=== PATIENT | female | born 2000 | race Caucasian/White ===

== ENCOUNTER 2019-07-09 16:17 | Emergency (ER) | payer OTHER, SELFPAY ==
[2019-07-09 16:27] VITALS: BP 152/79; PULSE 95; RESP 100; TEMP 36.8; O2SAT 16
--- NOTE | 2019-07-09 16:36 | ED.BACK ---
HPI - Back Pain/Injury General Chief Complaint: Back Pain/Injury Stated Complaint: Sharp middle back pain Time Seen by Provider: 07/09/19 16:36 Source: patient and RN notes reviewed History of Present Illness HPI Narrative: Patient is a 19-year-old female that presents the urgent care with complaints of mid back pain. Patient states that it radiates up to the shoulder blades occasionally. Patient states that she took 3 test on Friday and she is currently . Patient states she has a [facility] appointment on the . Patient was requesting to find out how far along she was . Patient seemed less concerned about her back pain. Patient has not used anything for her pain. Denies any urinary symptoms. No other acute complaints. No acute distress noted. Patient read the plan of care. Related Data Home Medications Medication Instructions Recorded Confirmed No Home Medications 07/09/19 07/09/19 Allergies Allergy/AdvReac Type Severity Reaction Status Date / Time No Known Allergies Allergy Unknown Verified 07/09/19 16:33 Review of Systems Review of Systems: Narrative: CONSTITUTIONAL: Denies fever, chills, or sweats. EYES: Denies visual changes, redness, or discharge. ENT: Denies rhinorrhea, congestion, sore throat, or otalgia. CARDIOVASCULAR: Denies chest pain, palpitations, or edema. RESPIRATORY: Denies cough or dyspnea. GASTROINTESTINAL: Denies abdominal pain, nausea, vomiting, or diarrhea. GENITOURINARY: Denies dysuria or hematuria. SKIN: Denies rash or itching. MUSCULOSKELETAL: Reports of mid back pain NEUROLOGIC: Denies headache, numbness, or weakness. All other systems reviewed are negative, except as documented in HPI. PMFSH Comments At the time of my signature, I reviewed and agree with the nursing past medical, surgical, social, and family history. There is no relevant family history pertinent to the patient complaint. Exam Narrative: Exam Narrative: GENERAL: This is a well-nourished, well-developed patient, in no apparent distress. HEAD: normocephalic, atraumatic. EYES: PERRL. Sclera clear/white. Vision is grossly intact. EARS: External ears normal NOSE: External nose normal with no obvious nasal discharge THROAT: Mucous membranes moist NECK: Neck supple CARDIOVASCULAR: Regular rate and rhythm without murmurs, gallops, or rubs. RESPIRATORY: Clear to auscultation. Breath sounds equal bilaterally. No wheezes, rales, or rhonchi. SKIN: warm, intact with no suspicious lesions or rash, good texture and turgor. NEURO: awake, alert, and oriented to person, place and time. There were no obvious focal neurologic abnormalities. EXTREMITIES: No clubbing, cyanosis, or edema. BACK: Mild mid thoracic tenderness without crepitus or deformity; negative bilateral CVA tenderness Course Vital Signs Vital signs: Vital Signs Temperature 98.2 F 07/09/19 16:27 Pulse Rate 95 07/09/19 16:27 Respiratory Rate 100 H 07/09/19 16:27 Blood Pressure 152/79 H 07/09/19 16:27 Pulse Oximetry 16 L 07/09/19 16:27 Temperature 98.2 F 07/09/19 16:27 Pulse Rate 95 07/09/19 16:27 Respiratory Rate 100 H 07/09/19 16:27 Blood Pressure 152/79 H 07/09/19 16:27 Pulse Oximetry 16 L 07/09/19 16:27 Reviewed?patient is informed that they may have pre-hypertension or hypertension based on a blood pressure reading in the department. I recommend the patient call the primary care provider listed on their discharge instructions or a physician of their choice this week to arrange follow-up for further evaluation of possible pre-hypertension or hypertension. MDM - Back Pain/Injury MDM Narrative Medical decision making narrative: Advised the patient to use Tylenol as needed for back pain. May use heating pad or ice intermittently as needed. Follow-up with [facility] as scheduled on July 19. Differential Diagnosis Differential diagnosis: Likely lumbar radiculopathy, sciatica, strain of lumbar region and thoracic back
== END 2019-07-09 16:50 | disposition home or self-care (01) ==
PROVIDERS: Emergency Provider Nurse Practitioner Family
DX: M54.6 Pain in thoracic spine (principal)
CPT/HCPCS: 99211; G0463

== ENCOUNTER → 2019-07-26 13:23 | Outpatient (CLI) | payer OTHER, SELFPAY ==
--- NOTE | ~2019-07-26 | US_ITS ---
EXAMINATION: US OB <= 14 weeks fetus DATE: 07/26/2019 14:16 INDICATION: Establish dating of during first trimester. TECHNIQUE: Real-time pelvic ultrasound utilizing both a transvaginal and transabdominal probe was pe rformed. The interpreting radiologist was not present for the study. COMPARISON: None. FINDINGS: The uterus measures 12.6 x 7.1 x 8.0 cm. There is an intrauterine gestational sac. A yolk sac and fe courtney pole are identified. The crown rump length measures 5.8 cm, which correlates with an estimated ge stational age of 12 weeks and 2 days. heart motion is identified measuring 162 beats per minute (bpm) by M-mode Doppler. The right ovary measures 2.9 x 1.7 x 3.5 cm. The left ovary measures 2.9 x 1.2 x 1.7 cm. There is no free fluid in the pelvis. IMPRESSION: 1. Single living fetus with heart rate of 162 bpm. 2. Gestational age by ultrasound of 12 weeks 2 day(s) +/- 1 week and 1 day with ultrasound estimated date of delivery (ARTEMIO) of 02/05/2020. Reviewed, dictated and finalized at location A. [facility] IMPRESSION: 1. Single living fetus with heart rate of 162 bpm. 2. Gestational age by ultrasound of 12 weeks 2 day(s) +/- 1 week and 1 day wit h ultrasound estimated date of delivery (ARTEMIO) of 02/05/2020.
== END ==
PROVIDERS: Visit Provider Obstetrics & Gynecology Gynecology
DX: O26.841 Uterine size-date discrepancy, first trimester (principal); Z3A.12 12 weeks gestation of pregnancy
CPT/HCPCS: 76801

== ENCOUNTER 2019-09-01 04:56 | Emergency (ER) | payer OTHER, MEDICAID, SELFPAY ==
[2019-09-01 05:00] VITALS: BP 122/99; PULSE 97; RESP 18; TEMP 36.8; O2SAT 100
--- NOTE | 2019-09-01 05:20 | ED.ABDPAIN ---
HPI - Abdominal Pain General Chief Complaint: Abdominal Pain Stated Complaint: pelvic pain Time Seen by Provider: 09/01/19 04:57 History of Present Illness HPI narrative: Patient is a 19-year-old female who is a G1, P0 and presents the ER with pelvic pain. Had some sharp pain in her left lower abdomen moving from her vagina up towards her umbilicus. No aggravating or alleviating factors. No nausea/vomiting/fever/chills/sweats. Has had intermittent diarrhea since leaving home last few weeks but has not acutely worsened tonight. Known IUP at 17 weeks 4 days. Patient also reports that she is lower extremity tingling with position change. It is transient worse with sitting. Denies any recent blood work to check for electrolyte abnormalities. No dysuria/urinary frequency/urgency. She is without vaginal bleeding or vaginal discharge. Has not yet felt her baby move. Related Data Home Medications Medication Instructions Recorded Confirmed aspirin [Aspirin Childrens] 81 mg PO DAILY 09/01/19 no.144-folic acid mcg PO 09/01/19 [] Allergies Allergy/AdvReac Type Severity Reaction Status Date / Time No Known Allergies Allergy Unknown Verified 09/01/19 05:11 Review of Systems Review of Systems: All systems reviewed & are unremarkable except as noted in HPI and below Constitutional: Constitutional: Denies chills, Denies fever(s) and Denies weakness ENT: Denies nasal congestion and Denies sore throat Respiratory: Respiratory: Denies cough and Denies dyspnea Gastrointestinal: Gastrointestinal: Reports abdominal pain, Reports diarrhea, Denies nausea and Denies vomiting Genitourinary: Genitourinary: Denies nocturia, Denies dysuria, Reports pelvic pain and Denies vaginal discharge PMFSH Past Medical History Medical History (Updated 09/01/19 @ 05:58 by Ramon Ferrer MD) No pertinent past medical history Surgical History Surgical History (Updated 09/01/19 @ 05:25 by Ramon Ferrer MD) No pertinent past surgical history Social History Social History (Updated 09/01/19 @ 05:25 by Ramon Ferrer MD) Social History: Non-smoker Exam Narrative: Exam Narrative: GENERAL: Well-appearing, well-nourished, and in no acute distress. HEAD: Normocephalic, atraumatic. ENT: Mucous membranes moist. ABDOMEN: Soft, mild discomfort in the lower abdomen on the lateral aspects of the palpable uterus. EXTREMITIES: Normal range of motion. No edema. NEURO: Alert and oriented x3. No sensory deficit with palpation of the lower extremities. PSYCH: Normal mood and affect. Course Course Emergency Course: FHT's dopplered in the 150's by nursing staff. Small amount of bacteria on UA, will give keflex and d/c. Vital Signs Vital signs: Vital Signs Temperature 98.2 F 09/01/19 05:00 Pulse Rate 97 09/01/19 05:00 Respiratory Rate 18 09/01/19 05:00 Blood Pressure 122/99 H 09/01/19 05:00 Pulse Oximetry 100 09/01/19 05:00 Temperature 98.2 F 09/01/19 05:00 Pulse Rate 97 09/01/19 05:00 Respiratory Rate 18 09/01/19 05:00 Blood Pressure 122/99 H 09/01/19 05:00 Pulse Oximetry 100 09/01/19 05:00 MDM - Abdominal Pain Lab Data Result diagrams: 09/01/19 05:29 09/01/19 05:29 Labs: Lab Results 09/01/19 09/01/19 09/01/19 Range/Units 05:29 05:29 05:29 WBC 7.1 (4.5-10.0) K/mm3 RBC 3.80 L (4.2-5.4) M/mm3 Hgb 11.4 L (12.0-15.0) g/dL Hct 33.1 L (37.0-47.0) % MCV 87.1 (80-100) fl MCH 30.0 (26-34) pg MCHC 34.4 (32-36) g/dl RDW 12.3 (11.5-14.5) % Plt Count 216 (150-375) k/mm3 MPV 9.9 (7.4-10.4) fl Immature Gran % (Auto) 0.6 H (0-0.5) % Neut % (Auto) 71.0 (45.5-73.1) % Lymph % (Auto) 22.4 (18.3-44.2) % [place] % (Auto) 5.3 (2.6-8.5) % Eos % (Auto) 0.4 (0-4.4) % Baso % (Auto) 0.3 (0.2-1.2) % Lymph # (Auto) 1.59 (0.9-3.2) K/mm3 [place] # (Auto) 0.4 (0.1-0.6) K/mm3
[2019-09-01 05:35] LABS: Basophils Percent Auto 0.3 % (0.2-1.2); Eosinophils Percent Auto 0.4 % (0-4.4); Hematocrit 33.1 % (37.0-47.0); Hemoglobin 11.4 g/dL (12.0-15.0); Immature Granulocyte Absolute 0.04 K/mm3 (0.00-0.031); Immature Granulocyte Percent A 0.6 % (0-0.5); Lymphocytes Absolute Auto 1.59 K/mm3 (0.9-3.2); Lymphocytes Percent Auto 22.4 % (18.3-44.2); Mean Corpuscular HGB Conc 34.4 g/dl (32-36); Mean Corpuscular Volume 87.1 fl (80-100); Mean Platelet Volume 9.9 fl (7.4-10.4); Monocytes Absolute Auto 0.4 K/mm3 (0.1-0.6); Monocytes Percent Auto 5.3 % (2.6-8.5); Neutrophils Absolute Auto 5.1 K/mm3 (1.3-6.7); Platelet Count Result 216 k/mm3 (150-375); Red Cell Distribution Width 12.3 % (11.5-14.5); White Blood Count 7.1 K/mm3 (4.5-10.0)
[2019-09-01] MEDS: ACETAMINOPHEN 500 MG TABLET 1000 MG PO (05:38)
[2019-09-01 05:42] LABS: Add Urine Microscopic? YES; Appearance Urine Cloudy (Clear); Bacteria Urine Trace /hpf; Bilirubin Urine Negative (Negative); Blood Urine Negative (Negative); Color Urine Yellow (Yellow); Glucose Urine UA Negative (Negative); Ketones Urine Negative (Negative); Leukocyte Esterase Ur 1+ LEU/UL (Negative); Mucus Urine Rare /lpf; Nitrate Urine Negative (Negative); Protein Urine Negative (Negative); RBC Urine 0-2 /hpf (0-2); Specific Grav Ur 1.014 (1.001-1.035); Squamous Epithelial Cell Urine Many /hpf (Few); Urobilinogen Urine Negative mg/dL (<2.0)
[2019-09-01 05:57] LABS: Blood Urea Nitrogen 4 mg/dL (7-17); Calcium 8.6 mg/dL (8.4-10.2); Carbon Dioxide 22 mmol/L (22-30); Chloride 105 mmol/L (98-107); Estimated Glomerular Filt Rate > 60; Glucose 90 mg/dL (65-105); Potassium 3.6 mmol/L (3.4-5.0); Sodium 136 mmol/L (137-145)
[2019-09-01 06:16] VITALS: BP 125/91; PULSE 91; RESP 16; O2SAT 100
== END 2019-09-01 06:18 | disposition home or self-care (01) ==
PROVIDERS: Emergency Provider Emergency Medicine
DX: O26.892 Other specified pregnancy related conditions, second trimester (principal); R10.2 Pelvic and perineal pain; O23.42 Unspecified infection of urinary tract in pregnancy, second trimester; Z3A.17 17 weeks gestation of pregnancy
CPT/HCPCS: 36415; 80048; 81001; 85025; 99283; A9270

== ENCOUNTER 2019-09-09 16:02 | Outpatient (CLI) | payer OTHER, MEDICAID, SELFPAY ==
--- NOTE | ~2019-09-09 | US_ITS ---
EXAMINATION: US OB /maternal detail DATE: 09/09/2019 17:05 INDICATION: survey and gestational dating TECHNIQUE: Multiple obstetric sonographic images performed. FINDINGS: Comparison ultrasound dated 07/26/2019 There is a single living fetus in vertex presentation. The placenta is anterior without placenta pre via. Amniotic fluid volume is normal. Cervical length 4.7 cm. cardiac activity and movement is noted with a heart rate of 145 beats per minute. The following anatomy was identified as normal: 3 vessel cord cord insertion kidneys urinary bladder stomach spine diaphragm ventricles cisterna magna cerebellum survey limited for evaluation of four-chamber heart due to lie and patient body habitus. The following biometric data were obtained: BPD: 47mm corresponds to gestational age 20 weeks 1 days. Head circumference: 162 mm corresponds to gestational age 19 weeks 0 days. Abdominal circumference: 149 mm corresponds to gestational age 20 weeks 1 days. Femur length: 28 mm corresponds to gestational age 18 weeks 4 days. Head circumference to abdominal circumference ratio: 1.09 (normal range for expected gestational age is 1.09-1.26). Estimated weight: 292 grams +/- 44 grams using Hadlock method. IMPRESSION: 1: Single living intrauterine with an estimated gestational age of 18weeks 5days by initial ultrasound measurements, with an EDC of 02/05/2020 in vertex presentation. 2. Survey limited for evaluation of four-chamber heart. The remainder of the survey is unremarkable. Recommend follow-up ultrasound as clinically warranted. Reviewed, dictated and finalized at location A. IMPRESSION: 1: Single living intrauterine with an estimated gestational age of 18 weeks 5days by initial ultrasound measurements, with an EDC of 02/05/2020 in eliana katherine presentation. 2. Survey limited for evaluation of four-chamber heart. The remainder of the s urvey is unremarkable. Recommend follow-up ultrasound as clinically warranted.
== END 2019-09-09 16:03 | disposition home or self-care (01) ==
LOC: ANHIMG 16:07
PROVIDERS: Visit Provider Obstetrics & Gynecology Gynecology
DX: Z36.9 Encounter for antenatal screening, unspecified (principal); Z3A.18 18 weeks gestation of pregnancy
CPT/HCPCS: 76805

== ENCOUNTER 2019-10-07 10:10 | Outpatient (CLI) | payer OTHER, MEDICAID, SELFPAY ==
--- NOTE | ~2019-10-07 | US_ITS ---
EXAMINATION: US OB limited DATE: 10/07/2019 11:06 INDICATION: Incomplete anatomic survey. TECHNIQUE: Real-time ultrasound of the pelvis was performed. COMPARISON: Ultrasound 09/09/2019, 07/26/2019 FINDINGS: There is a single fetus in vertex presentation. The placenta is anterior. heart rate is 133 be ats per minute (bpm). The heart views are normal. The amniotic fluid volume is subjectively nor mal. IMPRESSION: 1. Single living fetus in vertex presentation. 2. Normal heart views. Reviewed, dictated and finalized at location A.
== END 2019-10-07 10:11 | disposition home or self-care (01) ==
PROVIDERS: Visit Provider Obstetrics & Gynecology Gynecology
DX: Z36.2 Encounter for other antenatal screening follow-up (principal)
CPT/HCPCS: 76815

== ENCOUNTER 2019-10-29 17:29 | Observation (INO) | payer OTHER, MEDICAID, SELFPAY ==
[2019-10-29 17:59] VITALS: BP 138/76; PULSE 97
[2019-10-29 18:00] VITALS: BP 128/90; PULSE 99
[2019-10-29] MEDS: ACETAMINOPHEN 500 MG TABLET 1000 MG PO (18:53)
[2019-10-29 18:58] LABS: Add Urine Microscopic? YES; Appearance Urine Cloudy (Clear); Bacteria Urine Trace /hpf; Bilirubin Urine Negative (Negative); Blood Urine Negative (Negative); Color Urine Yellow (Yellow); Glucose Urine UA Negative (Negative); Ketones Urine Negative (Negative); Leukocyte Esterase Ur Negative LEU/UL (NEGATIVE); Mucus Urine Few /lpf; Nitrate Urine Negative (Negative); Protein Urine 1+ mg/dL (Negative); RBC Urine 0-2 /hpf (0-2); Specific Grav Ur 1.019 (1.001-1.035); Squamous Epithelial Cell Urine Many /hpf (Few); Urobilinogen Urine Negative mg/dL (<2.0); WBC Urine 0-3 /hpf (0-3)
[2019-10-29 19:00] VITALS: BP 131/80; PULSE 91; TEMP 36.6
[2019-10-29 19:03] VITALS: BMI 23.4
--- NOTE | 2019-10-29 19:04 | OBADM ---
This patient, Becky Tao, admitted to the OB room OB Post 116 for observation. Patient/family oriented to hospital policies and general routines including ID bracelet, bed and alarms, visiting hours, pain management, procedures, bathroom and other care routines, personal items, smoking policy, room service/diet, and visiting hours. Patient/Family are encouraged to report perceived risks to care and to ask questions if they do not understand what they are told or what they should do.
--- NOTE | 2019-11-03 11:57 | PM.OBTRLD ---
OB - Triage/Final Diagnosis Evaluation Laboratory results: Laboratory Tests 10/29/19 18:40 Urine Color Yellow Urine Appearance Cloudy H Urine pH 6.0 Ur Specific [place] 1.019 Urine Protein 1+ H Urine Glucose (UA) Negative Urine Ketones Negative Ur Blood (Man) Negative Urine Nitrate Negative Urine Bilirubin Negative Urine Urobilinogen Negative Ur Leukocyte Esterase Negative Urine RBC 0-2 Urine WBC 0-3 Ur Squamous Epith Cells Many H Urine Bacteria Trace Urine Mucus Few H Final Diagnosis (1) Round ligament pain: Code(s): N94.9 - Unspecified condition associated with female genital organs and menstrual cycle Status: Acute
== END 2019-10-29 19:30 | disposition home or self-care (01) ==
PROVIDERS: Admitting Provider Obstetrics & Gynecology; Visit Provider Obstetrics & Gynecology
DX: O26.892 Other specified pregnancy related conditions, second trimester (principal); R10.2 Pelvic and perineal pain; Z3A.25 25 weeks gestation of pregnancy
CPT/HCPCS: 81001; 87086; 87088; A9270; G0378; G0379

== ENCOUNTER 2019-11-09 07:57 | Outpatient (CLI) | payer OTHER, MEDICAID, SELFPAY ==
[2019-11-09 09:03] LABS: Glucose Fasting Gestational 92 mg/dL (>/=95)
[2019-11-09 10:46] LABS: Glucose 1 Hour Gest 166 mg/dL (>/=180)
[2019-11-09 11:33] LABS: Glucose 2 Hour Gest 115 mg/dL (>/= 155)
[2019-11-09 12:38] LABS: Glucose 3 Hour Gest 114 mg/dL (>/=140)
== END 2019-11-09 07:58 | disposition home or self-care (01) ==
LOC: ANHLAB 08:00
PROVIDERS: Visit Provider Obstetrics & Gynecology Gynecology
DX: R79.9 Abnormal finding of blood chemistry, unspecified (principal)
CPT/HCPCS: 36415; 82951; 82952

== ENCOUNTER → 2019-12-14 15:02 | Outpatient (CLI) | payer OTHER, MEDICAID, SELFPAY ==
--- NOTE | ~2019-12-14 | US_ITS ---
EXAMINATION: US OB follow up DATE: 12/14/2019 15:54 INDICATION: Size greater than dates during third trimester TECHNIQUE: Real-time ultrasound of the pelvis was performed. The interpreting radiologist was not pre sent for the study. COMPARISON: None. FINDINGS: There is a single living fetus in vertex presentation. The placenta is anterior. card iac activity and movement are noted. heart rate is 133 beats per minute (bpm). The amniot ic fluid index is 9.9 cm which is normal. The following biometric data were obtained: Biparietal diameter (BPD): 8.3 cm; head circumference (HC): 30.0 cm; abdominal circumference (AC): 27 .9 cm; femur length (FL): 6.1 cm. These measurements are concordant. Estimated weight is 1918 g +/- 287 g, which correlates with the 32nd percentile when 02/05/2020 is used as estimated date of delivery. As single measurements, these parameters are each equal to the following estimated gestational ages w ith ranges of +/- 2 standard deviations: BPD: 33 weeks 3 days ( 30 weeks 2 days - 36 weeks 3 days). HC: 33 weeks 2 days ( 30 weeks 2 days - 36 weeks 2 days). AC: 32 weeks 0 days ( 29 weeks 0 days - 35 weeks 0 days). FL: 31 weeks 6 days ( 28 weeks 6 days - 34 weeks 5 days). estimated gestational age based solely on measurements from this exam is 32 weeks 5 days +/- 2 weeks 2 days. IMPRESSION: 1. Single living fetus in vertex presentation. 2. Normal amniotic fluid index. 3. Estimated weight is 1918 g +/- 287 g, which correlates with the 32nd percentile when 02/05/20 20 is used as estimated date of delivery. Reviewed, dictated and finalized at location A. IMPRESSION: 1. Single living fetus in vertex presentation. 2. Normal amniotic fluid index. 3. Estimated weight is 1918 g +/- 287 g, which correlates with the 32nd p ercentile when 02/05/2020 is used as estimated date of delivery.
== END ==
PROVIDERS: Visit Provider Nurse Practitioner
DX: O36.63X0 Maternal care for excessive fetal growth, third trimester, not applicable or unspecified (principal); Z3A.32 32 weeks gestation of pregnancy
CPT/HCPCS: 76816

== ENCOUNTER 2020-01-06 16:04 | Outpatient (CLI) | payer OTHER, MEDICAID, SELFPAY ==
[2020-01-06] VITALS (8 sets, daily range): BP systolic 123–136; BP diastolic 73–84; PULSE 92–110; BMI 43.4
[2020-01-06 16:57] LABS: Basophils Percent Auto 0.2 % (0.2-1.2); Eosinophils Absolute Auto 0.1 K/mm3 (0-0.3); Eosinophils Percent Auto 0.6 % (0-4.4); Hematocrit 31.6 % (37.0-47.0); Hemoglobin 10.6 g/dL (12.0-15.0); Immature Granulocyte Absolute 0.05 K/mm3 (0.00-0.031); Immature Granulocyte Percent A 0.6 % (0-0.5); Lymphocytes Absolute Auto 1.27 K/mm3 (0.9-3.2); Mean Corpuscular HGB Conc 33.5 g/dl (32-36); Mean Corpuscular Hemoglobin 27.3 pg (26-34); Mean Corpuscular Volume 81.4 fl (80-100); Mean Platelet Volume 10.9 fl (7.4-10.4); Monocytes Absolute Auto 0.7 K/mm3 (0.1-0.6); Monocytes Percent Auto 7.8 % (2.6-8.5); Neutrophils Percent Auto 76.8 % (45.5-73.1); Platelet Count Result 266 k/mm3 (150-375); Red Blood Count 3.88 M/mm3 (4.2-5.4); Red Cell Distribution Width 12.9 % (11.5-14.5); White Blood Count 9.1 K/mm3 (4.5-10.0)
[2020-01-06 16:59] LABS: Add Urine Microscopic? NO; Appearance Urine Clear (Clear); Bilirubin Urine Negative (Negative); Blood Urine Negative (Negative); Color Urine Colorless (Yellow); Glucose Urine UA Negative (Negative); Ketones Urine Negative (Negative); Leukocyte Esterase Ur Negative LEU/UL (Negative); Nitrate Urine Negative (Negative); Protein Urine Negative (Negative); Urobilinogen Urine Negative mg/dL (<2.0)
[2020-01-06 17:05] LABS: Creatinine Urine 19.8 mg/dL; Total Protein Urine Random 13 mg/dL
[2020-01-06 17:10] LABS: Alanine Aminotransferase 11 U/L (4-35); Albumin Level 3.6 g/dL (3.5-5.1); Alkaline Phosphatase 138 U/L (38-126); Anion Gap 8 mmol/L (8-16); Aspartate Amino Transferase 16 U/L (14-36); Bilirubin,Total 0.2 mg/dL (0.2-1.3); Blood Urea Nitrogen 5 mg/dL (7-17); Calcium 8.8 mg/dL (8.4-10.2); Carbon Dioxide 22 mmol/L (22-30); Chloride 103 mmol/L (98-107); Estimated CRCL calculation 191 ml/min; Estimated Glomerular Filt Rate > 60; Glucose 93 mg/dL (65-105); Potassium 3.8 mmol/L (3.4-5.0); Sodium 133 mmol/L (137-145); Specific Grav Ur 1.003 (1.001-1.035)
--- NOTE | 2020-01-06 17:43 | PC.NURSE ---
Dr. Nicolas returned page and informed of BP's, lab results, and reactive NST. OK to discharge to home. Pt to complete 24 hr urine at home and return to L&D tomorrow. Pt to page Dr. Nicolas Friday to go over results.
== END 2020-01-06 18:03 | disposition home or self-care (01) ==
LOC: ANHOBOP 16:10 → ANHOBPP 16:11
PROVIDERS: Visit Provider Obstetrics & Gynecology Gynecology
DX: O13.9 Gestational [pregnancy-induced] hypertension without significant proteinuria, unspecified trimester (principal)
CPT/HCPCS: 36415; 59025; 80053; 81003; 82570; 84156; 84550; 85025; 99199

== ENCOUNTER 2020-01-07 17:38 | Outpatient (CLI) | payer OTHER, MEDICAID, SELFPAY ==
[2020-01-07 17:46] VITALS: BMI 43.4
[2020-01-07 18:17] LABS: Collection Time Urine 24 HOURS
[2020-01-07 18:18] LABS: Total Volume 24 Hour Urine 3300 ml
[2020-01-07 18:19] LABS: Specific Gravity Ur 1.007
[2020-01-07 18:23] LABS: Patient Weight 261 Lbs
[2020-01-07 18:28] LABS: Creatinine Clearance Urine 192.2 ml/min (75-125); Creatinine Urine 53.5 mg/dL
[2020-01-07 19:56] LABS: Total Protein Urine 24 Hr 274 mg/24hr (0-149); Total Protein Urine Random 8.3 mg/dL (0.0-11.9)
== END 2020-01-07 17:39 | disposition home or self-care (01) ==
LOC: ANHOBOP 17:41
PROVIDERS: Visit Provider Obstetrics & Gynecology Gynecology
DX: O13.9 Gestational [pregnancy-induced] hypertension without significant proteinuria, unspecified trimester (principal)
CPT/HCPCS: 81050; 82575; 84156

== ENCOUNTER 2020-01-11 16:24 | Outpatient (CLI) | payer OTHER, MEDICAID, SELFPAY ==
[2020-01-11 17:00] LABS: Basophils Percent Auto 0.4 % (0.2-1.2); Eosinophils Percent Auto 0.2 % (0-4.4); Hematocrit 32.9 % (37.0-47.0); Hemoglobin 10.9 g/dL (12.0-15.0); Immature Granulocyte Absolute 0.05 K/mm3 (0.00-0.031); Immature Granulocyte Percent A 0.6 % (0-0.5); Lymphocytes Absolute Auto 1.37 K/mm3 (0.9-3.2); Lymphocytes Percent Auto 16.2 % (18.3-44.2); Mean Corpuscular HGB Conc 33.1 g/dl (32-36); Mean Corpuscular Hemoglobin 26.8 pg (26-34); Mean Corpuscular Volume 80.8 fl (80-100); Monocytes Absolute Auto 0.7 K/mm3 (0.1-0.6); Monocytes Percent Auto 7.7 % (2.6-8.5); Neutrophils Absolute Auto 6.3 K/mm3 (1.3-6.7); Neutrophils Percent Auto 74.9 % (45.5-73.1); Platelet Count Result 269 k/mm3 (150-375); Red Blood Count 4.07 M/mm3 (4.2-5.4); Red Cell Distribution Width 12.7 % (11.5-14.5); White Blood Count 8.5 K/mm3 (4.5-10.0)
[2020-01-11 17:01] VITALS: BP 117/82; PULSE 93
[2020-01-11 17:07] LABS: Add Urine Microscopic? YES; Appearance Urine Clear (Clear); Bacteria Urine Trace /hpf; Bilirubin Urine Negative (Negative); Blood Urine Negative (Negative); Calcium Oxalate Crystals Urine Present /hpf; Color Urine Yellow (Yellow); Glucose Urine UA 1+ mg/dL (Negative); Ketones Urine Negative (Negative); Leukocyte Esterase Ur Negative LEU/UL (NEGATIVE); Mucus Urine Heavy /lpf; Nitrate Urine Negative (Negative); Protein Urine 1+ mg/dL (Negative); RBC Urine 0-2 /hpf (0-2); Specific Grav Ur 1.029 (1.001-1.035); Squamous Epithelial Cell Urine Many /hpf (Few); WBC Urine 0-3 /hpf (0-3)
[2020-01-11 17:17] LABS: Alanine Aminotransferase 12 U/L (4-35); Albumin Level 3.6 g/dL (3.5-5.1); Alkaline Phosphatase 140 U/L (38-126); Anion Gap 8 mmol/L (8-16); Aspartate Amino Transferase 18 U/L (14-36); Bilirubin,Total 0.1 mg/dL (0.2-1.3); Blood Urea Nitrogen 7 mg/dL (7-17); Calcium 8.8 mg/dL (8.4-10.2); Carbon Dioxide 22 mmol/L (22-30); Chloride 106 mmol/L (98-107); Estimated Glomerular Filt Rate > 60; Glucose 87 mg/dL (65-105); Potassium 3.8 mmol/L (3.4-5.0); Sodium 136 mmol/L (137-145); Uric Acid 3.1 mg/dL (2.5-7.5)
[2020-01-11 17:21] VITALS: BP 119/64; PULSE 95
[2020-01-11 17:27] LABS: Creatinine Urine 311.8 mg/dL; Total Protein Urine Random 6 mg/dL
[2020-01-11 17:47] VITALS: BP 117/82; PULSE 95
== END 2020-01-11 17:50 | disposition home or self-care (01) ==
LOC: ANHOBOP 16:30 → ANHOBPP 16:30
PROVIDERS: Visit Provider Obstetrics & Gynecology Gynecology
DX: O13.9 Gestational [pregnancy-induced] hypertension without significant proteinuria, unspecified trimester (principal); Z3A.00 Weeks of gestation of pregnancy not specified
CPT/HCPCS: 36415; 59025; 80053; 81001; 82570; 84156; 84550; 85025; 87086; 87088; 99199

== ENCOUNTER 2020-01-20 19:05 | Observation (INO) | payer OTHER, MEDICAID, SELFPAY ==
--- NOTE | 2020-01-20 19:05 | OBADM ---
This patient, Becky Tao, admitted to the OB room Labor/Delivery/Recovery 105 for observation. Patient/family oriented to hospital policies and general routines including ID bracelet, bed and alarms, visiting hours, pain management, procedures, bathroom and other care routines, personal items, smoking policy, room service/diet, and visiting hours. Patient/Family are encouraged to report perceived risks to care and to ask questions if they do not understand what they are told or what they should do.
[2020-01-20 19:21] VITALS: RESP 20; TEMP 36.6
--- NOTE | 2020-02-21 09:59 | PM.OBTRLD ---
OB - Triage/Final Diagnosis Final Diagnosis (1) False labor: Code(s): O47.9 - False labor, unspecified Status: Acute
== END 2020-01-20 22:04 | disposition home or self-care (01) ==
PROVIDERS: Admitting Provider Obstetrics & Gynecology Gynecology; Visit Provider Obstetrics & Gynecology Gynecology
DX: O47.9 False labor, unspecified (principal); Z3A.00 Weeks of gestation of pregnancy not specified
CPT/HCPCS: G0378; G0379

== ENCOUNTER 2020-01-20 23:57 | Inpatient (IN) | payer OTHER, MEDICAID, SELFPAY ==
--- NOTE | 2020-01-20 23:57 | LDADM ---
This patient, Becky Tao, was admitted to Labor/Delivery/Recovery 104 on 01/21/20 at 00:07. Plans for labor, pain management and were discussed with patient. Patient/family oriented to hospital policies and general routines including ID bracelet, bed and alarms, visiting hours, pain management, procedures, bathroom and other care routines, personal items, smoking policy, room service/diet and guest tray routines, security routines, and visiting hours. Patient/Family are encouraged to report perceived risks to care and to ask questions if they do not understand what they are told or what they should do. See OBIX for further documentation.
[2020-01-21] VITALS (115 sets, daily range): BP systolic 95–146; BP diastolic 46–114; PULSE 71–295; RESP 16–18; TEMP 36.3–37.2; O2SAT 83–100; BMI 43.6
[2020-01-21] MEDS: LACTATED RINGERS 1,000 ML 125 ML IV CONT ×2 (00:23→01:04)
[2020-01-21 00:33] LABS: Basophils Percent Auto 0.1 % (0.2-1.2); Hematocrit 36.8 % (37.0-47.0); Hemoglobin 12.1 g/dL (12.0-15.0); Immature Granulocyte Absolute 0.04 K/mm3 (0.00-0.031); Immature Granulocyte Percent A 0.4 % (0-0.5); Lymphocytes Absolute Auto 0.84 K/mm3 (0.9-3.2); Lymphocytes Percent Auto 8.5 % (18.3-44.2); Mean Corpuscular HGB Conc 32.9 g/dl (32-36); Mean Corpuscular Hemoglobin 26.3 pg (26-34); Monocytes Absolute Auto 0.2 K/mm3 (0.1-0.6); Monocytes Percent Auto 1.6 % (2.6-8.5); Neutrophils Absolute Auto 8.8 K/mm3 (1.3-6.7); Neutrophils Percent Auto 89.4 % (45.5-73.1); Platelet Count Result 259 k/mm3 (150-375); Red Cell Distribution Width 12.6 % (11.5-14.5); White Blood Count 9.8 K/mm3 (4.5-10.0)
[2020-01-21 00:39] LABS: Uric Acid 4.3 mg/dL (2.5-7.5)
[2020-01-21 00:55] LABS: Alanine Aminotransferase 19 U/L (4-35); Albumin Level 3.7 g/dL (3.5-5.1); Alkaline Phosphatase 181 U/L (38-126); Anion Gap 10 mmol/L (8-16); Aspartate Amino Transferase 30 U/L (14-36); Bilirubin,Total 0.4 mg/dL (0.2-1.3); Blood Urea Nitrogen 9 mg/dL (7-17); Calcium 8.8 mg/dL (8.4-10.2); Carbon Dioxide 19 mmol/L (22-30); Chloride 105 mmol/L (98-107); Estimated CRCL calculation 163 ml/min; Estimated Glomerular Filt Rate > 60; Glucose 102 mg/dL (65-105); Potassium 3.8 mmol/L (3.4-5.0); Sodium 134 mmol/L (137-145)
--- NOTE | 2020-01-21 01:03 | WPDANESEPPF ---
Anes - Initial Pre Proc Eval Procedure: labor epidural Date/Time: 01/21/20 01:03 Surgeon: Jolie Nicolas MD Pre Op Diagnosis: labor pain Pre Op Diagnosis: CTX, SROM Patient Data Age: 19 Gender: F Height: 1.65 m Weight: 119 kg Last Vital Signs Pulse 96 01/21/20 01:01 BP 131/84 01/21/20 01:01 Pulse Ox 99 01/21/20 01:01 Allergies Allergy/AdvReac Type Severity Reaction Status Date / Time No Known Allergies Allergy Unknown Verified 09/01/19 05:11 Home Medications Medication Instructions Recorded Confirmed Type PNV cmb#95-ferrous fumarate-FA 1 tablet PO DAILY 10/29/19 01/20/20 History [] ergocalciferol (vitamin D2) 50,000 unit PO WEEKLY 01/20/20 01/20/20 History ferrous sulfate 134 mg PO DAILY 01/20/20 01/20/20 History Laboratory Tests 01/21/20 01/21/20 01/21/20 00:21 00:21 00:21 WBC 9.8 K/mm3 K/mm3 (4.5-10.0) RBC 4.60 M/mm3 M/mm3 (4.2-5.4) Hgb 12.1 g/dL g/dL (12.0-15.0) Hct 36.8 % L % (37.0-47.0) MCV 80.0 fl fl (80-100) MCH 26.3 pg pg (26-34) MCHC 32.9 g/dl g/dl (32-36) RDW 12.6 % % (11.5-14.5) Plt Count 259 k/mm3 k/mm3 (150-375) MPV 11.0 fl H fl (7.4-10.4) Immature Gran % (Auto) 0.4 % % (0-0.5) Neut % (Auto) 89.4 % H % (45.5-73.1) Lymph % (Auto) 8.5 % L % (18.3-44.2) [place] % (Auto) 1.6 % L % (2.6-8.5) Eos % (Auto) 0.0 % % (0-4.4) Baso % (Auto) 0.1 % L % (0.2-1.2) Lymph # (Auto) 0.84 K/mm3 L K/mm3 (0.9-3.2) [place] # (Auto) 0.2 K/mm3 K/mm3 (0.1-0.6) Eos # (Auto) 0.0 K/mm3 K/mm3 (0-0.3) Baso # (Auto) 0.0 K/mm3 K/mm3 (0.0-0.1) Abs Immat Gran (auto) 0.04 K/mm3 H K/mm3 (0.00-0.031) Absolute Neuts (auto) 8.8 K/mm3 H K/mm3 (1.3-6.7) Absolute Nucleated RBC 0.0 K/mm3 K/mm3 (0.0-0.012) Nucleated RBC % 0.0 % % (0.0-0.2) Sodium Potassium Chloride Carbon Dioxide Anion Gap BUN Creatinine Estim Creat Clear Calc Estimated GFR Glucose Uric Acid 4.3 mg/dL mg/dL (2.5-7.5) Calcium Total Bilirubin AST ALT Alkaline Phosphatase Total Protein Albumin RPR Pending 01/21/20 00:21 WBC RBC Hgb Hct MCV MCH MCHC RDW Plt Count MPV Immature Gran % (Auto) Neut % (Auto) Lymph % (Auto) [place] % (Auto) Eos % (Auto) Baso % (Auto) Lymph # (Auto) [place] # (Auto) Eos # (Auto) Baso # (Auto) Abs Immat Gran (auto) Absolute Neuts (auto) Absolute Nucleated RBC Nucleated RBC % Sodium 134 mmol/L L mmol/L (137-145) Potassium 3.8 mmol/L mmol/L (3.4-5.0) Chloride 105 mmol/L mmol/L (98-107) Carbon Dioxide 19 mmol/L L mmol/L (22-30) Anion Gap 10 mmol/L mmol/L (8-16) BUN 9 mg/dL mg/dL (7-17) Creatinine 0.60 mg/dL L mg/dL (0.7-1.0) Estim Creat Clear Calc 163 ml/min ml/min Estimated GFR > 60 (59 - ) Glucose 102 mg/dL mg/dL (65-105) Uric Acid Calcium 8.8 mg/dL mg/dL (8.4-10.2) Total Bilirubin 0.4 mg/dL mg/dL (0.2-1.3) AST 30 U/L U/L (14-36) ALT 19 U/L U/L (4-35) Alkaline Phosphatase 181 U/L H U/L (38-126) Total Protein 7.0 g/dL g/dL (6.3-8.2) Albumin 3.7 g/dL g/dL (3.5-5.1) RPR Patient hx anesthesia problems: none Family hx anesthesia problems: none PMFSH Past Medical History Medical History No pertinent past medical history Round ligament pain Surgical History Surgical History (Revie
[2020-01-21] MEDS: OXYTOCIN 30 UNITS/NS 500 ML 30 UNITS/500 ML BAG 125 UNITS IV CONT (03:52)
--- NOTE | 2020-01-21 04:05 | WPDOBADMIT ---
Obstetrics - Admit Note Admission Note: record reviewed. No pertinent additions to the history and/or any subsequent changes in the physical findings that are not consistent with the expected course of the were found. Additions to the history and/or subsequent changes in the physical findings follow. None.Here in labor.
--- NOTE | 2020-01-21 04:06 | PM.OBPRVD ---
OB - Delivery Note Procedure Delivery date: 01/21/20 Procedure: Intrapartal events: None Induction method: none Delivery monitor: external FHT and external uterine Route of delivery: Laceration description: Perineal - 2nd Degree Delivery repair: vicryl (3-0) Specimen: No Estimated blood loss (mL): 100 Disposition: floor [place] Baby Date of : 01/21/20 Weeks of gestation at delivery: 37 gender: Male Weight (pounds): 6 Weight (ounces): 7 presentation: vertex Placenta delivery description: Spontaneous cord vessel description: 3 Vessels, Nuchal Cord and Tight score one minute: 9 score five minutes: 9
--- NOTE | 2020-01-21 04:08 | PM.OBDSVD ---
DS: Admitting Diagnosis Admitting Diagnosis Admitting Diagnosis: CTX, SROM DS: Discharge Diagnosis Discharge Diagnosis (1) (normal spontaneous vaginal delivery): Code(s): O80 - Encounter for full-term uncomplicated delivery Status: Acute (2) 37 weeks gestation of : Code(s): Z3A.37 - 37 weeks gestation of Status: Acute OB - DS: Summary OB Procedures : Ultrasound OB Procedures Intrapartum: Spontaneous Vag Delivery OB Procedures: : None Peripartum Data Infant Delivery Method: Natural Vaginal Laceration description: Perineal - 2nd Degree complications: none Status at Discharge Functional status at discharge: independent ambulation Overall status at discharge: patient is progressing back to baseline Time Spent with Patient Time attestation: Total time spent providing and/or coordinating discharge services: DS: Data Data Completed and Pending Labs on day of discharge: Labs from last 24 hours 01/21/20 01/21/20 01/21/20 00:21 00:21 00:21 WBC RBC Hgb Hct MCV MCH MCHC RDW Plt Count MPV Immature Gran % (Auto) Neut % (Auto) Lymph % (Auto) [place] % (Auto) Eos % (Auto) Baso % (Auto) Lymph # (Auto) [place] # (Auto) Eos # (Auto) Baso # (Auto) Abs Immat Gran (auto) Absolute Neuts (auto) Absolute Nucleated RBC Nucleated RBC % Sodium 134 L Potassium 3.8 Chloride 105 Carbon Dioxide 19 L Anion Gap 10 BUN 9 Creatinine 0.60 L Estim Creat Clear Calc 163 Estimated GFR > 60 Glucose 102 Uric Acid Calcium 8.8 Total Bilirubin 0.4 AST 30 ALT 19 Alkaline Phosphatase 181 H Total Protein 7.0 Albumin 3.7 RPR Pending Blood Type O Positive Antibody Screen Negative 01/21/20 01/21/20 00:21 00:21 WBC 9.8 RBC 4.60 Hgb 12.1 Hct 36.8 L MCV 80.0 MCH 26.3 MCHC 32.9 RDW 12.6 Plt Count 259 MPV 11.0 H Immature Gran % (Auto) 0.4 Neut % (Auto) 89.4 H Lymph % (Auto) 8.5 L [place] % (Auto) 1.6 L Eos % (Auto) 0.0 Baso % (Auto) 0.1 L Lymph # (Auto) 0.84 L [place] # (Auto) 0.2 Eos # (Auto) 0.0 Baso # (Auto) 0.0 Abs Immat Gran (auto) 0.04 H Absolute Neuts (auto) 8.8 H Absolute Nucleated RBC 0.0 Nucleated RBC % 0.0 Sodium Potassium Chloride Carbon Dioxide Anion Gap BUN Creatinine Estim Creat Clear Calc Estimated GFR Glucose Uric Acid 4.3 Calcium Total Bilirubin AST ALT Alkaline Phosphatase Total Protein Albumin RPR Blood Type Antibody Screen Discharge Plan Discharge Attending physician on discharge: Jolie Nicolas Discharging Clinician: Jolie Nicolas Anticipated Discharge Date/Time: 01/23/20 04:09 Patient Disposition: Home, Self-Care Activity: pelvic rest Diet: regular Discharge Instructions: Education: Mom and Baby Guide Given to: Patient Follow-Up: Call your delivering provider's office for an appointment to be seen in: 4-6 weeks Mom and baby should come to the [facility] for the follow-up appointment. Appointment Date/Time: Friday01/25/2020 at 11:00 am Call [phone] if you are unable to keep your appointment time. BREAST CARE: * Wear a snug supportive bra. * For engorgement discomfort: Bottle Feeding: * May apply ice packs EPISIOTOMY/PERINEAL CARE: * Until bleeding stops, use your bryan bottle after urinating * Change your pad frequently throughout the day * You may take sitz baths several times a day (fill your bathtub with warm water and soak for 20 minutes.) Do NOT bathe in the water * No tub baths until seen by your physician - You may shower ACTIVITY: * Rest as much as possible. * Do not exercise or lift anything heavier than your baby (such as laundry or other children.) * Avoid stairs or driving as muc
[2020-01-21] MEDS: BENZOCAINE 20% AER SPR (*SP) 56 GM CAN 1 SPRAY TOPICAL (05:45)
[2020-01-21] MEDS: WITCH HAZEL 40 PADS 1 PAD TOPICAL (05:45)
--- NOTE | 2020-01-21 06:23 | OBPPTRN ---
Patient transferred to post room # 282 via wheelchair. Pt's mother as her support person is present. Oriented to unit, room, information board, rooming in, admission packet and security measures. Patient verbalizes understanding.
--- NOTE | 2020-01-21 08:30 | PC.NURSE ---
Consulted with patient, Mother reports infant eagerly fed for first feeding. She was unable to latch without assist. Reviewed infant feeding cues, frequencies, duration of feedings, feeding elimination flow sheet, and signs of adequate intake. Demonstrated stimulation techniques to wake for feeding. Assisted with to breast. Reviewed positioning/alignment in cross cradle, holding breast in U hold and guided asymmetrical latch on. Discussed rational for each. Infant was able to latch correctly. nursed eagerly, with steady draws and occasional swallowing noted. Reviewed signs of a correct latch, effective nursing and suck swallow ratio. Infant was able to maintain latch without discomfort to mother. Nipple care reviewed. Advised to stimulate while feeding to keep awake and nursing effectively for increased intake and to assist with maintaining deep latch. Instructed mother to call out for RN assistance if she is unable to latch for feeding or she has discomfort with nursing. Instructed feeding should be initiated three hours from start of last feeding or if feeding cues are noted before. Mother voiced understanding of information shared.
[2020-01-21] MEDS: MULTIVIT/MIN/PREN/FOL AC/IRON TABLET 1 TAB PO (09:50)
[2020-01-21] MEDS: IBUPROFEN 600 MG TABLET PO ×2 (09:51→16:31)
[2020-01-21 10:01] LABS: Rapid Plasma Reagin Non-Reactive (NonReactive)
[2020-01-21] MEDS: ACETAMINOPHEN 325 MG TABLET 650 MG PO ×2 (12:00→19:30)
--- NOTE | 2020-01-21 13:50 | PC.NURSE ---
Mother called out for assist with waking . Demonstrated stimulation techniques to wake for feeding. Mother states she independently latched last feeding. Reviewed infant feeding cues, frequencies, duration of feedings, feeding elimination flow sheet, and signs of adequate intake. Reviewed positioning/alignment in cross cradle, holding breast in U hold and guided asymmetrical latch on. Discussed rational for each. Infant was able to latch correctly. Infant nursed eagerly, with steady draws and occasional swallowing noted. Reviewed signs of a correct latch, effective nursing and suck swallow ratio. Infant was able to maintain latch without discomfort to mother. Nipple care reviewed. Advised to stimulate while feeding to keep awake and nursing effectively for increased intake and to assist with maintaining deep latch. Instructed mother to call out for RN assistance if she is unable to latch infant for feeding or she has discomfort with nursing. Instructed feeding should be initiated three hours from start of last feeding or if feeding cues are noted before. Mother voiced understanding of information shared
[2020-01-22] MEDS: IBUPROFEN 600 MG TABLET PO (04:40)
[2020-01-22 06:01] LABS: Hematocrit 29.9 % (37.0-47.0); Hemoglobin 9.5 g/dL (12.0-15.0)
--- NOTE | 2020-01-22 07:40 | WPDANLDPN2 ---
Anes-Prog Note L&D Date/Time: 01/22/20 07:40 Comfortable throughout: labor and delivery Neuraxial method: epidural Epidural/Spinal procedure site: clean & non-tender Neuro status: Neuro function grossly intact. Cardiovascular status: normal Respiratory status: normal Airway patency: baseline Mental status: baseline Post-Op hydration status: normal Vital Signs: Last Vital Signs Temp 36.8 C 01/21/20 19:18 Pulse 71 01/21/20 19:18 Resp 16 01/21/20 19:18 BP 120/83 01/21/20 19:18 Pulse Ox 98 01/21/20 05:48 Post-procedural complaints: none Patient feedback: Patient satisfied with anesthetic care.
[2020-01-22 08:48] VITALS: BP 113/74; PULSE 77; RESP 16; TEMP 36.4; O2SAT 99
[2020-01-22] MEDS: DOCUSATE SODIUM 100 MG CAPSULE PO (08:48)
[2020-01-22] MEDS: MULTIVIT/MIN/PREN/FOL AC/IRON TABLET 1 TAB PO (08:48)
--- NOTE | 2020-01-22 11:41 | PM.OBPNVD ---
OB - PN: Subj Subjective Date/time seen: 01/22/20 11:41 S: doing well no complaints OB - PN: Obj Data Labs CBC & Chem 7: 01/22/20 04:45 01/21/20 00:21 Labs: Laboratory Results - last 24 hr 01/22/20 04:45 Hgb 9.5 L Hct 29.9 L OB - PN A/P Assessment and Plan (1) (normal spontaneous vaginal delivery): Code(s): O80 - Encounter for full-term uncomplicated delivery Status: Acute Assessment and Plan: s/p d/c home Time Spent With Patient Time: Total time spent is greater than 50% in coordination of care (as documented) at patient's floor/unit and/or counseling patient: Exam GI: Other: ff fundus at umbilicus
[2020-01-22] MEDS: ACETAMINOPHEN 325 MG TABLET 650 MG PO (12:20)
[2020-01-25 11:09] VITALS: BP 128/81; PULSE 80; RESP 16; TEMP 37.1; O2SAT 99
== END 2020-01-22 15:03 | disposition home or self-care (01) | DRG 807 ==
LOC: ANHLDR 01-21 04:10 → ANHOB2 01-22 12:56 → ANHLDR 01-25 11:05 → ANHOB2 01-25 11:05
PROVIDERS: Admitting Provider Obstetrics & Gynecology Gynecology; Visit Provider Obstetrics & Gynecology
DX: O69.81X0 Labor and delivery complicated by cord around neck, without compression, not applicable or unspecified (principal); Z37.0 Single live birth; Z3A.37 37 weeks gestation of pregnancy; O70.1 Second degree perineal laceration during delivery; O99.214 Obesity complicating childbirth; E66.9 Obesity, unspecified
CPT/HCPCS: 36415; 80053; 84550; 85014; 85018; 85025; 86592; 86850; 86900; 86901; A9270; J2590; J2795; J3010; J7120

== ENCOUNTER 2020-09-04 11:26 | Emergency (ER) | payer OTHER, SELFPAY ==
[2020-09-04] VITALS (12 sets, daily range): BP systolic 113–139; BP diastolic 66–82; PULSE 78–95; RESP 18–20; TEMP 36.3–36.7; O2SAT 99–100
--- NOTE | ~2020-09-04 | US_ITS ---
US OB <= 14 weeks fetus DATE: 09/04/2020 17:34 INDICATION: Epigastric abdominal pain TECHNIQUE: Real-time imaging and Doppler analysis COMPARISON: None FINDINGS: The uterus measures 9.6 cm height, 5.8 cm anteroposterior and 6.4 cm transverse dimension. Normally shaped gestational sac with normal surrounding hyperechogenicity consistent with decidual re action. Yolk sac and pole are identified. heart rate 160 bpm. Donalds-rump length average is 0.31 cm, consistent with estimated gestational age of 5 weeks 6 days +/- 4 days; ARTEMIO is 05/01/2021. The right ovary measures 2.0 x 2.9 x 1.9 cm. Left ovary measures 2.0 x 2.1 x 2.7 cm. 1.6 x 1.9 cm corpus luteum cyst. No free pelvic fluid collection is evident. IMPRESSION: Estimated gestational age of 5 weeks 6 days +/- 4 days; ARTEMIO 05/01/2021 Reviewed, dictated and finalized at [facility]. Reviewed, dictated and finalized at location A. IMPRESSION: Estimated gestational age of 5 weeks 6 days +/- 4 days; ARTEMIO 05/01/20 21
--- NOTE | ~2020-09-04 | XR_ITS ---
EXAMINATION: XR chest 2V DATE: 09/04/2020 16:29 INDICATION: Midsternal chest pain TECHNIQUE: PA and lateral views of the chest are obtained. COMPARISON: None available FINDINGS: The lungs are free of acute opacities. There is no pleural effusion or pneumothorax. The ca rdiomediastinal silhouette is normal. The visualized bones and soft tissues are unremarkable. IMPRESSION: 1. No acute cardiopulmonary abnormality. Reviewed, dictated and finalized at location B.
[2020-09-04 12:56] LABS: Basophils Percent Auto 0.3 % (0.2-1.2); Eosinophils Absolute Auto 0.1 K/mm3 (0-0.3); Eosinophils Percent Auto 0.8 % (0-4.4); Hemoglobin 12.3 g/dL (12.0-15.0); Immature Granulocyte Absolute 0.01 K/mm3 (0.00-0.031); Immature Granulocyte Percent A 0.2 % (0-0.5); Lymphocytes Absolute Auto 0.94 K/mm3 (0.9-3.2); Lymphocytes Percent Auto 14.9 % (18.3-44.2); Mean Corpuscular HGB Conc 33.2 g/dl (32-36); Mean Corpuscular Hemoglobin 27.9 pg (26-34); Mean Corpuscular Volume 83.9 fl (80-100); Mean Platelet Volume 9.8 fl (7.4-10.4); Monocytes Absolute Auto 0.5 K/mm3 (0.1-0.6); Monocytes Percent Auto 7.6 % (2.6-8.5); Neutrophils Absolute Auto 4.8 K/mm3 (1.3-6.7); Neutrophils Percent Auto 76.2 % (45.5-73.1); Platelet Count Result 253 k/mm3 (150-375); Red Blood Count 4.41 M/mm3 (4.2-5.4); Red Cell Distribution Width 12.6 % (11.5-14.5); White Blood Count 6.3 K/mm3 (4.5-10.0)
[2020-09-04 13:10] LABS: Add Urine Microscopic? YES; Appearance Urine Cloudy (Clear); Bilirubin Urine Negative (Negative); Blood Urine Negative (Negative); Color Urine Yellow (Yellow); Glucose Urine UA Negative (Negative); Ketones Urine Negative (Negative); Leukocyte Esterase Ur Trace LEU/UL (Negative); Nitrate Urine Negative (Negative); Protein Urine 2+ mg/dL (Negative)
[2020-09-04 13:12] LABS: Specific Grav Ur 1.031 (1.001-1.035)
[2020-09-04 13:13] LABS: Alanine Aminotransferase 28 U/L (4-35); Albumin Level 4.6 g/dL (3.5-5.1); Alkaline Phosphatase 54 U/L (38-126); Anion Gap 5 mmol/L (8-16); Aspartate Amino Transferase 21 U/L (14-36); Bilirubin,Total 0.8 mg/dL (0.2-1.3); Blood Urea Nitrogen 10 mg/dL (7-17); Calcium 8.9 mg/dL (8.4-10.2); Carbon Dioxide 27 mmol/L (22-30); Chloride 104 mmol/L (98-107); Estimated CRCL calculation 155 ml/min; Estimated Glomerular Filt Rate > 60; Glucose 97 mg/dL (65-105); Lipase 24 U/L (23-300); Sodium 136 mmol/L (137-145)
[2020-09-04 13:21] LABS: Bacteria Urine 2+ /hpf; Squamous Epithelial Cell Urine Few /hpf (Few)
--- NOTE | 2020-09-04 15:50 | ECG_ITS ---
Measurements Intervals [place] Rate: 81 P: 23 [place]: 136 QRS: 38 QRSD: 86 T: 28 QT: 370 QTc: 430 Interpretive Statements SINUS RHYTHM BASELINE ARTIFACT- I, III, AVR, AVL, AVF, V1-V2 NORMAL ECG Electronically Signed On 09-05-2020 12:02:41 CDT by Luiz Horton D.O.
[2020-09-04] MEDS: FAMOTIDINE 20 MG/2 ML VIAL IV PUSH (16:08)
[2020-09-04 16:13] LABS: Beta HCG Quantitative > 15000.00 mIU/ML
--- NOTE | 2020-09-04 16:23 | ED.ABDPAIN ---
HPI - Abdominal Pain General Chief Complaint: Abdominal Pain Stated Complaint: abd pain/early pregant Time Seen by Provider: 09/04/20 15:24 Source: patient Mode of arrival: ambulatory Limitations: no limitations History of Present Illness HPI narrative: This is a 20-year-old , currently but unsure of exact LMP, presents with upper abdominal discomfort x 4 days. Reports the pain is intermittent. No known alleviating or exacerbating factors. The pain is cramping and burning in nature. Radiates into the chest. She has not had an US yet this . Reports her OB is Dr. Nicolas. She has an US planned for next week. Denies fever, cough, shortness of breath, or vomiting. Related Data Home Medications Medication Instructions Recorded Confirmed PNV cmb#95-ferrous fumarate-FA 1 tablet PO DAILY 10/29/19 01/21/20 [] ergocalciferol (vitamin D2) 50,000 unit PO WEEKLY 01/20/20 01/21/20 ferrous sulfate 134 mg PO DAILY 01/20/20 01/21/20 Allergies Allergy/AdvReac Type Severity Reaction Status Date / Time No Known Allergies Allergy Unknown Verified 09/01/19 05:11 Review of Systems Review of Systems: Narrative: CONSTITUTIONAL: Denies fever CARDIOVASCULAR: Reports chest pain. Denies edema. RESPIRATORY: Denies cough or dyspnea. GASTROINTESTINAL: Reports abdominal pain. Denies nausea, vomiting GENITOURINARY: Denies dysuria All systems reviewed & are unremarkable except as noted in HPI and below PMFSH Past Medical History Medical History (Updated 09/04/20 @ 19:00 by Vani Brewer PA-C) No pertinent past medical history Round ligament pain Surgical History Surgical History No pertinent past surgical history Social History Social History Social History: Non-smoker Smoking status: Never smoker Substance use: never Spiritual care concerns: No Exam Narrative: Exam Narrative: GENERAL: Well-appearing, well-nourished, and in no acute distress. HEAD: Normocephalic, atraumatic. EYES: EOMI. CHEST: Clear to auscultation. No respiratory distress. No wheezes rales or rhonchi HEART: Regular rate and rhythm. No murmur heard. Normal peripheral pulses. ABDOMEN: Soft, nontender, nondistended, normal active bowel sounds. EXTREMITIES: Normal range of motion. No edema. SKIN: Warm, dry, no rash. NEURO: No focal deficits. Alert and oriented x3. PSYCH: Normal mood and affect Course Consultations Consultation #1: Spoke with Dr. Nicolas about patient and work-up who reports patient may take Pepcid as needed and is to follow-up in clinic at her scheduled appointment. Date: 09/04/20 Time: 18:58 Vital Signs Vital signs: Vital Signs Temperature 97.3 F L 09/04/20 12:41 Pulse Rate 95 09/04/20 12:41 Respiratory Rate 18 09/04/20 12:41 Blood Pressure 125/71 09/04/20 12:41 Pulse Oximetry 100 09/04/20 12:41 Temperature 98.0 F 09/04/20 15:16 Pulse Rate 89 09/04/20 15:16 Respiratory Rate 20 09/04/20 15:16 Blood Pressure 113/66 09/04/20 16:46 Pulse Oximetry 100 09/04/20 16:01 MDM - Abdominal Pain MDM Narrative Medical decision making narrative: Patient presents the emergency department for upper abdominal discomfort present over the last couple of days. She is afebrile and nontoxic-appearing. Reports relief of pain with Tylenol and Pepcid. CBC and metabolic panel without concerning findings. Lipase is normal. Chest x-ray without concerning findings. Patient is , was unsure of exact last menstrual period. Has her first OB appointment next week. Obstetrics ultrasound today shows IUP with estimated gestational age of 5 weeks and 6 days with heart rate of 160. Patient was updated on case findings. Spoke with Dr. Nicolas about patient and work-up who reports patient may take Pepcid as needed and is to follow-up in clinic at her scheduled appointment. She is stable a
[2020-09-04 18:11] LABS: INR 1.1; Prothrombin Time 14.5 Seconds (11.1-14.7)
[2020-09-04 18:12] LABS: Partial Thromboplastin Time 29.2 SECONDS (22.3-36.8)
[2020-09-04 18:22] LABS: Troponin I < 0.012 ng/mL (0.000-0.034)
== END 2020-09-04 19:13 | disposition home or self-care (01) ==
PROVIDERS: Emergency Medicine; Physician Assistant; Emergency Provider Emergency Medicine
DX: O99.611 Diseases of the digestive system complicating pregnancy, first trimester (principal); K21.9 Gastro-esophageal reflux disease without esophagitis; Z3A.01 Less than 8 weeks gestation of pregnancy
CPT/HCPCS: 36415; 71046; 76801; 80053; 81001; 83690; 84484; 84702; 85025; 85610; 85730; 87086; 93005; 96365; 96375; 99284; J0131

== ENCOUNTER 2020-11-27 14:15 | Observation (INO) | payer OTHER, SELFPAY ==
--- NOTE | 2020-11-27 14:15 | OBADM ---
This patient, Becky Tao, admitted to the OB room OB Post 117 for observation. Patient/family oriented to hospital policies and general routines including ID bracelet, bed and alarms, visiting hours, pain management, procedures, bathroom and other care routines, personal items, smoking policy, room service/diet, and visiting hours. Patient/Family are encouraged to report perceived risks to care and to ask questions if they do not understand what they are told or what they should do.
[2020-11-27 14:30] VITALS: BP 112/73; PULSE 95
[2020-11-27 14:50] VITALS: BMI 39.4
[2020-11-27 14:52] LABS: Add Urine Microscopic? YES; Appearance Urine Cloudy (Clear); Bacteria Urine Trace /hpf; Bilirubin Urine Negative (Negative); Blood Urine Negative (Negative); Color Urine Yellow (Yellow); Glucose Urine UA Negative (Negative); Ketones Urine Negative (Negative); Leukocyte Esterase Ur Negative LEU/UL (Negative); Mucus Urine Moderate /lpf; Nitrate Urine Negative (Negative); Protein Urine 1+ mg/dL (Negative); RBC Urine 0-2 /hpf (0-2); Specific Grav Ur 1.027 (1.001-1.035); Squamous Epithelial Cell Urine Moderate /hpf (Few); Urobilinogen Urine Negative mg/dL (<2.0); WBC Urine 0-3 /hpf
--- NOTE | 2020-11-27 14:59 | PC.NURSE ---
Updated Dr. Nicolas with UA results and maternal/ assessment. Discharge orders received. Patient to call office for follow-up.
--- NOTE | 2020-11-30 07:17 | P.PNOB_ITS ---
OB - Triage/Final Diagnosis Visit Information Reason for evaluation: other (swelling and dizziness) Comments/Additional reasons for admission: I have assessed the risk for this patient, Becky Tao, and determined that she would benefit from observation care. Evaluation Laboratory results: Laboratory Tests 11/27/20 14:42 Urine Color Yellow Urine Appearance Cloudy H Urine pH 6.0 Ur Specific [place] 1.027 Urine Protein 1+ H Urine Glucose (UA) Negative Urine Ketones Negative Ur Blood (Man) Negative Urine Nitrate Negative Urine Bilirubin Negative Urine Urobilinogen Negative Leukocyte Esterase Rfl Negative Urine RBC 0-2 Urine WBC 0-3 Ur Squamous Epith Cells Moderate H Urine Bacteria Trace Urine Mucus Moderate H
== END 2020-11-27 15:10 | disposition home or self-care (01) ==
PROVIDERS: Admitting Provider Obstetrics & Gynecology Gynecology; Visit Provider Obstetrics & Gynecology Gynecology
DX: O26.892 Other specified pregnancy related conditions, second trimester (principal); R42 Dizziness and giddiness; Z3A.17 17 weeks gestation of pregnancy
CPT/HCPCS: 81001; G0378; G0379

== ENCOUNTER 2020-12-06 13:39 | Outpatient (CLI) | payer OTHER, SELFPAY ==
--- NOTE | ~2020-12-06 | US_ITS ---
EXAMINATION: US OB /maternal detail EXAM DATE: 12/06/2020 14:34 INDICATION: OB anatomy. 2nd trimester. TECHNIQUE: Pelvic obstetrical transabdominal sonogram was performed by a technologist. There are mu ltiple grayscale and Doppler images available for interpretation. Comparison is made to prior examina tion from 09/04/2020. FINDINGS: There is a single fetus identified in vertex presentation with a heart rate of 149 beats pe r minute. The placenta is located in the anterior fundal position. There is no sonographic evidence of retroplacental hemorrhage identified. The amniotic fluid index is 14.8 centimeters, which is alexandra l. BIOMETRIC DATA: Biparietal diameter (BPD): 4.8 cm ----------------> 20 weeks 3 days. Head circumference (HC): 18.4 cm ----------------> 20 weeks 5 days. Abdominal circumference (AC): 15.6 cm ----------> 20 weeks 5 days. Femur length (FL): 3.2 cm --------------------------> 20 weeks 0 days. These measurements are concordant. HC/AC ratio is 1.18 (The 5th -- 95th percentile range is 1.07-1.25. Estimated weight is 356 g +/- 54 g. This is the greater than 97th percentile when the currentl y reported clinical gestation age 19 weeks 1 day, clinical estimated date of delivery (ARTEMIO-OPE) 2020 is used. estimated gestational age based on measurements from this exam is 20 weeks 3 days , with an estimated date of delivery (ARTEMIO-AUA) 04/22. ANATOMIC SURVEY: The following anatomy is identified and is sonographically normal in appearance: Cerebral ventricles Cerebellum Cisterna magna Nuchal fold CTL-spine Four-chamber heart Diaphragm Stomach Kidneys Bladder Three-vessel cord Cord insertion Extremities Nose lips IMPRESSION: 1. Single fetus in vertex presentation with heart rate 149 beats per minute. 2. Estimated weight of 356 grams, greater than 97th percentile using the currently reported cl inical gestation age of 19 weeks 1 day, ARTEMIO(OPE) 05/01/2021. 3. Normal anatomic survey. 4. Normal JAZZY 14.8 cm. Reviewed, dictated and finalized at location B. IMPRESSION: 1. Single fetus in vertex presentation with heart rate 149 beats per minute. 2. Estimated weight of 356 grams, greater than 97th percentile using the currently reported clinical gestation age of 19 weeks 1 day, ARTEMIO(OPE) 1. 3. Normal anatomic survey. 4. Normal JAZZY 14.8 cm.
== END 2020-12-06 13:40 | disposition home or self-care (01) ==
PROVIDERS: Visit Provider Obstetrics & Gynecology Gynecology
DX: Z36.9 Encounter for antenatal screening, unspecified (principal); Z3A.19 19 weeks gestation of pregnancy
CPT/HCPCS: 76805

== ENCOUNTER 2020-12-13 07:17 | Outpatient (CLI) | payer OTHER, SELFPAY ==
[2020-12-13 07:57] LABS: Glucose 2 Hour PP 92 mg/dL (>=155)
[2020-12-13 09:44] LABS: Glucose 2 Hour PP 126 mg/dL (>=155)
[2020-12-13 11:06] LABS: Glucose 2 Hour PP 111 mg/dL (>=155)
== END 2020-12-13 07:18 | disposition home or self-care (01) ==
PROVIDERS: Visit Provider Obstetrics & Gynecology Gynecology
DX: O36.62X0 Maternal care for excessive fetal growth, second trimester, not applicable or unspecified (principal); Z3A.00 Weeks of gestation of pregnancy not specified
CPT/HCPCS: 36415; 82947

== ENCOUNTER 2021-01-03 12:41 | Outpatient (CLI) | payer OTHER, SELFPAY ==
--- NOTE | ~2021-01-03 | US_ITS ---
EXAMINATION: US OB follow up DATE: 01/03/2021 13:11 INDICATION: Size greater than dates during second trimester TECHNIQUE: Real-time ultrasound of the pelvis was performed. The interpreting radiologist was not pre sent for the study. COMPARISON: None. FINDINGS: There is a single living fetus in vertex presentation. The placenta is anterior/fundal. Fet al cardiac activity and movement are noted. heart rate is 148 beats per minute (bpm). The amniotic fluid index is 23.2 cm (normal range: 9.8 cm to 21.8 cm). The following biometric data were obtained: Biparietal diameter (BPD): 6.3 cm; head circumference (HC): 23.0 cm; abdominal circumference (AC): 20 .8 cm; femur length (FL): 4.4 cm. The femoral length to biparietal diameter ratio is greater than two standard deviations below the chu n. These measurements are otherwise concordant. Estimated weight is 778 g +/- 116 g, which correlates with the >97th percentile when 05/01/2021 is used as estimated date of delivery. As single measurements, these parameters are each equal to the following estimated gestational ages w ith ranges of +/- 2 standard deviations: BPD: 25 weeks 5 days +/- 2 weeks 1 days. HC: 25 weeks 1 days +/- 2 weeks 0 days. AC: 25 weeks 3 days +/- 2 weeks 1 days. FL: 24 weeks 5 days +/- 2 weeks 1 days. estimated gestational age based solely on measurements from this exam is 25 weeks 2 days +/- 1 weeks 5 days. IMPRESSION: 1. Single living fetus in vertex presentation. 2. Polyhydramnios. 3. Estimated weight is 778 g +/- 116 g, which correlates with the >97th percentile when 05/01/20 21 is used as estimated date of delivery. 4. Femoral length to biparietal diameter ratio greater than two standard deviations below the mean. Reviewed, dictated and finalized at location B. IMPRESSION: 1. Single living fetus in vertex presentation. 2. Polyhydramnios. 3. Estimated weight is 778 g +/- 116 g, which correlates with the >97th p ercentile when 05/01/2021 is used as estimated date of delivery. 4. Femoral length to biparietal diameter ratio greater than two standard deviat ions below the mean.
== END 2021-01-03 12:42 | disposition home or self-care (01) ==
LOC: ANHIMG 12:45
PROVIDERS: Visit Provider Obstetrics & Gynecology Gynecology
DX: Z34.92 Encounter for supervision of normal pregnancy, unspecified, second trimester (principal); Z3A.25 25 weeks gestation of pregnancy
CPT/HCPCS: 76816

== ENCOUNTER 2021-02-06 08:48 | Outpatient (CLI) | payer OTHER, SELFPAY ==
[2021-02-06 09:22] LABS: Hematocrit 33.9 % (37.0-47.0); Hemoglobin 10.9 g/dL (12.0-15.0)
[2021-02-06 10:14] LABS: HIV 1/2 Ab P24 Ag Result Negative (Negative)
[2021-02-06 10:29] LABS: Vitamin D 25 Hydroxy 30.5 ng/mL
== END 2021-02-06 08:49 | disposition home or self-care (01) ==
PROVIDERS: Visit Provider Obstetrics & Gynecology Gynecology
DX: Z34.93 Encounter for supervision of normal pregnancy, unspecified, third trimester (principal); Z3A.25 25 weeks gestation of pregnancy
CPT/HCPCS: 36415; 82306; 85014; 85018; 86703; G0432

== ENCOUNTER 2021-03-11 17:35 | Observation (INO) | payer OTHER, SELFPAY ==
[2021-03-11] VITALS (9 sets, daily range): BP systolic 122–136; BP diastolic 66–83; PULSE 76–98; BMI 40.9
[2021-03-11] MEDS: NIFEdipine 10 MG CAPSULE PO ×2 (21:05→22:41)
[2021-03-11 21:08] LABS: Add Urine Microscopic? NO; Appearance Urine Clear (Clear); Bilirubin Urine Negative (Negative); Blood Urine Negative (Negative); Color Urine Straw (Yellow); Glucose Urine UA Negative (Negative); Ketones Urine Negative (Negative); Leukocyte Esterase Ur Negative LEU/UL (Negative); Nitrate Urine Negative (Negative); Protein Urine Negative (Negative); Specific Grav Ur 1.005 (1.001-1.035); Urobilinogen Urine Negative mg/dL (<2.0)
--- NOTE | 2021-03-11 21:15 | PC.NURSE ---
1927- paged Dr. Dia- 1929- Dr. Dia responded to page. informed that pt came in this evening for NST. contractions noted on monitor every 4-6 minutes- none felt by pt. FHT reviewed as decel noted on monitor. order received to continue to monitor for 30 more minutes and po hydrate. if no further contractions pt may d/c home. will continue to monitor and call with questions/concerns.
--- NOTE | 2021-03-11 21:20 | PC.NURSE ---
2016- Dr. Dia paged 2026- Dr. Dia responded to page. FHT reviewed. contractions noted every 4-6 minutes. pt not feeling any contractions just baby movement. order received for UA, pt needs to eat, and give procardia 10mg po for contractions. will continue to monitor and call with results of UA or sooner if needed.
--- NOTE | 2021-03-11 21:25 | PC.NURSE ---
pt checked blood sugar with her meter. BS at [phone]
--- NOTE | 2021-03-12 02:46 | PC.NURSE ---
2201- paged Dr. Dia 2202- Dr. Dia responded to page- tracing reviewed. pt still having contractions on the monitor but not feeling anything. no intercourse x couple months due to pain and pressure in vagina. pt has not been sick recently. order received for FFN, SVE, procardia 10mg PO, and po hydrate. if cervix closed or 1 will not send FFN, if cervix 2cm or more will send FFN. will continue to monitor and call if questions/concerns.
--- NOTE | 2021-03-12 02:51 | PC.NURSE ---
2220- SVE- closed, thick, soft cevix.
--- NOTE | 2021-03-12 02:53 | PC.NURSE ---
7621- Dr. Dia paged [phone]- Dr. Dia responded to page. reviewed cervical exam. will not send FFN due to cervix being closed. contractions spacing out on monitor. pt still not feeling contractions. order received to d/c pt home with RX for procardia 10mg q 6 hours #20. pt to call office in am to make f/u appt. instructions on when to return to L&D or call Dr. Nicolas's office. Dr. Dia informed of pt c/o increased vaginal d/c and very painful vagina. Will have pt f/u in office with Dr. Nicolas.
--- NOTE | 2021-03-14 09:56 | PM.OBTRLD ---
OB - Triage/Final Diagnosis Visit Information Comments/Additional reasons for admission: I have assessed the risk for this patient, Becky Tao, and determined that she would benefit from observation care. Evaluation Laboratory results: Laboratory Tests 03/11/21 21:00 Urine Color Straw Urine Appearance Clear Urine pH 8.0 Ur Specific [place] 1.005 Urine Protein Negative Urine Glucose (UA) Negative Urine Ketones Negative Ur Blood (Man) Negative Urine Nitrate Negative Urine Bilirubin Negative Urine Urobilinogen Negative Leukocyte Esterase Rfl Negative Final Diagnosis (1) contractions: Code(s): O47.00 - False labor before 37 completed weeks of gestation, unspecified trimester Status: Acute
== END 2021-03-11 23:18 | disposition home or self-care (01) ==
PROVIDERS: Admitting Provider Obstetrics & Gynecology; Visit Provider Obstetrics & Gynecology
DX: O47.03 False labor before 37 completed weeks of gestation, third trimester (principal); Z3A.32 32 weeks gestation of pregnancy
CPT/HCPCS: 81003; A9270; G0378; G0379

== ENCOUNTER 2021-03-16 17:42 | Observation (INO) | payer OTHER, SELFPAY ==
[2021-03-16 17:57] VITALS: BP 125/69; PULSE 108
[2021-03-16 18:01] VITALS: BP 122/67; PULSE 99; RESP 20; TEMP 36.9
[2021-03-16 18:10] VITALS: BMI 41.1
--- NOTE | 2021-03-16 18:27 | PC.NURSE ---
pt turned to left side for heart tones.
[2021-03-16 18:30] VITALS: TEMP 36.9
[2021-03-16] MEDS: LACTATED RINGERS 1,000 ML 999 ML IV CONT (18:47)
[2021-03-16] MEDS: ONDANSETRON INJ 4 MG/2 ML VIAL IV PUSH (18:47)
[2021-03-16] MEDS: NIFEdipine 10 MG CAPSULE PO (18:47)
[2021-03-16 19:18] LABS: Add Urine Microscopic? YES; Appearance Urine Cloudy (Clear); Bacteria Urine Trace /hpf; Bilirubin Urine Negative (Negative); Blood Urine Negative (Negative); Color Urine Amber (Yellow); Glucose Urine UA Negative (Negative); Ketones Urine 2+ mg/dL (Negative); Leukocyte Esterase Ur Negative LEU/UL (Negative); Mucus Urine Heavy /lpf; Nitrate Urine Negative (Negative); Protein Urine 1+ mg/dL (Negative); Specific Grav Ur 1.028 (1.001-1.035); Squamous Epithelial Cell Urine Moderate /hpf (Few)
[2021-03-16] MEDS: LACTATED RINGERS 1,000 ML 250 ML IV CONT (20:31)
[2021-03-16 22:29] LABS: Glucose Point of Care 111 mg/dl (65-105)
--- NOTE | 2021-03-26 09:28 | P.PNOB_ITS ---
OB - Triage/Final Diagnosis Visit Information Reason for evaluation: threatened labor Comments/Additional reasons for admission: I have assessed the risk for this patient, Becky Tao, and determined that she would benefit from observation care. Evaluation Laboratory results: Laboratory Tests 03/16/21 03/16/21 18:47 22:24 POC Capillary Glucose 111 H Urine Color [place] Urine Appearance Cloudy H Urine pH 5.0 Ur Specific [place] 1.028 Urine Protein 1+ H Urine Glucose (UA) Negative Urine Ketones 2+ H Ur Blood (Man) Negative Urine Nitrate Negative Urine Bilirubin Negative Urine Urobilinogen 2.0 H Leukocyte Esterase Rfl Negative Urine RBC 6-10 H Urine WBC 7-9 H Ur Squamous Epith Cells Moderate H Urine Bacteria Trace Urine Mucus Heavy H
== END 2021-03-16 22:53 | disposition home or self-care (01) ==
PROVIDERS: Admitting Provider Obstetrics & Gynecology Gynecology; Visit Provider Obstetrics & Gynecology Gynecology
DX: O47.03 False labor before 37 completed weeks of gestation, third trimester (principal); Z3A.33 33 weeks gestation of pregnancy
CPT/HCPCS: 81001; 82948; 87086; 96361; 96374; A9270; G0378; G0379; J2405; J7120

== ENCOUNTER 2021-04-06 14:08 | Observation (INO) | payer OTHER, SELFPAY ==
--- NOTE | 2021-04-06 15:00 | OBADM ---
This patient, Becky Tao, admitted to the OB room OB Post 116 for observation. Patient oriented to hospital policies and general routines including ID bracelet, bed and alarms, visiting hours, pain management, procedures, bathroom and other care routine, call light and visiting hours. Patient is encouraged to report perceived risks to care and to ask questions if she does not understand what she is told or what she should do.
--- NOTE | 2021-04-06 15:15 | PC.NURSE ---
1431 - SVE 2/ 50%/floating unchanged from SVE in office yesterday. Explained unchanged SVE to pt. Pt states she is measuring 40 weeks. Discussed polyhydramnios note on her record. Pt became upset and stated her fluid levels are normal if I would call the Dr she would tell me. took monitors off of her belly, BP cuff off her arm, and asked RN to leave the room. 1440 - RN called Dr. Nicolas and discussed pt admission for contractions, unchanged SVE, the discussion regarding fluid levels. Dr. Nicolas confirms that fluid levels were normal 04/05/2021. Informed the Dr. that the patient was upset. 1447 - RN went to knock on the patient door to ask permission to come into the room to discuss POC to go home and reasons to return to the hospital or call the Dr and found the room empty. Dr. Nicolas notified that patient left the hospital without discharge instructions.
--- NOTE | 2021-04-13 14:50 | PM.OBTRLD ---
OB - Triage/Final Diagnosis Visit Information Reason for evaluation: threatened labor Comments/Additional reasons for admission: I have assessed the risk for this patient, Becky Tao, and determined that she would benefit from observation care.
== END 2021-04-06 14:45 | disposition left against medical advice (07) ==
LOC: ANHOBPP 14:47
PROVIDERS: Admitting Provider Obstetrics & Gynecology Gynecology; Visit Provider Obstetrics & Gynecology Gynecology
DX: O47.03 False labor before 37 completed weeks of gestation, third trimester (principal); Z3A.36 36 weeks gestation of pregnancy
CPT/HCPCS: 59025; G0378; G0379

== ENCOUNTER 2021-04-08 08:30 | Outpatient (RCR) | payer OTHER, SELFPAY ==
[2021-03-18 13:01] VITALS: BP 119/67; PULSE 96
[2021-03-25 12:37] VITALS: BP 123/72; PULSE 86
[2021-04-01 13:27] VITALS: BP 135/86; PULSE 85
--- NOTE | ~2021-04-08 | US_ITS ---
EXAMINATION: US OB limited w BPP EXAM DATE: 03/25/2021 12:11 INDICATION: JAZZY; Gestational Diabetes . 3rd trimester. TECHNIQUE: Pelvic obstetrical transabdominal sonogram was performed by a technologist. There are mu ltiple grayscale and Doppler images available for interpretation. Comparison is made to prior examina tion from 01/03/2021. FINDINGS: There is a single fetus identified in vertex presentation with a heart rate of 147 beats pe r minute. The placenta is located in the anterior position. There is no sonographic evidence of retr oplacental hemorrhage identified. The amniotic fluid index is 9.9 centimeters, which is normal. The 5 th -- 95th percentile range for 34 weeks gestation age is 8.1-24.8 cm, and 35 weeks gestational age i s 7.9-24.9 cm. BIOPHYSICAL PROFILE (performed by the technologist) breathing (30 sec sustained breathing in 30 minutes): 2 out of 2 movement (3 gross body movements in 30 minutes): 2 out of 2 tone (one episode of wjlthcp-[id number]-otnrynw limb movement): 2 out of 2 Amniotic fluid pocket (2 cm): 2 out of 2 Total score: 8 out of 8 IMPRESSION: 1. Single fetus with heart rate of 147 bpm. 2. Normal biophysical profile score of 8 out of 8. 3. Normal JAZZY 9.9 cm. Reviewed, dictated and finalized at location A.
[2021-04-08 09:05] VITALS: BP 119/78; PULSE 84
== END 2021-06-07 09:28 | disposition home or self-care (01) ==
LOC: ANHOBOP 08:30
PROVIDERS: Visit Provider Obstetrics & Gynecology Gynecology
DX: O24.419 Gestational diabetes mellitus in pregnancy, unspecified control (principal); Z3A.33 33 weeks gestation of pregnancy; Z3A.34 34 weeks gestation of pregnancy; Z3A.35 35 weeks gestation of pregnancy; Z3A.36 36 weeks gestation of pregnancy
CPT/HCPCS: 59025; 76815; 76819

== ENCOUNTER 2021-04-13 17:44 | Outpatient (CLI) | payer OTHER, SELFPAY ==
[2021-04-13 18:00] VITALS: BP 131/76; PULSE 87
[2021-04-13 18:20] VITALS: BP 120/65; PULSE 96
[2021-04-13 18:23] VITALS: BP 120/65; PULSE 86
[2021-04-13 18:34] LABS: Basophils Percent Auto 0.2 % (0.2-1.2); Eosinophils Percent Auto 0.2 % (0-4.4); Hematocrit 31.5 % (37.0-47.0); Hemoglobin 10.2 g/dL (12.0-15.0); Immature Granulocyte Absolute 0.04 K/mm3 (0.00-0.031); Immature Granulocyte Percent A 0.5 % (0-0.5); Lymphocytes Absolute Auto 1.57 K/mm3 (0.9-3.2); Lymphocytes Percent Auto 18.3 % (18.3-44.2); Mean Corpuscular HGB Conc 32.4 g/dl (32-36); Mean Corpuscular Hemoglobin 26.6 pg (26-34); Mean Platelet Volume 10.8 fl (7.4-10.4); Monocytes Absolute Auto 0.4 K/mm3 (0.1-0.6); Monocytes Percent Auto 4.7 % (2.6-8.5); Neutrophils Absolute Auto 6.5 K/mm3 (1.3-6.7); Neutrophils Percent Auto 76.1 % (45.5-73.1); Platelet Count Result 242 k/mm3 (150-375); Red Blood Count 3.84 M/mm3 (4.2-5.4); Red Cell Distribution Width 14.5 % (11.5-14.5); White Blood Count 8.6 K/mm3 (4.5-10.0)
[2021-04-13 18:43] LABS: Add Urine Microscopic? YES; Amorphous Sediment Urine Few; Appearance Urine Cloudy (Clear); Bacteria Urine Trace /hpf; Bilirubin Urine Negative (Negative); Blood Urine Negative (Negative); Color Urine Yellow (Yellow); Glucose Urine UA Negative (Negative); Ketones Urine Negative (Negative); Leukocyte Esterase Ur Negative LEU/UL (NEGATIVE); Mucus Urine Moderate /lpf; Nitrate Urine Negative (Negative); Protein Urine Negative (Negative); RBC Urine 0-2 /hpf (0-2); Specific Grav Ur 1.023 (1.001-1.035); Squamous Epithelial Cell Urine Occasional /hpf (Few); Urobilinogen Urine Negative mg/dL (<2.0); WBC Urine 0-3 /hpf (0-3)
[2021-04-13 18:45] LABS: Alanine Aminotransferase 16 U/L (4-35); Albumin Level 3.5 g/dL (3.5-5.1); Alkaline Phosphatase 180 U/L (38-126); Anion Gap 6 mmol/L (8-16); Aspartate Amino Transferase 23 U/L (14-36); Bilirubin,Total 0.3 mg/dL (0.2-1.3); Blood Urea Nitrogen 11 mg/dL (7-17); Calcium 9.1 mg/dL (8.4-10.2); Carbon Dioxide 23 mmol/L (22-30); Chloride 104 mmol/L (98-107); Estimated Glomerular Filt Rate > 60; Glucose 129 mg/dL (65-110); Potassium 3.6 mmol/L (3.4-5.0); Sodium 133 mmol/L (137-145); Uric Acid 3.3 mg/dL (2.5-7.5)
[2021-04-13 18:46] LABS: Creatinine Urine 187.2 mg/dL; Total Protein Urine Random 7 mg/dL; Ur Ttl Prot Creatinine Ratio 0.04 mg/mg (0-0.20)
[2021-04-13 19:20] VITALS: BP 120/65; PULSE 96
== END 2021-04-13 19:25 | disposition home or self-care (01) ==
LOC: ANHOBOP 17:47 → ANHOBPP 17:49
PROVIDERS: Obstetrics & Gynecology; Visit Provider Obstetrics & Gynecology Gynecology
DX: O13.9 Gestational [pregnancy-induced] hypertension without significant proteinuria, unspecified trimester (principal); Z3A.00 Weeks of gestation of pregnancy not specified
CPT/HCPCS: 36415; 59025; 80053; 81001; 82570; 84156; 84550; 85025; 87086; 99199

== ENCOUNTER 2021-04-14 11:39 | Inpatient (IN) | payer OTHER, SELFPAY ==
[2021-04-14] VITALS (15 sets, daily range): BP systolic 117–144; BP diastolic 59–99; PULSE 78–100; RESP 18–20; TEMP 36.4–36.8; O2SAT 100; BMI 42.0
[2021-04-14 12:26] LABS: Basophils Percent Auto 0.3 % (0.2-1.2); Eosinophils Percent Auto 0.2 % (0-4.4); Hematocrit 35.3 % (37.0-47.0); Hemoglobin 11.2 g/dL (12.0-15.0); Immature Granulocyte Absolute 0.05 K/mm3 (0.00-0.031); Immature Granulocyte Percent A 0.5 % (0-0.5); Lymphocytes Absolute Auto 1.58 K/mm3 (0.9-3.2); Lymphocytes Percent Auto 14.3 % (18.3-44.2); Mean Corpuscular HGB Conc 31.7 g/dl (32-36); Mean Corpuscular Hemoglobin 25.5 pg (26-34); Mean Corpuscular Volume 80.2 fl (80-100); Mean Platelet Volume 11.1 fl (7.4-10.4); Monocytes Absolute Auto 0.6 K/mm3 (0.1-0.6); Monocytes Percent Auto 5.6 % (2.6-8.5); Neutrophils Absolute Auto 8.8 K/mm3 (1.3-6.7); Neutrophils Percent Auto 79.1 % (45.5-73.1); Platelet Count Result 286 k/mm3 (150-375); Red Cell Distribution Width 14.2 % (11.5-14.5); White Blood Count 11.1 K/mm3 (4.5-10.0)
[2021-04-14] MEDS: IBUPROFEN 600 MG TABLET PO ×2 (13:00→19:02)
--- NOTE | 2021-04-14 13:19 | WPDOBADMIT ---
Obstetrics - Admit Note Admission Note: record reviewed. No pertinent additions to the history and/or any subsequent changes in the physical findings that are not consistent with the expected course of the were found. Patient presented in active Labor cervix complete with bulging bag of membranes. AROM clear fluid. Additions to the history and/or subsequent changes in the physical findings follow. None.
--- NOTE | 2021-04-14 13:19 | PM.OBPRVD ---
OB - Delivery Note Procedure Delivery date: 04/14/21 Procedure: Intrapartal events: None Induction method: none Delivery monitor: external FHT and external uterine Route of delivery: Laceration Description: None Specimen: Yes Quantitative Blood Loss (ml): 50 Anesthesia type: None Disposition: observation [place] Baby Date of : 04/14/21 Time of : 12:20 Weeks of gestation at delivery: 37 gender: Male Weight (pounds): 8 Weight (ounces): 4 presentation: vertex position: Left Occiput Anterior cord vessel description: 3 Vessels, Nuchal Cord, Loose and Around Body x1 score one minute: 9 score five minutes: 9
[2021-04-14] MEDS: LACTATED RINGERS 1,000 ML 125 ML IV CONT (14:10)
[2021-04-14] MEDS: OXYTOCIN 10 UNITS/ML VIAL 30 UNITS IM (14:23)
[2021-04-14] MEDS: OXYTOCIN 10 UNITS/ML VIAL (14:24)
[2021-04-14] MEDS: ACETAMINOPHEN 325 MG TABLET 650 MG PO ×2 (15:18→23:30)
[2021-04-14] MEDS: WITCH HAZEL 40 PADS 1 PAD TOPICAL (15:19)
[2021-04-14] MEDS: BENZOCAINE 20% AER SPR (*SP) 56 GM CAN 1 SPRAY TOPICAL (15:19)
--- NOTE | 2021-04-14 15:24 | PC.NURSE ---
RX note : Oxytocin 125mls/hr infused after RN replaced IV at 1410
--- NOTE | 2021-04-14 15:50 | PC.NURSE ---
Patient transferred to post room #282 via wheelchair. Support person present. Oriented to unit, room, information board, rooming in, admission packet and security measures. Patient verbalizes understanding.
--- NOTE | 2021-04-14 16:21 | LDADM ---
This patient, Becky Tao, was admitted to OB 2nd Floor Room 282 on 04/14/21 at 11:39. Plans for labor, pain management and were discussed with patient. Patient/family oriented to hospital policies and general routines including ID bracelet, bed and alarms, pain management, procedures, bathroom and other care routines, personal items, smoking policy, room service/diet and guest tray routines, security routines, call light and visiting hours. Patient/Family are encouraged to report perceived risks to care and to ask questions if they do not understand what they are told or what they should do. See OBIX for further documentation.
[2021-04-15] MEDS: IBUPROFEN 600 MG TABLET PO ×2 (03:36→13:34)
[2021-04-15 04:34] LABS: Hematocrit 28.4 % (37.0-47.0); Hemoglobin 9.2 g/dL (12.0-15.0)
[2021-04-15] MEDS: POLYSACCHARIDE IRON COMPLEX 150 MG CAPSULE PO ×2 (08:08→16:25)
[2021-04-15] MEDS: ACETAMINOPHEN 325 MG TABLET 650 MG PO ×2 (08:09→16:25)
[2021-04-15] MEDS: DOCUSATE SODIUM 100 MG CAPSULE PO ×2 (08:09→16:25)
[2021-04-15 08:15] VITALS: BP 128/82; PULSE 82; RESP 18; TEMP 36.3; O2SAT 100
--- NOTE | 2021-04-15 11:26 | PM.OBPNVD ---
OB - PN: Subj Subjective Date/time seen: 04/15/21 11:26 doing well no complaints desires home. OB - PN: Obj Data Labs CBC & Chem 7: 04/15/21 03:37 Labs: Laboratory Results - last 24 hr 04/14/21 04/14/21 04/15/21 12:01 12:01 03:37 WBC 11.1 H RBC 4.40 Hgb 11.2 L 9.2 L Hct 35.3 L 28.4 L MCV 80.2 MCH 25.5 L MCHC 31.7 L RDW 14.2 Plt Count 286 MPV 11.1 H Immature Gran % (Auto) 0.5 Neut % (Auto) 79.1 H Lymph % (Auto) 14.3 L [place] % (Auto) 5.6 Eos % (Auto) 0.2 Baso % (Auto) 0.3 Lymph # (Auto) 1.58 [place] # (Auto) 0.6 Eos # (Auto) 0.0 Baso # (Auto) 0.0 Abs Immat Gran (auto) 0.05 H Absolute Neuts (auto) 8.8 H Absolute Nucleated RBC 0.0 Nucleated RBC % 0.0 Blood Type O Positive Antibody Screen Negative OB - PN A/P Assessment and Plan (1) 37 weeks gestation of : Code(s): Z3A.37 - 37 weeks gestation of Status: Acute (2) (normal spontaneous vaginal delivery): Code(s): O80 - Encounter for full-term uncomplicated delivery Status: Acute Assessment and Plan: d/c home Time Spent With Patient Time: Total time spent is greater than 50% in coordination of care (as documented) at patient's floor/unit and/or counseling patient: Exam GI: Other: ff below umbilicus
--- NOTE | 2021-04-15 11:29 | P.DS_ITS ---
DS: Admitting Diagnosis Discharge Date 04/15/21 Admitting Diagnosis labor OB - DS: Summary OB Procedures : None, NST and Ultrasound OB Procedures Intrapartum: Spontaneous Vag Delivery OB Procedures: : None and Other Time Spent with Patient Time attestation: Total time spent providing and/or coordinating discharge services: DS: Data Data Completed and Pending Pending studies at discharge: Pending at discharge 04/14/21 12:23 Surgical [PTH] Routine Labs on day of discharge: Labs from last 24 hours 04/15/21 04/14/21 04/14/21 03:37 12:01 12:01 WBC RBC Hgb 9.2 L Hct 28.4 L MCV MCH MCHC RDW Plt Count MPV Immature Gran % (Auto) Neut % (Auto) Lymph % (Auto) [place] % (Auto) Eos % (Auto) Baso % (Auto) Lymph # (Auto) [place] # (Auto) Eos # (Auto) Baso # (Auto) Abs Immat Gran (auto) Absolute Neuts (auto) Absolute Nucleated RBC Nucleated RBC % RPR Pending Blood Type O Positive Antibody Screen Negative 04/14/21 12:01 WBC 11.1 H RBC 4.40 Hgb 11.2 L Hct 35.3 L MCV 80.2 MCH 25.5 L MCHC 31.7 L RDW 14.2 Plt Count 286 MPV 11.1 H Immature Gran % (Auto) 0.5 Neut % (Auto) 79.1 H Lymph % (Auto) 14.3 L [place] % (Auto) 5.6 Eos % (Auto) 0.2 Baso % (Auto) 0.3 Lymph # (Auto) 1.58 [place] # (Auto) 0.6 Eos # (Auto) 0.0 Baso # (Auto) 0.0 Abs Immat Gran (auto) 0.05 H Absolute Neuts (auto) 8.8 H Absolute Nucleated RBC 0.0 Nucleated RBC % 0.0 RPR Blood Type Antibody Screen Discharge Plan Discharge Attending physician on discharge: Bean Dia Discharging Clinician: Bean Dia Patient Disposition: Home, Self-Care Activity: may shower and pelvic rest Diet: regular Patient Instructions: Antibiotic Form Stand Alone Forms: General Discharge Information Follow-up/Referrals: Jolie Nicolas MD [Physician] - Discharge Medications: Continued PNV [id number] [] 28 mg iron- 800 mcg Tablet 1 tablet PO DAILY RF: 0 Discontinued Humulin N NPH U-100 Insulin 100 unit/mL suspension 24 unit SUBCUT HS RF: 0 Date of admission: 04/14/21 11:39 Primary Care Provider: PHYSICIAN,DIGITAL MEDIA BUYER Admitting Provider: Bean Dia Attending physician on admission: Bean Dia Condition: Stable
[2021-04-15 12:15] VITALS: BP 120/78; PULSE 92; RESP 16; TEMP 36.8; O2SAT 99
--- NOTE | 2021-04-15 17:14 | PC.NURSE ---
Patient instructed on viewing the discharge video Mother & Baby Care, The First Two Weeks . Patient was given the opportunity and encouraged to ask questions. Patient verbalized understanding of information shared and has been given the mother/baby guide for home reference.
[2021-04-16 06:11] LABS: Rapid Plasma Reagin Non-Reactive (NonReactive)
[2021-04-16 09:05] VITALS: BP 128/78; PULSE 80; RESP 20; TEMP 37; O2SAT 98
== END 2021-04-15 18:12 | disposition home or self-care (01) | DRG 560 ==
LOC: ANHLDR 12:54 → ANHOB2 15:55
PROVIDERS: Admitting Provider Obstetrics & Gynecology; Visit Provider Obstetrics & Gynecology
DX: O69.81X0 Labor and delivery complicated by cord around neck, without compression, not applicable or unspecified (principal); O24.424 Gestational diabetes mellitus in childbirth, insulin controlled; O40.3XX0 Polyhydramnios, third trimester, not applicable or unspecified; Z3A.37 37 weeks gestation of pregnancy; Z37.0 Single live birth
CPT/HCPCS: 36415; 85014; 85018; 85025; 86592; 86850; 86900; 86901; 88307; A9270; J2590; J7120

== ENCOUNTER 2021-06-21 08:03 | Outpatient (CLI) | payer OTHER, SELFPAY ==
[2021-06-21 08:54] LABS: Glucose Fasting 95 mg/dL
[2021-06-21 10:37] LABS: Glucose 1 Hour 113 mg/dL
[2021-06-21 11:36] LABS: Glucose 2 Hour 104 mg/dL
[2021-06-21 12:28] LABS: Vitamin D 25 Hydroxy 30.3 ng/mL
== END 2021-06-21 08:04 | disposition home or self-care (01) ==
PROVIDERS: Visit Provider Obstetrics & Gynecology Gynecology
DX: O24.439 Gestational diabetes mellitus in the puerperium, unspecified control (principal); E55.9 Vitamin D deficiency, unspecified
CPT/HCPCS: 36415; 82306; 82951

== ENCOUNTER 2022-06-29 18:12 | Emergency (ER) | payer OTHER, SELFPAY ==
[2022-06-29 18:18] VITALS: BP 135/70; PULSE 95; RESP 16; TEMP 36.9; O2SAT 99
--- NOTE | 2022-06-29 18:57 | ED.GENADULT ---
HPI - General Adult General Chief complaint: Upper Respiratory Infection Stated complaint: Sore Throat Source: patient Mode of arrival: ambulatory Limitations: no limitations History of Present Illness HPI narrative: Patient presents for evaluation of sore throat for the last week. No fever, chills, nausea, vomiting, cough, shortness of breath, otalgia. No recent sick contacts to her knowledge. She does not smoke. No underlying medical problems. She is taking Tylenol and ijdq-fim-nmlirpk agents for symptom management. Medications have not particularly helped. Related Data Allergies Allergy/AdvReac Type Severity Reaction Status Date / Time No Known Allergies Allergy Unknown Verified 06/29/22 18:31 Review of Systems Review of Systems: CONSTITUTIONAL: Denies fever, chills, or sweats. EYES: Denies visual changes, redness, or discharge. ENT: Reports sore throat. Denies rhinorrhea, congestion, or otalgia. CARDIOVASCULAR: Denies chest pain, palpitations, or edema. RESPIRATORY: Denies cough or dyspnea. GASTROINTESTINAL: Denies abdominal pain, nausea, vomiting, or diarrhea. GENITOURINARY: Denies dysuria or hematuria. SKIN: Denies rash or itching. MUSCULOSKELETAL: Denies back pain, joint pain, or myalgia. NEUROLOGIC: Denies headache, numbness, dizziness, or weakness. PSYCHIATRIC: Denies anxiety or depression. PMFSH Past Medical History Medical History No pertinent past medical history contractions Round ligament pain Surgical History Surgical History No pertinent past surgical history Family History Family History Other No pertinent family history Social History Social History (Updated 06/29/22 @ 18:59 by Ovidio Rehman [facility], ) Social History: Non-smoker Smoking status: Never smoker Substance use: never Living arrangements: with family Gender identity (if verbalized by the patient): Female Spiritual care concerns: No Exam Narrative: GENERAL: Well-appearing, well-nourished, and in no acute distress. HEAD: Normocephalic, atraumatic. EYES: PERRLA and EOMI. ENT: Nares clear, no rhinorrhea or epistaxis. Mucous membranes moist. Bilateral tonsillar swelling with erythema and white exudate. Uvula is midline. Bilateral TMs pearly flores nonbulging NECK: Supple. No adenopathy or masses. No carotid bruits or JVD CHEST: Clear to auscultation. No respiratory distress. No wheezes rales or rhonchi HEART: Regular rate and rhythm. No murmur heard. Normal peripheral pulses. ABDOMEN: Soft, nontender, nondistended, normal active bowel sounds. EXTREMITIES: Normal range of motion. No edema. SKIN: Warm, dry, no rash. NEURO: No focal deficits. Alert and oriented x3. PSYCH: Normal mood and affect. Course Course Emergency Course: This is a 22-year-old female who presented for evaluation of sore throat. Rapid strep positive. Will treat with amoxicillin. Increase hydration. Kwmr-qhv-ytbamwr agents for symptom management. Follow up with primary provider. Go to the ER if the bleeding or swelling. Patient in agreement plan of care. Level of Care: Express Care Visit Vital Signs Vital signs: Vital Signs Temperature 36.9 C 06/29/22 18:18 Pulse Rate 95 06/29/22 18:18 Respiratory Rate 16 06/29/22 18:18 Blood Pressure 135/70 06/29/22 18:18 Pulse Oximetry 99 06/29/22 18:18 Oxygen Delivery Room Air 06/29/22 18:18 Temperature 36.9 C 06/29/22 18:18 Pulse Rate 95 06/29/22 18:18 Respiratory Rate 16 06/29/22 18:18 Blood Pressure 135/70 06/29/22 18:18 Pulse Oximetry 99 06/29/22 18:18 Oxygen Delivery Room Air 06/29/22 18:18 Medical Decision Making Vital Signs Vital Signs: Vital Signs Temperature 36.9 C 06/29/22 18:18 Pulse Rate 95 06/29/22 18:18 Respiratory Rate 16 0
== END 2022-06-29 18:59 | disposition home or self-care (01) ==
PROVIDERS: Emergency Provider Nurse Practitioner; PCP Emergency Medicine
DX: J02.0 Streptococcal pharyngitis (principal)
CPT/HCPCS: 87880; 99213; G0463

== ENCOUNTER 2024-08-02 17:11 | Emergency (ER) | payer BC, SELFPAY ==
--- NOTE | ~2024-08-02 | US_ITS ---
EXAMINATION: US OB <=14 wk fetus w TV INDICATION: THREATENED MISCARRIAGE TECHNIQUE: Sonography of the pelvis was performed by transabdominal and transvaginal techniques. COMPARISON: None. RESULT: Uterus: 12.6 x 6.7 x 6.3 cm. Anteverted. Homogenous myometrium. Intrauterine gestational sac: Single present. Mean Sac Diameter: 3.18 cm, corresponding gestational age 8 week 3 days. Yolk sac: 0.6 cm . Embryo: Single present. [place] rump length: 0.75 cm, corresponding gestational age 6 weeks, 5 days. Gestational heart rate: present 136 bpm. Subgestational hematoma: Absent . Right ovary: Not visualized. Left ovary: Not visualized. Pelvis free fluid: None. IMPRESSION: Single, live intrauterine gestation. Estimated Gestational Age: 6 weeks, 5 days by crown rump length. ARTEMIO by ultrasound 03/17/2025. Reviewed, dictated and finalized at location K. IMPRESSION: Single, live intrauterine gestation. Estimated Gestational Age: 6 weeks, 5 days by crown rump length. ARTEMIO by karen ound 03/17/2025.
[2024-08-02 17:13] VITALS: BP 133/102; PULSE 100; RESP 18; TEMP 36.9; O2SAT 100
--- OUTSIDE RECORDS SUMMARY | 2024-08-02 19:07 | XMS_ITS | Clinical Summary ---
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 Name Role Phone Unavailable Primary Care Provider Unavailabl e Social History Tobacco Use Types Packs/Day Years Used Date Smoking Tobacco: Never Assessed Comments Unknown Sex and Gender Information Value Date Recorded Sex Assigned at Not on file Legal Sex Female 2:17 PM CDT Gender Identity Not on file Sexual Orientation Not on file Plan of Treatment Health Maintenance Due Date Last Done Comments HPV VACCINES (1 - 3-dose series) 2013 DTAP/TDAP/TD VACCINES (1 - Tdap) 2017 HEPATITIS B VACCINES (1 of 3 - 19+ 3-dose series) 2017 CERVICAL CANCER SCREENING 2019 INFLUENZA VACCINE (#1) 2023 PNEUMOCOCCAL VACCINE 0-49 YEARS Aged Out No longer eligible based on patient's age to complete this topic Insurance [id number] [place]IL[place] [id number] [place] [id number]
--- OUTSIDE RECORDS SUMMARY | 2024-08-02 19:07 | XMS_ITS | Data Portability ---
Author Organization [facility] Address [address] [place] [address] Assessment Encounter Date Assessment Date Assessment LastModified by Organization Details LastModified Time 07/28/2024 07/28/2024 Patient is ___weeks . Discussed plan. [email or web address] Not available 07/28/2024 16:54:55 Plan of Treatment Reminders Order Date Submit Date Provider Last Modified By Organization Details Last Modified Time Details Appointments U/S OB SNEAK PEAK 2024 01:30P M ULTRASOUND Not available Not available Not available OB SCREEN 2024 02:15P Edel TALBOT MD Not available Not available Not available U/S OB FIRST LOOK 2024 08:30A M ULTRASOUND Not available Not available Not available OB NEW 2024 09:00A Edel TALBOT MD Not available Not available Not available Lab pap, IG + reflex HPV if ASC-U - if positiv e HPV run subtypi ng 16,18/[address]/gc/t rich 2024 025 [facility] (Lab), [address], [place], [address], 07/28/2024 17:32:27 Referral None recorde d. Procedures None recorde d. Surgeries None recorde d. Imaging US, obstetr ic, transva ginal 2024 025 [email or web address], [address], [address], [place], [address], 07/28/2024 18:49:44 Medication Orders None recorde d. Patient TargetsNo targets recorded. Patient InstructionsNo instructions recorded. Reason for Referral None Reported. Results Created Date Observation Date Name Description Value Unit Range Abnormal Flag Note LastModifiedBy Organization Detail LastModifiedTime 07/29/1907/28/2024 CULTU RE: URINE result report SEE RESULT S BELOW Test: Cultu re: Urine Speci men Sourc e: Urine - Clean Catch Speci men Type: Urine Speci men Date: 1739 Resul t Date: 604 Resul t Statu s: Final resul t Abnor mal: No Resul ting Lab: [facility] [address] [facility] [address] Tel: CULTU RE ----- ----- ----- --- No growt h in 1 day (dete ction level of 10,00 0 colon ies / ml.) Not Available [facility] (Lab) [address], [place], [address], 07/30/2024 07:11:16 07/29/19 25 07/28/2024 US, obste tric, trans vagin al No observ ation record ed. [email or web address] [address], [place], [address], 07/28/2024 18:46:59 07/29/19 25 07/28/2024 US, obste tric, follo w-up No observ ation record ed. [email or web address] [facility] [address], [place], [address], 08/02/2024 18:25:51 Result Notes None recorded. Problems Name Problem SNOMED Code Status Onset Date Resolution Date Notes Provider Name and Address Organization Details Recorded Time Pelvic and perineal pain 300134448 Active 2016 Pelvic and perineal pain;Recor ded Elsewhere: No Locatio n: [facility] rce: EHR Chroni c: N Practice ID: 0001 Billa ble Time: 11:00:00 AM Not Available [facility] 12/20/202 0 21:35:17 Infection screening Active 2015 Encounter for screening for oth infec/para stc diseases;R ecorded Elsewhere: No Locatio n: [facility] rce: EHR Chroni c: N Practice ID: 0001 Billa ble Time: 03:15:00 PM Not Available [facility] 0 21:35:17 Chlamydia l infection 407756464 Active 2018 Chlamydial infection, unspecifie d;Recorded Elsewhere: No Locatio n: [facility] rce: EHR Chroni c: N Practice ID: 0001 Billa ble Time: 01:45:00 PM Not Available [facility] 0 21:35:[address] Concept Active 2015 Encntr for routine child health exam w/o abnormal findings;R ecorded Elsewhere: No Locatio n: [facility] rce: EHR Chroni c: N Practice ID: 0001 Billa ble Time: 03:15:00 PM Not Available [facility] 0 21:35:17 Insertion of intrauter ine contracep tive device Active 2015 Encounter for insertion of intrauteri ne contracept sindy device;Rec orded Elsewhere: No Locatio n: [facility] rce: EHR Chroni c: N Practice ID: 0001 Billa ble Time: 09:45:00 AM Not Available [facility] 0 21:35:17 Contracep tive sheath status 445996949 Active 2015 Encounter for routine checking of IUD;Record ed Elsewhere: No Locatio n: [facility] rce: EHR Chroni c: N Practice ID: 0001 Billa ble Time: 10:00:00 AM Not Available [facility] 0 21:35:17 Vaginolab ial hernia Active 2015 Other specified noninflamm atory disorders of vagina;Rec orded Elsewhere: No Locatio n: [facility] rce: EHR Chroni c: N Practice ID: 0001 Billa ble Time: 03:15:00 PM Not Available [facility] 0 21:35:17 test negative 720613584 Active 2015 Encounter for test, result negative;R ecorded Elsewhere: No Locatio n: [facility] rce: EHR Chroni c: N Practice ID: 0001 Billa ble Time: 03:15:00 PM Not Available [facility] 0 21:35:17 Removal of intrauter ine device Active 2018 Encounter for removal of intrauteri ne contracept sindy device;Rec orded Elsewhere: No Locatio n: [facility] rce: EHR Chroni c: N Practice ID: 0001 Billa ble Time: 09:09:00 AM Not Available [facility] 0 21:35:[address] Concept Active 2015 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 for 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 exam (general) (routine) w/o abn findings;R ecorded Elsewhere: No Locatio n: [facility] rce: EHR Chroni c: N Practice ID: 0001 Billa ble Time: 03:15:00 PM Not Available [facility] 0 21:35:[address] Concept Active 2018 Encntr for general adult medical exam w/o abnormal findings;R ecorded Elsewhere: No Locatio n: [facility] rce: EHR Chroni c: N Practice ID: 0001 Billa ble Time: 08:30:00 AM Not Available [facility] 0 21:35:18 Evaluatio n finding Active 2017 Hematuria, unspecifie d;Recorded Elsewhere: No Locatio n: [facility] rce: EHR Chroni c: N Practice ID: 0001 Billa ble Time: 08:15:00 AM Not Available [facility] 0 21:35:18 Syphilis test finding 546960833 Active 2015 Encntr screen for infections w sexl mode of transmiss; Recorded Elsewhere: No Locatio n: [facility] rce: EHR Chroni c: N Practice ID: 0001 Billa ble Time: 03:15:00 PM Not Available [facility] 0 21:35:18 Problem Notes None recorded. Procedures Surgical History None recorded. Imaging Results Imaging Date Name Status LastModified by Organization Details LastModified Time 07/28/2024 US, obstetric, transvaginal completed [email or web address] [facility] [address], [place], [address], 07/28/2024 18:46:59 07/28/2024 US, obstetric, follow-up completed [email or web address] [facility] [address], [place], [address], 08/02/2024 18:25:51 Procedure Notes None recorded. Medical Equipment None Reported. Allergies No known drug allergies Medications Name Sig Start Date Stop Date Status Note LastModified by Organization Details LastModified Time Metrogel Vaginal 0.75 % (37.5 mg/5 gram) insert 1 applicat orful by vaginal route every day at bedtime 08/07 completed Prescrib ed Elsewher e: No Locat ion: [facility] odify By: ashly Silva ntkassy DateTime : 08/07/19 08:30:00 AM Not Available Not Available Not Available Flagyl 500 mg tablet take 1 tablet by oral route every 12 hours 09/16 completed Prescrib ed Elsewher e: No Locat ion: [facility] odify By: eliot mercado DateTime : 08/11/19 11:10:58 AM Not Available Not Available Not Available cephalexi n 500 mg capsule TAKE 1 CAPSULE BY MOUTH TWICE A DAY FOR 10 DAYS 07/28 completed Not Available Not Available Not Available ibuprofen 200 mg tablet take 1 tablet by oral route every 6 hours as needed with food 07/28 completed Prescrib ed Elsewher e: Yes Loca tion: [facility] odify By: eliot mercado DateTime : 04/11/20 11:00:00 AM Not Available Not Available Not Available mupirocin 2 % topical ointment APPLICAT ION SITE: APPLY TO AFFECTED AREA TWICE DAILY FOR 7 DAYS 07/28 completed Not Available Not Available Not Available Bactrim DS 800 mg-160 mg tablet take 1 tablet by oral route every 12 hours 08/06 completed Prescrib ed Elsewher e: No Locat ion: [facility] odify By: alexia Das ncounter DateTime : 04/11/20 17 11:00:00 AM Not Available Not Available Not Available Zithromax 500 mg tablet take 2 tablet by oral route once 09/16 completed Prescrib ed Elsewher e: No Locat ion: [facility] thiago [facility] odify By: eliot Das ncounter DateTime : 08/07/19 19 09:09:52 AM Not Available Not Available Not Available Ortho-Cyc arlene (28) 0.25 mg-35 mcg tablet take 1 tablet by oral route every day 09/09 completed Prescrib ed Elsewher e: No Locat ion: [facility] odify By: ashly Silva nter DateTime : 08/07/19 19 08:30:00 AM Not Available Not Available Not Available active Not Available Not Avai lable Not Available Tawanna 14 mcg/24 hr (up to 3 years) 13.5 mg intrauter ine device 08/06 completed Prescrib ed Elsewher e: Yes [facility] By: ashly Silva nter DateTime : 11/09/19 16 09:45:00 AM Not Available Not Available Not Available Vitals Date Recorded Body weight Systolic blood pressure Diastolic blood pressure Provider Name and Address Organization Details Last Updated DateTime 07/28/2024 496614.56 g 139 mm[Hg] 84 mm[Hg] [facility] 07/28/2024 16:57:36 Social History None recorded. Functional Status None recorded. Mental Status None recorded. Family History Nothing Reported Notes:Maternal aunt: Cancer, ovarian Maternal grandfather: Heart disease, Tuberculosis Maternal grandmother: Hyperlipidemia Mother: Hypertension Medical History Condition Response Allergies (Food, seasonal, environmental ) N Other N Breast Cancer N Drug/Latex Allergies/Reactions N Blood Transfusion N Dermatologic Disorders N Lung Disease N Defects or Inherited Disease N Breast Problem N Gestational Diabetes Y Hematologic disorders N Anesthesia Complications N History of STI N Deep Vein Thrombosis N Polycystic ovary syndrome N Anxiety Disorder N Autoimmune disease N Arthritis N Infertility N Polyps N Acid Reflux (GERD) N History of abnormal pap N Cancer N Stroke N Varicosities N Neurologic/Epilepsy N Endometriosis N High Cholesterol N Headaches N Fibromyalgia N Kidney Disease N Heart Problems N Kidney or Bladder Problems N Thyroid Problems N GI Problems N Eating Disorder N Anemia N Art (IVF or FET) N Psychiatric Illness N Ovarian Cancer N Diabetes N Pulmonary (TB, Asthma) N Hepatitis/Liver Disease N No Past Medical History N Eczema N Urinary Tract Infection N Abuse/Domestic Violence N Asthma N Trauma/Violence N Depression/ depression N Heart Disease N Pre-Eclampsia N Hypertension Y Osteoporosis N Thrombophilias N Gynecological History Statement/Question Response Abnormal Pap N Date of Last Pap Smear Current Control Method Date of LMP 06/09/2024 Sexually Active? Y Obstetrics History GPAL:G 4 P 2 0 1 2 Type Value Full Term 2 Induced 1 Living 2 Total 4 Past Encounters Encounter ID Performer Location Encounter Start Date Encounter Closed Date Diagnosis/Indication Diagnosis SNOMED-CT Code Diagnosis ICD10 Code Diagnosis [facility] [id number] [facility] [address] [address] 07/28/2024 14:57:10 07/28/2024 15:58:50 screening [id number] Z36.87 Z3A.01 [id number] Nedra Calvert [facility] [address] [address] 07/28/2024 15:02:32 07/28/2024 17:37:13 Amenorrhea [id number] N91.2 this patient is a 24-year-ol d female who presents for amenorrhea . She is a positive test. Ultrasound revealed a 1st trimester gestation. Patient has no complaints . We talked about early care. Talked about genetic screening. We talked about her ultrasound results. We talked about the 12 week ultrasound that has genetic screening components . She was given recommenda tions on exercise, diet, over-the-c ounter medication s. We reviewed her obstetric history. We reviewed her medical history. We reviewed her social history. She will begin routine care at her next visit. Gynecologi c examination [id number] Z01.419 Health Concerns Section Related Observation LastModified by Organization Detai ls LastModified Time None Recorded Concern Status LastModified by Organization Details LastModified Time None Recorded Advance Directives Directive None Recorded Payers Encounter Date Sequence Insurance Name Policy Number Policy Cano Covered Member ID Cano Member ID Guarantor Name 07/28/2024 1 [place] [id number] Becky Tao [id number] Becky Tao 07/28/2024 1 [place] [id number] Becky Tao [id number] Becky Tao Notes Date Note Type Note Provider Name and Address Organization Details Recorded Time 07/28/2024 text/html this patient is a 24-year-old female who presents for amenorrhea. She is a positive test. Ultrasound revealed a 1st trimester gestation. Patient has no complaints. We talked about early care. Talked about genetic screening. We talked about her ultrasound results. We talked about the 12 week ultrasound that has genetic screening components. She was given recommendations on exercise, diet, [id number] medications. We reviewed her obstetric history. We reviewed her medical history. We reviewed her social history. She will begin routine care at her next visit. Nedra resenidz, [facility] 07/28/2024 17:55:45 OBGyn Episode Ob Episode Information Episode Created Date Number of Fetuses Patient Bloodtype Patient rh Status Prepregnancy Weight lbs Domestic Partner Domestic Partner Phone Father Name Iron Cutter Status 07/29/19 25 1 CLOSED Fetus Data First Name Last Name Admitted to NICU Weight (g) Sex Living Outcome Pediatric Complications Fetus ID Race Codes Race Delivery Type M Full Term [id number] Vaginal Delivery Matt Calculation Initial Matt Date Initial Exam Date Initial Exam Provider Initial Ultrasound Date Last Menstrual Period Date Ultra Sound Weeks Gestation 0 Eighteen To Twenty Week Matt Update Ultra Sound Date Fundal Height At Umbil Quickening Date Ultra Sound Latest Weeks Gestation Final Matt Confirmed By Final Matt Confirmed Date Final Matt Date Ultra Sound Latest Days Gestation 0 0 Menstrual History Last Menstrual Date Menses Monthly On Bcp Conception Prior Menses Frequency Hcg Plus Date Menarche Onset Age Delivery Information Delivery Date Delivery Type Labor Anesthesia Weeks Gestation Incision Type Labor Labor Length Hrs Delivered By Post Complications Tubal Sterilization Discharge Date Comments 1 Discharge Information Feeding Method Contraceptive Method Maternal HG B and HCT Levels Ob Episode Information Episode Created Date Number of Fetuses Patient Bloodtype Patient rh Status Prepregnancy Weight lbs Domestic Partner Domestic Partner Phone Father Name Iron Cutter Status 07/29/19 25 1 CLOSED Fetus Data First Name Last Name Admitted to NICU Weight (g) Sex Living Outcome Pediatric Complications Fetus ID Race Codes Race Delivery Type M Full Term [id number] Vaginal Delivery Matt Calculation Initial Matt Date Initial Exam Date Initial Exam Provider Initial Ultrasound Date Last Menstrual Period Date Ultra Sound Weeks Gestation 0 Eighteen To Twenty Week Matt Update Ultra Sound Date Fundal Height At Umbil Quickening Date Ultra Sound Latest Weeks Gestation Final Matt Confirmed By Final Matt Confirmed Date Final Matt Date Ultra Sound Latest Days Gestation 0 0 Menstrual History Last Menstrual Date Menses Monthly On Bcp Conception Prior Menses Frequency Hcg Plus Date Menarche Onset Age Delivery Information Delivery Date Delivery Type Labor Anesthesia Weeks Gestation Incision Type Labor Labor Length Hrs Delivered By Post Complications Tubal Sterilization Discharge Date Comments 0 Discharge Information Feeding Method Contraceptive Method Maternal HG B and HCT Levels
--- OUTSIDE RECORDS SUMMARY | 2024-08-02 19:08 | XMS_ITS | Continuity of Care Document ---
Author Organization [facility] Address [address] [place] [address] Dr [address] [place] [phone] Phone Care Team Providers Care Diamond Grinder Name Role Phone Gabino FERNANDEZ, Bradley Unavailable [...] on Encounter Office/outpa tient Visit, [facility], [address] [place] [address] [address], [place], [place], [address], [place] tel:[phone] SEC [place] AMADO Professional 1 week follow up (chief complaint) Recurrent iritis of left eye Oct-0 7- 6 Gabino Huerta. [address], [place], [address], [place]. tel:[phone] Referring Provider: Kartik Maki MD P, [address] [facility], [place], [address]. tel:[phone] Office/outpa tient Visit, [facility], [address] [place] [address] [address], [place], [place], [address], [place] tel:[phone] SEC Boubacar AMADO Professional 3 day follow up for acute iridocyclitis (chief complaint) Acute iritis, left eye Sep-2 6 Gabino Huerta. [address] [place], [address], [place]. tel:[phone] Referring Provider: Kartik Maki MD P, [address] [facility], [place], [address]. tel:[phone] Office/outpa tient Visit, [facility], [address] [place] [address] [address], [place], [place], [address], [place] tel:[phone] SEC Boubacar AMADO Professional Pain and redness (chief complaint) No Information Sep-2 6 Gabino Huerta. [address], [address], [place], [place], [address], [place]. tel:[phone] Referring Provider: Kartik Maki MD P, [address] [facility], [place], [address]. tel:[phone] Office/outpa tient Visit, [facility], [address] [place] [address] [address], [place], [place], [address], [place] tel:[phone] SEC [place] Professional Redness and itching (chief complaint) No Information 5 Wankum Bradley. [address], [place], [place], [address], [place]. tel:[phone] Referring Provider: Kartik Maki MD P, [address], [place], [place], [facility]. tel:[phone] Office/outpa tient Visit, [facility], [address] [place] [address] [address], [place], [place], [address], [place] tel:[phone] SEC [place] Professional Visual Disturbance OU (chief complaint) No Information 5 Glynn Verdugo. [address], [place], [facility], [place]. tel:[phone] Referring Provider: Kartik Maki MD P, [address], [place], [facility]. tel:[phone] Office/outpa tient Visit, [facility], [address] [place] [address] [address], [place], [place], [address], [place] [phone] SEC [place] Professional redness (chief complaint) No Information 4 Wankum Bradley. [address], [place], [place], [address], [place]. tel:[phone] Referring Provider: Kartik Maki MD P, [address], [place], [facility]. tel:[phone] Office/outpa tient Visit, [facility], [address] [place] [address] [address], [place], [place], [address], [place] tel:[phone] SEC [place] Professional WIE (chief complaint) No Information 4 Wankum Bradley. [address], [place], [place], [address], [place]. tel:[phone] Referring Provider: Kartik Maki MD P, [address], [place], [address]. tel:[phone] Office/outpa tient Visit, [facility], [address] [place], [place], [place], [address], [place] tel:[phone] SEC [place] [address] pain and redness (chief complaint) No Information 3 Samantha Lechuga. [address] [facility], [address], [place], [place], [address], . tel:[phone] Referring Provider: Kartik Maki MD P, [address] [facility] [address], [place], [address]. tel:[phone] Office/outpa tient Visit, [facility], [address] [place] [address] [address], [place], [place], [address], tel:[phone] SEC [place] [address] blurry vision (chief complaint) No Information 3 Samantha Lechuga. [address] [facility], [address], [place], [place], [address], . tel:[phone] Referring Provider: Kartik Maki MD P, [address] [facility] [address], [place], [facility]. tel:[phone] Office/outpa tient Visit, [facility], [address] [place] [address] [address], [place], [place], [address], [place] tel:[phone] SEC Boubacar AMADO Professional a comprehensive exam (chief complaint) No Information 3 Gabino Huerta. [address], [place], [place], [address], . tel:[phone] Referring Provider: Kartik Maki MD P, [address] [facility] [address], [place], [address]. tel:[phone] Office/outpa tient Visit, [facility], [address] [place] [address] [address], [place], [place], [address], [place] tel:[phone] SEC [place] Professional blurry vision (chief complaint) No Information 3 Gabino Huerta. [address] [facility] [place], [address], . tel:[phone] Referring Provider: Kartik Maki MD P, [address], [place], [facility]. tel:[phone] Office/outpa tient Visit, [facility], [address] [place] [address] [address], [place], [place], [address], tel:[phone] SEC [place] Professional 4 day f/u (chief complaint) No Information 3 Gabino Huerta. [address] [facility], [address] [place], [address], . tel:[phone] Referring Provider: Kartik Maki MD P, [address], [place], [facility]. tel:[phone] Office/outpa tient Visit, [facility], [address] [place], [place] [address], [place], [place], [address], tel:[phone] SEC [place] Professional glare (chief complaint) No Information 3 Glynn Verdugo. [address], [address], [place], [address], [place]. tel:[phone] Referring Provider: Jose Ahn MD, [address] [facility] [address], [place], [address]. tel:[phone] Family History Family Member Type Diagnosis Age At Onset Problem (finding) Mother Problem (finding) hypertension Payers Payer name Insurance type Covered democrat ID Moni adams(s) [facility] CI [id number] Social History Type Description Quantity Date Captured [...] Patient states that OS is roseanna feeling better . Patient denies flashes and floaters OU. Pain [...] going to see a RA specialist at [facility] on January 12. Patient forgot glasses. WIE [...] Related to Recurrent iritis of left eye Acute iritis, left e ye - Educational material given Related to Acute iritis, left eye Impression/Plan - Re solving Iritis OS. Every 2 hours for 2 days and QID until next appt. Return to clinic in 1 week for follow up or sooner with any problems. Return to school form completed excusing patient from outdoor activities due to photophobic. Follow up - Return i n 1 week with Bradley Lloyd M.D. for follow up exam. Keratic precipitates of left eye - Educational material provided Related to Keratic precipitates of left eye Impression/Plan - Di scussed diagnosis in detail with patient. Start Pred 1gtt OS every 2 waking hours. Erx to [email or web address]. Return to clinic for follow up or sooner with any problems. Follow up - Return t o clinic for follow up - Discussed diagnosi s with patient start Pred Mild 1gtt ou QID x5 days BID x2-3 days then stop. Return as needed. erx pred mild to [email or web address]. Related to REDNESS/DISCHARGE OF EYE - as needed Related to REDNE SS/DISCHARGE OF EYE - Reviewed symptoms in detail with patient. No cause for vision loss noted during the exam. Refer patient to ferry pilot Dr Linda Ahn for evaluation and possible referral to neurology. Return to clinic as needed. Letter dictated to Dr Ahn. Related to Sudden loss of vision - as needed Related to Adriel n loss of vision - pred qid [...] 1% 6-8 times per day-she'll see her ferry pilot and get checked for autoimmune dx Related [...] Date assessment Recurrent iritis of left eye Oct -07-2016 Patient Care Teams Name Effective Dates (start - stop) Status Members No Information
--- OUTSIDE RECORDS SUMMARY | 2024-08-02 19:08 | XMS_ITS | Clinical Summary ---
Author Organization [facility] Address [address] [place] [address] Phone Care Team Providers Care Bundler Name Role Phone Provider, None Primary Care Provider Unavailabl e Allergies No known active allergies Medications No known medications Immunizations Immunization Administration Dates Next Due DTAP VACCINE 10/20/2003, 0,1998,09/04,1998 Hepatitis A, Pediatric, Unsp ecified Formulation 11/08/2008 Hepatitis B Vaccine, Pediatric/adolescent 02/23/1999,1998,1998 Hib Vaccine,unspecified Formulation 05/27,1998,1998,07/07 Human Papillomavirus Vaccine (HPV), quadrivalent 01/17/2014,03/04/2013,03/01/2013,01/15 Inactivated Polio Vaccine 10/20/2003,1998, 1998 MMR Vaccine 10/20/2003,06/15/1999 Meningococcal MCV4O 12/26/2015 Meningococcal Vaccine, Unspe cified Formulation 11/07/2009 OPV 02/23/1999 TDAP Vaccine 11/08/2008 Varicella Vaccine Live 11/08/2008,06/15/1999 Social History Tobacco Use Types Packs/Day Years Used Date Smoking Tobacco: Never Smokeless Tobacco: Never Tobacco Cessation:Counseling Given: Not Answered Alcohol Use Standard Drinks/Week Comments No 0 (1 standard drink = 0.6 oz pur e alcohol) Comments No Sex and Gender Information Value Date Recorded Sex Assigned at Not on file Legal Sex Female 10:09 PM CDT Gender Identity Not on file Sexual Orientation Not on file Last Filed Vital Signs Vital Sign Reading Time Taken Comments Blood Pressure 122/80 09/10/2023 5:46 PM CDT Pulse 82 09/10/2023 5:46 PM CDT Temperature 36.6 C (97.9 F) 09/10/2023 5:46 PM CDT Respiratory Rate 20 09/10/2023 5:46 PM CDT Oxygen Saturation 98% 09/10/2023 5:46 PM CDT Inhaled Oxygen Concentration - - Weight 104.3 kg (230 lb) 11/20/2021 9:09 AM CDT Height 167.6 cm (5' 6 ) 11/20/2021 9:09 AM CDT Body Mass Index 37.12 11/20/2021 9:09 AM CDT Plan of Treatment Health Maintenance Due Date Last Done Comments Hepatitis C Virus (HCV) Screening 1998 DTaP/Tdap/Td Immunization (7 - Td or Tdap) 11/08/2018 11/08/2008, 10/20/2003, 06/15/1999, Additional history exists Pap Smear 2019 Influenza Immunization (#1) 2024 SARS-COV-2 Immunization ( season) 2024 Respiratory Syncytial Virus (RSV) Immunization (Adult) (1 - 1-dose 75+ series) 2073 Hepatitis B Immunization Completed 999, 1998, 1998 TdaP Immunization Discontinued 11/08/2008 Human Papillomavirus (HPV) Immunization Completed 01/17/2014, 03/04/2013, 03/01/2013, Additional history exists Meningococcal Immunization (ACWY) Completed 12/26/2015, 11/07/2009 Pneumococcal Immunization Combined Aged Out No longer eligible based on patient's age to complete this topic Rotavirus Immunization Aged Out No lo nger eligible based on patient's age to complete this topic Insurance MEDICAID [place] Care Teams Bundler Relationship Specialty Start Date End Date Provider, None [place] PCP - General 11/20/21
--- NOTE | 2024-08-02 19:25 | PC.NURSE ---
Took over for pt at 1915. Pt being wheeled to [place].
[2024-08-02 19:45] VITALS: BP 133/74; PULSE 82; RESP 17; O2SAT 99
--- OUTSIDE RECORDS SUMMARY | 2024-08-02 19:48 | XMS_ITS | Clinical Summary ---
Author Organization [facility] Address [address] [place] [address] Phone Care Team Providers Care Cray Fishing Hand Name Role Phone Unavailable Primary Care Provider [...] patient's age to complete this topic Insurance [id number] SILVERIO [id number] [place]ID [place]
--- OUTSIDE RECORDS SUMMARY | 2024-08-02 19:48 | XMS_ITS | Continuity of Care Document ---
Author Organization [facility] Address [address] [place] [address] Dr Perdue [address] [place] [phone] Phone Care Team Providers Care Mineral Technologist Name Role Phone Gabino FERNANDEZ, Bradley Unavailable [...] on Encounter Office/outpa tient Visit, [facility], [address] [place] [address] [address], [place], [place], [address], [place] tel:[phone] SEC Boubacar AMADO Professional 1 week follow up (chief complaint) Recurrent iritis of left eye Oct-0 7- 6 Gabino Huerta. [address], [address] [place], [address], [place]. tel:[phone] Referring Provider: Kartik Maki MD P, [address] [facility], [place], [address]. tel:[phone] Office/outpa tient Visit, [facility], [address] [place] [address] [address], [place], [place], [address], [place] tel:[phone] SEC Boubacar AMADO Professional 3 day follow up for acute iridocyclitis (chief complaint) Acute iritis, left eye Sep-2 6 Gabino Huerta. [address], [address] [place], [address], [place]. tel:[phone] Referring Provider: Kartik Maki MD P, [address] [facility], [place], [address]. tel:[phone] Office/outpa tient Visit, [facility], [address] [place] [address] [address], [place], [place], [address], [place] tel:[phone] SEC Boubacar AMADO Professional Pain and redness (chief complaint) No Information Sep-2 6 Gabino Huerta. [address], [place], [place], [address], [place]. tel:[phone] Referring Provider: Kartik Maki MD P, [address] [facility], [place], [address]. tel:[phone] Office/outpa tient Visit, [facility], [address] [place] [address] [address], [place], [place], [address], [place] tel:[phone] SEC [place] Professional Redness and itching (chief complaint) No Information 5 Wankum Bradley. [address], [place], [place], [address], [place]. tel:[phone] Referring Provider: Kartik Maki MD P, [address], [place], [facility]. tel:[phone] Office/outpa tient Visit, [facility], [address] [place] [address] [address], [place], [place], [address], [place] tel:[phone] SEC [place] Professional Visual Disturbance OU (chief complaint) No Information 5 Glynn Verdugo. [address], [place], [facility], [place]. tel:[phone] Referring Provider: Kartik Maki MD P, [address], [place], [facility]. tel:[phone] Office/outpa tient Visit, [facility], [address] [place] [address] [address], [place], [place], [address], [place] [phone] SEC [place] Professional redness (chief complaint) No Information 4 Wankum Bradley. [address], [place], [place], [address], [place]. tel:[phone] Referring Provider: Kartik Maki MD P, [address], [place], [facility]. tel:[phone] Office/outpa tient Visit, [facility], [address] [place] [address] [address], [place], [place], [address], [place] tel:[phone] SEC [place] Professional WIE (chief complaint) No Information 4 Wankum Bradley. [address], [place], [place], [address], [place]. tel:[phone] Referring Provider: Kartik Maki MD P, [address], [place], [address]. tel:[phone] Office/outpa tient Visit, [facility], [address], [place], [place], [address], [place] tel:[phone] SEC Loc [address] pain and redness (chief complaint) No Information 3 [address]. [address] [facility], [address], [place], [place], [address], . tel:[phone] Referring Provider: Kartik Maki MD P, [address] [facility] [address], [place], [address]. tel:[phone] Office/outpa tient Visit, [facility], [address] [place] [address] [address], [place], [place], [address], tel:[phone] SEC [place] [address] blurry vision (chief complaint) No Information [address] [facility], [address], [place], [place], [address], . tel:[phone] Referring Provider: Kartik Maki MD P, [address] [facility] [address], [place], [facility]. tel:[phone] Office/outpa tient Visit, [facility], [address] [place] [address] [address], [place], [place], [address], [place] tel:[phone] SEC Boubacar AMADO Professional a comprehensive exam (chief complaint) No Information 3 Gabino Huerta. [address], [place], [place], [address], . tel:[phone] Referring Provider: Kartik Maki MD P, [address] [facility] [address], [place], [address]. tel:[phone] Office/outpa tient Visit, [facility], [address] [place] [address] [address], [place], [place], [address], [place] tel:[phone] SEC [place] Professional blurry vision (chief complaint) No Information 3 Gabino Huerta. [address] [facility], [facility] [place], [address], . tel:[phone] Referring Provider: Kartik Maki MD P, [address], [place], [facility]. tel:[phone] Office/outpa tient Visit, [facility], [address] [place] [address] [address], [place], [place], [address], tel:[phone] SEC [place] Professional 4 day f/u (chief complaint) No Information 3 Gaibno Huerta. [address] [facility], [address] [place], [address], . tel:[phone] Referring Provider: Kartik Maki MD P, [address], [place], [facility]. tel:[phone] Office/outpa tient Visit, [facility], [address] [place], [place] [address] [address], [place], [place], [address], tel:[phone] SEC [place] Professional glare (chief complaint) No Information 3 Glynn Verdugo. [address], [place], [address], [place]. tel:[phone] Referring Provider: Jose Ahn MD, [address] [facility] [address], [place], [address]. tel:[phone] Family History Family Member Type Diagnosis Age At Onset Problem (finding) Mother Problem (finding) hypertension Payers Payer name Insurance type Covered constitution party ID Moni adams(s) [facility] CI [id number] Social History Type Description Quantity Date Captured [...] Information Instructions Date Instruction Additional Infor radha Recurrent iritis of left eye - Educational material given Related to Recurrent iritis of left eye Follow up - PRN Impression/Plan - Ir itis resolving OS. Continue Pred BID x 1 week then stop. Instructed patient to return to clinic with any problems or if symptoms persist. Acute iritis, left e ye - Educational material given Related to Acute iritis, left eye Follow up - Return i n 1 week with Bradley Lloyd M.D. for follow up exam. Impression/Plan - Re solving Iritis OS. Every 2 hours for 2 days and QID until next appt. Return to clinic in 1 week for follow up or sooner with any problems. Return to school form completed excusing patient from outdoor activities due to photophobic. Impression/Plan - Di scussed diagnosis in detail with patient. Start Pred 1gtt OS every 2 waking hours. Erx to [facility]. Return to clinic for follow up or sooner with any problems. Keratic precipitates of left eye - Educational material provided Related to Keratic precipitates of left eye Follow up - Return t o clinic for follow up - as needed Related to REDNE SS/DISCHARGE OF EYE - Discussed diagnosi s with patient start Pred Mild 1gtt ou QID x5 days BID x2-3 days then stop. Return as needed. erx pred mild to [facility]. Related to REDNESS/DISCHARGE OF EYE - as needed Related to Sudde n loss of vision - Reviewed symptoms in detail with patient. No cause for vision loss noted during the exam. Refer patient to music teacher Dr Linda Ahn for evaluation and possible referral to neurology. Return to clinic as needed. Letter dictated to Dr Ahn. Related to Sudden loss of vision - prn if eye bothers at all Rela mansoor to RECURRENT IRIDOCYCLITIS - pred qid for 5 day s then bid for 5 days Related to RECURRENT IRIDOCYCLITIS - early next week Related to REC URRENT IRIDOCYCLITIS - dilated with isopt hyoscinepred 1 % q2h while awake Related to RECURRENT IRIDOCYCLITIS RECURRENT IRIDOCYCLI TIS OS Resolving - [...] materials provided:Medication Instruction. Related to RECURRENT IRIDOCYCLITIS - prn Related to Iriti s, unspecified iritis os-quiet now- had blood work at drs office-no cause found - pf tid for 5 days then bid for 5 days then d/c Related to Iritis, unspecified - 2weeks Related to Iriti s, unspecified iritis os-slowly imp roving-getting blood work today - pf q3h Related to Iritis, unspecified - 1week Related to Iriti s, unspecified iritis os - dilated with isoptohyoscinecont pred 1% 6-8 times per day-she'll see her music teacher and get checked for autoimmune dx Related to Iritis, unspecified ACUTE IRIDOCYCLITIS NOS OS - DIFFICULT [...]
--- OUTSIDE RECORDS SUMMARY | 2024-08-02 19:48 | XMS_ITS | Clinical Summary ---
Author Organization [facility] Address [address] [place] [address] Phone Care Team Providers Care Aerial Photographer Name Role Phone Provider, None Primary Care [...] this topic Insurance MEDICAID [place] Care Teams Aerial Photographer Relationship Specialty Start Date End Date Provider, None [place] PCP - General 11/20/21
[2024-08-02 19:59] LABS: Basophils Percent Auto 0.5 % (0.2-1.2); Eosinophils Absolute Auto 0.2 K/mm3 (0-0.3); Eosinophils Percent Auto 2.6 % (0-4.4); Hematocrit 34.5 % (37.0-47.0); Hemoglobin 11.5 g/dL (12.0-15.0); Immature Granulocyte Absolute 0.02 K/mm3 (0.00-0.031); Immature Granulocyte Percent A 0.2 % (0-0.5); Lymphocytes Absolute Auto 1.94 K/mm3 (0.9-3.2); Lymphocytes Percent Auto 21.9 % (18.3-44.2); Mean Corpuscular HGB Conc 33.3 g/dl (32-36); Mean Corpuscular Hemoglobin 28.5 pg (26-34); Mean Corpuscular Volume 85.4 fl (80-100); Mean Platelet Volume 9.9 fl (7.4-10.4); Monocytes Absolute Auto 0.5 K/mm3 (0.1-0.6); Monocytes Percent Auto 5.4 % (2.6-8.5); Neutrophils Absolute Auto 6.1 K/mm3 (1.3-6.7); Neutrophils Percent Auto 69.4 % (45.5-73.1); Platelet Count Result 242 k/mm3 (150-375); Red Blood Count 4.04 M/mm3 (4.2-5.4); Red Cell Distribution Width 13.2 % (11.5-14.5); White Blood Count 8.9 K/mm3 (4.5-10.0)
[2024-08-02 20:06] LABS: Add Urine Microscopic? YES; Appearance Urine Clear (Clear); Bacteria Urine None Seen /hpf; Bilirubin Urine Negative (Negative); Blood Urine 2+ (Negative); Color Urine Yellow (Yellow); Glucose Urine UA Negative (Negative); Ketones Urine Negative (Negative); Leukocyte Esterase Ur Trace LEU/UL (Negative); Nitrate Urine Negative (Negative); Non Pathogenic Casts 0-2; Protein Urine Negative (Negative); RBC Urine 0-2 /hpf (0-2); Specific Grav Ur 1.007 (1.001-1.035); Squamous Epithelial Cell Urine Occasional /hpf (Few); Urobilinogen Urine 0.2 mg/dL (<2.0); WBC Urine 0-5 /hpf (0-3); pH Urine 5.5 (5.0-9.0)
[2024-08-02 20:08] LABS: Alanine Aminotransferase 23 U/L (6-35); Albumin Level 4.3 g/dL (3.5-5.1); Alkaline Phosphatase 58 U/L (38-126); Anion Gap 9 mmol/L (4-12); Aspartate Amino Transferase 22 U/L (14-36); Bilirubin,Total 0.4 mg/dL (0.2-1.3); Blood Urea Nitrogen 10 mg/dL (7-17); Calcium 9.2 mg/dL (8.4-10.2); Carbon Dioxide 25 mmol/L (22-30); Chloride 102 mmol/L (98-107); Estimated CRCL calculation 148 ml/min; Estimated Glomerular Filt Rate > 60; Glucose 91 mg/dL (65-110); Magnesium 1.8 mg/dL (1.6-2.3); Potassium 3.9 mmol/L (3.4-5.0); Sodium 136 mmol/L (137-145)
--- NOTE | 2024-08-02 20:31 | ED.FEMALEGU ---
HPI - Female Genitourinary General Chief complaint: [employer] Stated complaint: 6 weeks preg/bleeding, sent by PMD for US Time Seen by Provider: 08/02/24 19:07 History of Present Illness HPI Narrative: Patient is a 24-year-old female who presents emergency department this evening complaining of a vaginal bleeding spotting. Patient states that the bleeding is very minimal and she noticed that this afternoon around 4:00 p.m. The patient states that she is approximately 6 weeks and 4 days . This is her 4th , . She sees Dr. Jensen as her Ob and called her today and was prompted to come to the emergency department for an ultrasound. Patient is that she has not had ultrasound for this yet. Denies any abdominal cramping, denies any additional symptoms or concerns at this time. Related Data Allergies Allergy/AdvReac Type Severity Reaction Status Date / Time No Known Allergies Allergy Unknown Verified 08/02/24 17:12 Review of Systems Review of Systems: All systems are reviewed and are negative unless stated otherwise in the HPI. PMFSH Past Medical History Medical History contractions Round ligament pain No pertinent past medical history Surgical History Surgical History No pertinent past surgical history Family History Family History Other No pertinent family history Social History Social History Social History: Non-smoker Smoking status: Never smoker Substance use: never Living arrangements: with family Gender identity (if verbalized by the patient): Female Spiritual care concerns: No Exam Narrative: General: Alert, awake, afebrile, in no acute distress. HEENT: PERRL, no rhinorrhea, no post nasal drip, oropharynx clear. Neck: Trachea midline, no JVD, no lymphadenopathy. Cardiovascular: Regular rate and rhythm, no murmurs, rubs or gallops, no peripheral edema. Respiratory: Clear to auscultation bilaterally, no tachypnea, no wheezing, no rhonchi, no rubs, no respiratory distress. Abdomen: Soft, nontender, nondistended, no rebound, no guarding, no peritoneal signs. Musculoskeletal: No joint swelling or deformity, normal muscle tone. Skin: No rashes or petechia, no signs of infection. Psychiatric: Alert and oriented, normal behavior and judgment for situation. Neurological: Alert and oriented to person, place, and time. Follows all commands. No focal deficits, speech is clear and fluent. Course Vital Signs Vital signs: Vital Signs Temperature 98.5 F 08/02/24 17:13 Pulse Rate 100 08/02/24 17:13 Respiratory Rate 18 08/02/24 17:13 Blood Pressure 133/102 H 08/02/24 17:13 Pulse Oximetry 100 08/02/24 17:13 Oxygen Delivery Room Air 08/02/24 17:13 Temperature 98.5 F 08/02/24 17:13 Pulse Rate 82 08/02/24 19:45 Respiratory Rate 17 08/02/24 19:45 Blood Pressure 133/74 08/02/24 19:45 Pulse Oximetry 99 08/02/24 19:45 Oxygen Delivery Room Air 08/02/24 17:13 MDM - Female Genitourinary MDM Narrative Medical decision making narrative: The patient was evaluated by myself in the emergency department. History is obtained from patient who is an independent historian and physical exam was performed. External medical records were reviewed at this time. IV was established and pertinent tests were ordered. Laboratory results obtained revealing no acute process. Beta-hCG [id number]. Imaging studies obtained included ultrasound OB less than 14 weeks with transvaginal which was independently interpreted by me revealing a single live intrauterine gestation estimated at 6 weeks and 5 days. Patient was informed of these findings at bedside and provided with a printout of her ultrasound report Differential diagnosis considerations include threatened miscarriage, normal first-trimester bleeding. Comorbidities impacting this visit include none. I have evaluated and discussed social determinants of health with the patient that could potentially impact subsequent diagnosis and treatment plans. On repeat assessment of the patient, reevaluation revealed that the patient is doing well and is in no acute distress. Patient symptoms have remained stable since she arrived to our emergency department. Repeat vital signs were all reviewed and noted to be stable. Differential diagnosis and treatment plan were discussed with the patient at bedside. Patient agrees with discussion and after shared medical decision making agrees with discharge. All questions were answered to the patient's satisfaction. Patient will follow up with her OB in 2 days for repeat beta-hCG. Patient was provided with strict return precautions and instructed to return to the emergency department if any new or worsening symptoms develop. The patient was discharged in stable condition. Lab Data 08/02/24 19:51 08/02/24 19:51 Labs: Lab Results 08/02/24 08/02/24 Range/Units 19:51 19:52 WBC 8.9 (4.5-10.0) K/mm3 RBC 4.04 L (4.2-5.4) M/mm3 Hgb 11.5 L (12.0-15.0) g/dL Hct 34.5 L (37.0-47.0) % MCV 85.4 (80-100) fl MCH 28.5 (26-34) pg MCHC 33.3 (32-36) g/dl RDW 13.2 (11.5-14.5) % Plt Count 242 (150-375) k/mm3 MPV 9.9 (7.4-10.4) fl Immature Gran % (Auto) 0.2 (0-0.5) % Neut % (Auto) 69.4 (45.5-73.1) % Lymph % (Auto) 21.9 (18.3-44.2) % [place] % (Auto) 5.4 (2.6-8.5) % Eos % (Auto) 2.6 (0-4.4) % Baso % (Auto) 0.5 (0.2-1.2) % Lymph # (Auto) 1.94 (0.9-3.2) K/mm3 [place] # (Auto) 0.5 (0.1-0.6) K/mm3 Eos # (Auto) 0.2 (0-0.3) K/mm3 Baso # (Auto) 0.0 (0.0-0.1) K/mm3 Abs Immat Gran (auto) 0.02 (0.00-0.031) K/mm3 Absolute Neuts (auto) 6.1 (1.3-6.7) K/mm3 Absolute Nucleated RBC 0.000 (0.0-0.012) K/mm3 Nucleated RBC % 0.0 (0.0-0.2) % Sodium 136 L (137-145) mmol/L Potassium 3.9 (3.4-5.0) mmol/L Chloride 102 (98-107) mmol/L Carbon Dioxide 25 (22-30) mmol/L Anion Gap 9 (4-12) mmol/L BUN 10 (7-17) mg/dL Creatinine 0.60 L (0.7-1.0) mg/dL Estim Creat Clear Calc 148 ml/min Estimated GFR > 60 (59 - ) Glucose 91 (65-110) mg/dL Calcium 9.2 (8.4-10.2) mg/dL Magnesium 1.8 (1.6-2.3) mg/dL Total Bilirubin 0.4 (0.2-1.3) mg/dL AST 22 (14-36) U/L ALT 23 (6-35) U/L Alkaline Phosphatase 58 (38-126) U/L Total Protein 7.0 (6.3-8.2) g/dL Albumin 4.3 (3.5-5.1) g/dL Beta HCG, Quant 627042.00 mIU/ML Urine Color Yellow (Yellow) Urine Appearance Clear (Clear) Urine pH 5.5 (5.0-9.0) Ur Specific [place] 1.007 (1.001-1.035) Urine Protein Negative (Negative) mg/dL Urine Glucose (UA) Negative (Negative) mg/dL Urine Ketones Negative (Negative) mg/dL Ur Blood (Man) 2+ H (Negative) Urine Nitrate Negative (Negative) Urine Bilirubin Negative (Negative) Urine Urobilinogen 0.2 (<2.0) mg/dL Leukocyte Esterase Rfl Trace H (Negative) QING/UL Urine RBC 0-2 (0-2) /hpf Urine WBC 0-5 (0-3) /hpf Ur Squamous Epith Cells Occasional (Few) /hpf Urine Bacteria None seen /hpf Urine Casts 0-2 Discharge Plan Discharge Clinical Impression: Threatened miscarriage Patient Disposition: Home, Self-Care Condition: Improved Instructions: Antibiotic Form, Threatened Miscarriage (ED) Additional Instructions: Please follow-up with your OB within the next 2 days or return to the emergency department for repeat beta-hCG. Return to the ED if any new or worsening symptoms develop. Patient Language: Malay Prescriptions: No Action amoxicillin 500 mg capsule 500 mg PO TID Qty: 30 0RF Follow-up/Referrals: Beer,Stanley Raoul, MD [Physician] - 2 Days UNKNOWN,DOCTOR [Primary Care Provider] - Time of Disposition: 20:41
[2024-08-02 20:45] VITALS: BP 129/73; PULSE 93; RESP 17; O2SAT 100
== END 2024-08-02 21:20 | disposition home or self-care (01) ==
PROVIDERS: Emergency Provider Emergency Medicine
DX: O20.0 Threatened abortion (principal); Z3A.01 Less than 8 weeks gestation of pregnancy
CPT/HCPCS: 36415; 76801; 76817; 80053; 81001; 83735; 84702; 85025; 99284

== ENCOUNTER 2024-08-04 07:57 | Outpatient (RCR) | payer BC, MEDICAID, SELFPAY | END 2024-11-02 23:59 | disposition home or self-care (01) | LOC: ANHLAB 07:57 | PROVIDERS: Visit Provider Obstetrics & Gynecology | DX: O20.0 Threatened abortion (principal) | CPT/HCPCS: 36415; 76801; 76817; 85461; 86850; 86900; 86901 ==

== ENCOUNTER 2024-08-04 15:51 | Outpatient (CLI) | payer BC, SELFPAY ==
--- NOTE | ~2024-08-04 | US_ITS ---
FIRST TRIMESTER ULTRASOUND 08/04/2024 16:00 CDT Ordering provider: Stanley Jensen MD History: . threatened miscarriage . Comparison: None. FINDINGS: INTRAUTERINE GESTATIONAL SAC: Present. YOLK SAC: Present. Measures 5 mm. POLE: Present. Measures 1.2 cm equivalent to 7 weeks and 1 days. Heart rate is 136 bpm Uterus: Measures 11.8 x 6.5 x 6.5 cm. FREE FLUID: None. OVARIES: Not seen. ADNEXAL MASSES: None. IMPRESSION: Intrauterine of 7 weeks and 1 day. ARTEMIO is March 22, 2025. heart rate is 136 bpm. Reviewed, dictated and finalized at location A. IMPRESSION: Intrauterine of 7 weeks and 1 day. ARTEMIO is March 22, 2025. hea rt rate is 136 bpm.
--- OUTSIDE RECORDS SUMMARY | 2024-08-04 17:41 | XMS_ITS | Continuity of Care Document ---
Author Organization [facility] Address [address] [place] [address] Dr Perdue [address] [place] [phone] Phone Care Team Providers Care Admin Asst Name Role Phone Gabino FERNANDEZ, Bradley Unavailable [...] on Encounter Office/outpa tient Visit, [facility], [address] [place] [address] [address], [place], [place], [address], [place] tel:[phone] SEC [place] AMADO Professional 1 week follow up (chief complaint) Recurrent iritis of left eye Oct-0 7- 6 Gabino Huerta. [address], [address], [address], [place]. tel:[phone] Referring Provider: Kartik Maki MD P, [address] [facility], [place], [address]. tel:[phone] Office/outpa tient Visit, [facility], [address] [place] [address] [address], [place], [place], [address], [place] tel:[phone] SEC Boubacar AMADO Professional 3 day follow up for acute iridocyclitis (chief complaint) Acute iritis, left eye Sep-2 6 Gabino Huerta. [address], [address] [place], [address], [place]. tel:[phone] Referring Provider: Kartik Maki MD P, [address] [facility], [place], [address]. tel:[phone] Office/outpa tient Visit, [facility], [address] [place] [address] [address], [place], [place], [address], [place] tel:[phone] SEC Boubacar AMADO Professional Pain and redness (chief complaint) No Information Sep-2 6 Gabino Huerta. [address], [place], [place], [address], [place]. tel:[phone] Referring Provider: Kartik Maki MD P, [address] [facility], [place], [address]. tel:[phone] Office/outpa tient Visit, [facility], [address] [place] [address] [address], [place], [place], [address], [place] tel:[phone] SEC [place] Professional Redness and itching (chief complaint) No Information 5 Wankum Bradley. [address], [place], [place], [address], [place]. tel:[phone] Referring Provider: Kartik Maki MD P, [address], [place], [place], [facility] [place]. tel:[phone] Office/outpa tient Visit, [facility], [address] [place] [address] [address], [place], [place], [address], [place] tel:[phone] SEC [place] Professional Visual Disturbance OU (chief complaint) No Information 5 Glynn Verdugo. [address], [place], [place], [facility] [place], [place]. tel:[phone] Referring Provider: Kartik Maki MD P, [address], [place], [facility]. tel:[phone] Office/outpa tient Visit, [facility], [address] [place] [address] [address], [place], [place], [address], [place] [phone] SEC [place] Professional redness (chief complaint) No Information 4 Wankum Bradley. [address], [place], [place], [address], [place]. tel:[phone] Referring Provider: Kartik Maki MD P, [address], [place], [place], [facility]. tel:[phone] Office/outpa tient Visit, [facility], [address] [place] [address] [address], [place], [place], [address], [place] tel:[phone] SEC [place] Professional WIE (chief complaint) No Information 4 Wankum Bradley. [address], [place], [place], [address], [place]. tel:[phone] Referring Provider: Kartik Maki MD P, [address], [place], [address]. tel:[phone] Office/outpa tient Visit, [facility], [address], [place], [place], [address], [place] tel:[phone] SEC [place] pain and redness (chief complaint) No Information 3 Samantha Lechuga. [address] [facility], [address], [place], [place], [address], . tel:[phone] Referring Provider: Kartik Maki MD P, [address] [facility] [address], [place], [address]. tel:[phone] Office/outpa tient Visit, [facility], [address] [place] [address] [address], [place], [place], [address], tel:[phone] SEC [place] [address] blurry vision (chief complaint) No Information 3 Samantha Lechuga. [address] [facility], [address], [place], [place], [address], . tel:[phone] Referring Provider: Kartik Maki MD P, [address] [facility] [address], [place], [place], [facility]. tel:[phone] Office/outpa tient Visit, [facility], [address] [place] [address] [address], [place], [place], [address], [place] tel:[phone] SEC Boubacar AMADO Professional a comprehensive exam (chief complaint) No Information 3 Gabino Huerta. [address], [place], [place], [address], . tel:[phone] Referring Provider: Kartik Maki MD P, [address] [facility] [address], [place], [address]. tel:[phone] Office/outpa tient Visit, [facility], [address] [place] [address] [address], [place], [place], [address], [place] tel:[phone] SEC [place] Professional blurry vision (chief complaint) No Information 3 Gabino Huerta. [address] [facility] [place], [address], . tel:[phone] Referring Provider: Kartik Maki MD P, [address], [place], [place], [facility] [place]. tel:[phone] Office/outpa tient Visit, [facility], [address] [place] [address] [address], [place], [place], [address], tel:[phone] SEC [place] Professional 4 day f/u (chief complaint) No Information 3 Gabino Huerta. [address] [facility], [address] [place], [address], . tel:[phone] Referring Provider: Kartik Maki MD P, [address], [place], [place], [facility] [place]. tel:[phone] Office/outpa tient Visit, [facility], [address] [place], [place] [address], [place], [place], [address], tel:[phone] SEC [place] Professional glare (chief complaint) No Information 3 Glynn Verdugo. [address], [place], [address], [place]. tel:[phone] Referring Provider: Jose Ahn MD, [address] [facility] [address], [place], [address]. tel:[phone] Family History Family Member Type Diagnosis Age At Onset Problem (finding) Mother Problem (finding) hypertension Payers Payer name Insurance type Covered constitution party ID Moni adams(s) [facility] CI [id number] Social History Type Description Quantity Date Captured [...] going to see a RA specialist at [facility] on January 12. Patient forgot glasses. [...] OS every 2 waking hours. Erx to [facility]. Return to clinic for follow up or sooner with any problems. Follow up - Return t o clinic for follow up - Discussed diagnosi s with patient start Pred Mild 1gtt ou QID x5 days BID x2-3 days then stop. Return as needed. erx pred mild to [facility]. Related to REDNESS/DISCHARGE OF EYE - as needed Related to REDNE SS/DISCHARGE OF EYE - Reviewed symptoms in detail with patient. No cause for vision loss noted during the exam. Refer patient to port drier Dr Linda Ahn for evaluation and possible [...] 1% 6-8 times per day-she'll see her port drier and get checked for autoimmune dx Related [...]
--- OUTSIDE RECORDS SUMMARY | 2024-08-04 17:41 | XMS_ITS | Data Portability ---
Author Organization [facility] Address [address] [place] [address] [place] [address] Assessment Encounter Date Assessment Date Assessment LastModified by Organization Details LastModified Time 07/28/2024 07/28/2024 Patient is ___weeks . Discussed plan. [email or web address] Not available 07/28/2024 16:54:55 Plan of Treatment [...] ng 16,18/[address]/gc/t rich 2024 025 [facility] (Lab), [address], [place], [address], 08/03/2024 09:45:41 Referral None recorde d. Procedures None recorde d. Surgeries None recorde d. Imaging US, obstetr ic, transva ginal 2024 025 [email or web address] [place], [address], [place], [address], 07/28/2024 18:49:44 Medication Orders None recorde d. [...] t Abnor mal: No Resul ting Lab: [facility] [address] [facility] [address] Tel: CULTU RE ----- ----- ----- --- No growt h in 1 day (dete ction level of 10,00 0 colon ies / ml.) Not Available [facility] (Lab) [address], [place], [address], 07/30/2024 07:11:16 07/29/19 25 07/28/2024 IMAGE GUIDE D PAP, REFLE X HPV IF ASCUS ONLY image guided Pap, reflex HPV ASCUS only SEE RESULT S BELOW CASE REPOR T: Cytol ogy Gynec ologi pravin Repor t Case: [id number] Autho joey curtis Provi teodora: Luc Talbot MD Colle cted: 07/28 1638 Order ing Locat ion: [place] Patho log[facility] Recei julianna: 07/29 0947 First Scree n: Aditi Marquez ay, CT Rescr een: Abiel r, Alicia , CT Speci men: Scree manish Pap - Image d, Cervi x STATE MENT OF ADEQU ACY: Satis facto ry for evalu ation Trans forma tion zone compo nent absen t The absen ce of an endoc ervic al compo nent was confi rmed by an addit ional scree ner. ----- ----- ----- ----- ----- ----- ----- ----- ----- ----- ----- ----- ----- ----- ----- ----- ----- ---- FINAL DIAGN OSIS: Negat sindy for Intra epith elial Lesio n or Nessa hatfield (NIL) . Shift in hunter sugge stive of bacte rial vagin osis. Elect arabella arroyo by Alicia collado, CT on 2024 at 0841 CDT ----- ----- ----- ----- ----- ----- ----- ----- ----- ----- ----- ----- ----- ----- ----- ----- ----- ---- COMME NT: This speci men was revie wed by a Cytot echno logis t and/o r Patho logis t (as indic ated in this repor t) after evalu ation using the Thinp rep Imagi ng Syste m. CLINI PRAVIN INFOR MATIO N: Menst rual Statu s: LMP (if appli cable ): Clini pravin Histo ry/Pr eviou s Pap: Type of Neopl savana (if appli cable ): Signi fican t Clini pravin Findi ngs: Other Histo ry: Hormo maria de jesus (if appli cable ): PAP EDUCA RAMONA L NOTE: The Pap Test is a scree manish test with an inher ent false negat sindy rate. Liqui d-bas ed sampl ing may decre ase, but will not elimi mann, false negat sindy resul ts. A negat sindy resul t does not precl ude the prese nce and/o r devel opmen t of disea se, since the prese nce of abnor mal cells in the sampl e depen ds on the locat ion of the lesio n and sampl ing techn ique. Neisha nued regul ar scree manish is the best metho d of cance r preve ntion . If repor mansoor cytol ogic findi ng do not corre late with physi pravin and/o r histo rical findi ngs, furth er inves tigat ion is recom graciela d, as clini emile philippe nted. Not Available [facility] (Lab) [address], [place], [address], 08/03/2024 09:45:41 07/29/19 25 07/28/2024 TRICH OMONA S VAGIN LEONARDO (RRNA ) trichomonas vaginalis ribosomal RNA (rrna) Negati ve negati ve Not Available [facility] (Lab) [address], [place], [address], 08/03/2024 09:45:42 07/29/19 25 07/28/2024 CT/GC (SIGIFREDO) , THINP REP VIAL chlamydia trachomatis, PCR Negati ve negati ve Not Available [facility] (Lab) [address], [place], [address], 08/03/2024 09:45:42 07/29/19 25 07/28/2024 CT/GC (SIGIFREDO) , THINP REP VIAL neisseria gonorrhoeae, PCR Negati ve negati ve Not Available [facility] (Lab) [address], [place], [address], 08/03/2024 09:45:42 07/29/19 25 07/28/2024 US, obste tric, trans vagin al No observ ation record ed. [email or web address] [place] [address], [place], [address], 07/28/2024 18:46:59 07/29/19 25 07/28/2024 US, obste tric, follo w-up No observ ation record ed. [facility] [address], [place], [address], 08/02/2024 18:25:51 08/05/19 25 08/04/2024 US, obste tric, trans abdom inal + trans vagin al No observ ation record ed. [address] [facility] [address], [place], [address], 08/04/2024 18:35:51 08/05/19 25 08/04/2024 US, obste tric, trans abdom inal + trans vagin al No observ ation record ed. [address] [facility] [address], [place], [address], 08/04/2024 18:35:51 Result Notes None recorded. Problems Name Problem SNOMED Code Status Onset Date Resolution Date Notes Provider Name and Address Organization Details Recorded Time Pelvic and perineal pain 159817639 Active 2016 Pelvic and perineal pain;Recor ded Elsewhere: No Locatio n: [facility] rce: EHR Chroni c: N Practice ID: 0001 Billa ble Time: 11:00:00 AM Not Available [facility] 0 21:35:17 Infection screening Active 2015 Encounter for screening for oth infec/para stc diseases;R ecorded Elsewhere: No Locatio n: [facility] rce: EHR Chroni c: N Practice ID: 0001 Billa ble Time: 03:15:00 PM Not Available [facility] 0 21:35:17 Chlamydia l infection 638249791 Active 2018 Chlamydial infection, unspecifie d;Recorded Elsewhere: No Locatio n: [facility] rce: EHR Chroni c: N Practice ID: 0001 Billa ble Time: 01:45:00 PM Not Available [facility] 0 [facility] Concept Active 2015 Encntr for routine child health exam w/o abnormal findings;R ecorded Elsewhere: No Locatio n: [facility] rce: EHR Chroni c: N Practice ID: 0001 Billa ble Time: 03:15:00 PM Not Available [facility] 0 21:35:17 Insertion of intrauter ine contracep tive device Active 2015 Encounter for insertion of intrauteri ne contracept sindy device;Rec orded Elsewhere: No Locatio n: [facility] rce: EHR Chroni c: N Practice ID: 0001 Billa ble Time: 09:45:00 AM Not Available [facility] 0 21:35:17 Contracep tive sheath status 962146736 Active 2015 Encounter for routine checking of IUD;Record ed Elsewhere: No Locatio n: [facility] rce: EHR Chroni c: N Practice ID: 0001 Billa ble Time: 10:00:00 AM Not Available [facility] 0 21:35:17 Vaginolab ial hernia Active 2015 Other specified noninflamm atory disorders of vagina;Rec orded Elsewhere: No Locatio n: [facility] rce: EHR Chroni c: N Practice ID: 0001 Billa ble Time: 03:15:00 PM Not Available [facility] 0 21:35:17 test negative 295429047 Active 2015 Encounter for test, result negative;R ecorded Elsewhere: No Locatio n: [facility] rce: EHR Chroni c: N Practice ID: 0001 Billa ble Time: 03:15:00 PM Not Available [facility] 0 21:35:17 Removal of intrauter ine device Active 2018 Encounter for removal of intrauteri ne contracept sindy device;Rec orded Elsewhere: No Locatio n: [facility] rce: EHR Chroni c: N Practice ID: 0001 Billa ble Time: 09:09:00 AM Not Available [facility] 0 21:35:[address] Concept Active 2015 Encntr for wire twister exam (general) (routine) w/o abn findings;R ecorded Elsewhere: No Locatio n: [facility] rce: EHR Chroni c: N Practice ID: 0001 Billa ble Time: 03:15:00 PM Not Available [facility] 0 21:35:[address] Concept Active 2018 Encntr for general adult medical exam w/o abnormal findings;R ecorded Elsewhere: No Locatio n: [facility] rce: EHR Chroni c: N Practice ID: 0001 Billa ble Time: 08:30:00 AM Not Available [facility] 0 21:35:18 Evaluatio n finding Active 2017 Hematuria, unspecifie d;Recorded Elsewhere: No Locatio n: [facility] rce: EHR Chroni c: N Practice ID: 0001 Billa ble Time: 08:15:00 AM Not Available [facility] 0 21:35:18 Syphilis test finding 648367333 Active 2015 Encntr screen for infections w sexl mode of transmiss; Recorded Elsewhere: No Locatio n: [facility] rce: EHR Chroni c: N Practice ID: 0001 Billa ble Time: 03:15:00 PM Not Available [facility] 0 21:35:18 Problem Notes None recorded. Procedures Surgical History None recorded. Imaging Results Imaging Date Name Status LastModified by Organization Details LastModified Time 07/28/2024 US, obstetric, transvaginal completed [email or web address] [place] [address], [place], [address], 07/28/2024 18:46:59 07/28/2024 US, obstetric, follow-up completed [email or web address] [address], [place], [address], 08/02/2024 18:25:51 08/04/2024 US, obstetric, transabdominal + transvaginal completed [email or web address], [address], 08/04/2024 18:35:51 08/04/2024 US, obstetric, transabdominal + [facility] [address], [address], 08/04/2024 18:35:51 Procedure Notes None recorded. Medical Equipment None Reported. Allergies No known drug allergies Medications Name Sig Start Date Stop Date Status Note LastModified by Organization Details LastModified Time Metrogel Vaginal 0.75 % (37.5 mg/5 gram) insert 1 applicat orful by vaginal route every day at bedtime 08/07 completed Prescrib ed Elsewher e: No Locat ion: [facility] odify By: ashly Silva nter DateTime : 08/07/19 19 08:30:00 AM Not Available Not Available Not Available Flagyl 500 mg tablet take 1 tablet by oral route every 12 hours 09/16 completed Prescrib ed Elsewher e: No Locat ion: [facility] odify By: amkdionne Das ncounter DateTime : 08/11/19 19 11:10:58 AM Not Available Not Available Not Available cephalexi n 500 mg capsule TAKE 1 CAPSULE BY MOUTH TWICE A DAY FOR 10 DAYS 07/28 completed Not Available Not Available Not Available ibuprofen 200 mg tablet take 1 tablet by oral route every 6 hours as needed with food 07/28 completed Prescrib ed Elsewher e: Yes Loca tion: [facility] odify By: amheena Das ncounter DateTime : 04/11/20 17 11:00:00 [...] Elsewher e: No Locat ion: [facility] odify By: alexia Das ncounter DateTime : 04/11/20 17 11:00:00 AM Not Available Not Available Not Available Zithromax 500 mg tablet take 2 tablet by oral route once 09/16 completed Prescrib ed Elsewher e: No Locat ion: [facility] odify By: amkdionne Das ncounter DateTime : 08/07/19 19 09:09:52 AM Not Available Not Available Not Available Ortho-Cyc arlene (28) 0.25 mg-35 mcg tablet take 1 tablet by oral route every day 09/09 completed Prescrib ed Elsewher e: No [facility] By: [email or web address] tz Encou nter DateTime : 08/07/19 19 08:30:00 AM Not Available Not Available Not Available active Not Available Not Avai lable Not Available Tawanna 14 mcg/24 hr (up to 3 years) 13.5 mg intrauter ine device 08/06 completed Prescrib ed Elsewher e: Yes Loca tion: [facility] das [facility] M odify By: ashly tz Encou nter DateTime : 11/09/19 16 09:45:00 AM Not Available Not Available Not Available Vitals Date Recorded Body weight Systolic blood pressure Diastolic blood pressure Provider Name and Address Organization Details Last Updated DateTime 07/28/2024 162777.56 g 139 mm[Hg] 84 mm[Hg] Katt Perez [facility] 07/28/2024 16:57:36 Social History None recorded. [...] SNOMED-CT Code Diagnosis ICD10 Code Diagnosis Note [id number] Alexus Perkins [place] [address] [address] 07/28/2024 14:57:10 07/28/2024 15:58:50 screening 753487489 Z36.87 Z3A.01 [id number] Nedra Calvert [place] [address] [address] 07/28/2024 15:02:32 07/28/2024 17:37:13 Amenorrhea 39959495 N91.2 this patient is a 24-year-ol d [...] at her next visit. Gynecologi c examination 61938710 Z01.419 Health Concerns Section Related Observation LastModified by Organization Detai ls LastModified Time None Recorded Concern Status LastModified by Organization Details LastModified Time None Recorded Advance Directives Directive None Recorded Payers Encounter Date Sequence Insurance Name Policy Number Policy Cano Covered Member ID Cano Member ID Guarantor Name 07/28/2024 1 [place] [id number] Becky Dinh [id number] Becky Tao 07/28/2024 1 [place] [id number] Becky Dinh [id number] Bekcy Dinh Notes Date Note Type Note Provider Name [...] She was given recommendations on exercise, diet, rkvj-tbd-asaause medications. We reviewed her obstetric history. We reviewed her medical history. We reviewed her social history. She will begin routine care at her next visit. Nedra resendiz, [facility] 07/28/2024 17:55:45 OBGyn Episode Ob Episode Information Episode Created Date Number of Fetuses Patient Bloodtype Patient rh Status Prepregnancy Weight lbs Domestic Partner Domestic Partner Phone Father Name Typewriter Repairer Status 07/29/19 1 CLOSED Fetus Data First Name Last Name Admitted to NICU Weight (g) Sex Living Outcome Pediatric Complications Fetus ID Race Codes Race Delivery Type M Full Term [id number] Vaginal Delivery Matt Calculation Initial Matt Date [...] Post Complications Tubal Sterilization Discharge Date Comments Discharge Information Feeding Method Contraceptive Method Maternal HG B and HCT Levels Ob Episode Information Episode Created Date Number of Fetuses Patient Bloodtype Patient rh Status Prepregnancy Weight lbs Domestic Partner Domestic Partner Phone Father Name Typewriter Repairer Status 07/29/19 1 CLOSED Fetus Data First Name Last Name Admitted to NICU Weight (g) Sex Living Outcome Pediatric Complications Fetus ID Race Codes Race Delivery Type M Full Term [id number] Vaginal Delivery Matt Calculation Initial Matt Date [...]
--- OUTSIDE RECORDS SUMMARY | 2024-08-04 17:41 | XMS_ITS | Clinical Summary ---
Author Organization [facility] Address [address] [place] [address] Phone Care Team Providers Care Scientist/Engineer Name Role Phone Provider, None Primary Care [...] this topic Insurance MEDICAID [place] Care Teams Scientist/Engineer Relationship Specialty Start Date End Date Provider, None [place] PCP - General 11/20/21
--- OUTSIDE RECORDS SUMMARY | 2024-08-04 17:41 | XMS_ITS | Clinical Summary ---
Author Organization [facility] Address [address] [place] [address] Phone Care Team Providers Care Cutter Grinder Name Role Phone Unavailable Primary Care Provider [...] patient's age to complete this topic Insurance [id number] SILVERIO [id number] [place]
== END 2024-08-04 15:52 | disposition home or self-care (01) ==
LOC: ANHIMG 15:53
PROVIDERS: Visit Provider Obstetrics & Gynecology
DX: O20.0 Threatened abortion (principal); Z3A.00 Weeks of gestation of pregnancy not specified
CPT/HCPCS: 76801; 76817

== ENCOUNTER 2025-01-14 18:06 | Outpatient (RCR) | payer BC, OTHER, SELFPAY ==
[2025-01-14 18:54] VITALS: BP 126/76; PULSE 82
== END 2025-04-14 23:59 | disposition home or self-care (01) ==
LOC: ANHOBOP 18:06
PROVIDERS: Visit Provider Obstetrics & Gynecology
DX: O36.8130 Decreased fetal movements, third trimester, not applicable or unspecified (principal); Z3A.30 30 weeks gestation of pregnancy
CPT/HCPCS: 59025

== ENCOUNTER 2025-02-16 08:39 | Outpatient (CLI) | payer OTHER, SELFPAY ==
--- OUTSIDE RECORDS SUMMARY | 2016-03-01 04:45 | XMS_ITS | Continuity of Care Document ---
Author Organization [facility] Address [address] [place] [address] Dr Perdue [address] [place] [phone] Phone Care Team Providers Care Nurse Practitioner Hospitalist Name Role Phone Gabino FERNANDEZ, Bradley Unavailable [...] on Encounter Office/outpa tient Visit, Est [facility], [address] [place] [address] [address], [place], [place], [address], [place] tel:[phone] SEC Boubacar AMADO Professional 1 week follow up (chief complaint) Recurrent iritis of left eye Oct-0 7- 6 Gabino Huerta. [address], [address] [place], [address], [place]. tel:[phone] Referring Provider: Kartik Maki MD P, [address] [facility], [place], [address]. tel:[phone] Office/outpa tient Visit, [facility], [address] [place] [address] [address], [place], [place], [address], [place] tel:[phone] SEC Boubacar AMADO Professional 3 day follow up for acute iridocyclitis (chief complaint) Acute iritis, left eye Sep-2 6 Gabino Huerta. [address], [address] [place], [address], [place]. tel:[phone] Referring Provider: Kartik Maki MD P, [address] [facility], [place], [address]. tel:[phone] Office/outpa tient Visit, [facility], [address] [place] [address] [address], [place], [place], [address], [place] tel:[phone] SEC Boubacar AMADO Professional Pain and redness (chief complaint) No Information Sep-2 6 Gabino Huerta. [address], [place], [place], [address], [place]. tel:[phone] Referring Provider: Kartik Maki MD P, [address] [facility], [place], [address]. tel:[phone] Office/outpa tient Visit, [facility], [address] [place] [address] [address], [place], [place], [address], [place] tel:[phone] SEC [place] Professional Redness and itching (chief complaint) No Information 5 Wankum Bradley. [address], [place], [place], [address], [place]. tel:[phone] Referring Provider: Kartik Maki MD P, [address], [place], [place], [facility]. tel:[phone] Office/outpa tient Visit, [facility], [address] [place] [address] [address], [place], [place], [address], [place] tel:[phone] SEC [place] Professional Visual Disturbance OU (chief complaint) No Information 5 Glynn Verdugo. [address], [place], [place], [facility], [place]. tel:[phone] Referring Provider: Kartik Maki MD P, [address], [place], [place], [facility]. tel:[phone] Office/outpa tient Visit, [facility], [address] [place] [address] [address], [place], [place], [address], [place] [phone] SEC [place] Professional redness (chief complaint) No Information 4 Wankum Bardley. [address], [place], [place], [address], [place]. tel:[phone] Referring Provider: Kartik Maki MD P, [address], [place], [place], [facility]. tel:[phone] Office/outpa tient Visit, [facility], [address] [place] [address] [address], [place], [place], [address], [place] tel:[phone] SEC [place] Professional WIE (chief complaint) No Information 4 Wankum Bradley. [address], [place], [place], [address], [place]. tel:[phone] Referring Provider: Kartik Maki MD P, [address], [place], [address]. tel:[phone] Office/outpa tient Visit, [facility], [address], [place], [place], [address], [place] tel:[phone] SEC [place] No Information 3 Samantha Lechuga. [address] [facility], [address], [place], [address], . tel:[phone] Referring Provider: Kartik Maki MD P, [address] [facility] [address], [place], [address]. tel:[phone] Office/outpa tient Visit, [facility], [address] [place] [address] [address], [place], [place], [address], tel:[phone] SEC Loc [place] No Information 3 Samantha Lechuga. [address] [facility], [address], [place], [place], [address], . tel:[phone] Referring Provider: Kartik Maki MD P, [address] [facility] [address], [place], [address]. tel:[phone] Office/outpa tient Visit, [facility], [address], [place], [place], [address], [place] tel:[phone] SEC [place] Professional No Information 3 Gabino Huerta. [address] [facility], [address], [place], [place], [address], [place]. tel:[phone] Referring Provider: Kartik Maki MD P, [address] [facility] [address], [place], [address]. tel:[phone] Office/outpa tient Visit, [facility], [address], [place], [place], [address], [place] tel:[phone] SEC [place] Professional No Information 3 Gabino Huerta. [address] [facility], [address] [place], [address], . tel:[phone] Referring Provider: Kartik Maki MD P, [address], [place], [place], [facility]. tel:[phone] Office/outpa tient Visit, [facility], [address] [place] [address] [address], [place], [place], [address], tel:[phone] SEC [place] Professional No Information 3 Gabino Huerta. [address] [facility], [address] [place], [place], [address], . tel:[phone] Referring Provider: Kartik Maki MD P, [address], [place], [facility]. tel:[phone] Office/outpa tient Visit, [facility], [address], [place], [place], [address], tel:[phone] SEC [place] Professional No Information 3 Glynn Verdugo. [address] [facility], [address], [place], [facility], . tel:[phone] Referring Provider: Jose Ahn MD, [address] [facility] [address], [place], [address]. tel:[phone] Family History Family Member Type Diagnosis Age At Onset Problem (finding) Mother Problem (finding) hypertension Payers Payer name Insurance type Covered green party ID Moni adams(s) [facility] CI [id number] Social History Type Description Quantity Date Captured [...] going to see a RA specialist at [facility] on January 12. Patient forgot glasses. WIE [...] given Related to Acute iritis, left eye Keratic precipitates of left eye - Educational material provided Related to Keratic precipitates of left eye Impression/Plan - Di scussed diagnosis in detail with patient. Start Pred 1gtt OS every 2 waking hours. Erx to [facility]. Return to clinic for follow up or sooner with any problems. Follow up - Return t o clinic for follow up - Discussed diagnosi s with patient start Pred Mild 1gtt ou QID x5 days BID x2-3 days then stop. Return as needed. erx pred mild to [facility]. Related to REDNESS/DISCHARGE OF EYE - as needed Related to REDNE SS/DISCHARGE OF EYE - Reviewed symptoms in detail with patient. No cause for vision loss noted during the exam. Refer patient to treer Dr Linda Ahn for evaluation and possible [...] 1% 6-8 times per day-she'll see her treer and get checked for autoimmune dx Related [...]
[2025-02-16 09:05] VITALS: BP 127/84; PULSE 82
--- OUTSIDE RECORDS SUMMARY | 2025-02-16 09:06 | XMS_ITS | Clinical Summary ---
Author Organization [facility] Address [address] [place] [address] Phone Care Team Providers Care Snowboarder Name Role Phone Unavailable Primary Care Provider [...] (1 of 3 - 19+ 3-dose series) 12/2016 CERVICAL CANCER SCREENING 2019 HPV/Cotest (21-29) 2019 PAP SMEAR 2019 INFLUENZA VACCINE (#1) 2024 Insurance [id number] SILVERIO [id number] [place]
--- OUTSIDE RECORDS SUMMARY | 2025-02-16 09:06 | XMS_ITS | Data Portability ---
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 Full Term [id number] Vaginal Delivery Matt Calculation Initial Matt Date [...]
--- OUTSIDE RECORDS SUMMARY | 2025-02-16 09:06 | XMS_ITS | Clinical Summary ---
Author Organization [facility] Address [address] [place] [address] Phone Care Team Providers Care Health And Human Performance Professor Name Role Phone Provider, None Primary Care [...] 9:09 AM CDT Height 167.6 cm (5' 6) 11/20/2021 9:09 AM CDT Body Mass Index 37.12 11/20/2021 9:09 AM CDT Plan of Treatment Health Maintenance Due Date Last Done Comments Hepatitis C Virus (HCV) Screening 1998 DTaP/Tdap/Td Immunization (7 - Td or Tdap) 11/08/2018 11/08/2008, 10/20/2003, 06/15/1999, Additional history exists Pap Smear 2019 Influenza Immunization (#1) 2025 SARS-COV-2 Immunization ( season) 2025 Respiratory Syncytial Virus (RSV) Immunization (Adult) (1 [...] this topic Insurance MEDICAID [place] Care Teams Health And Human Performance Professor Relationship Specialty Start Date End Date Provider, None [place] PCP - General 11/20/21
[2025-02-16 09:12] LABS: Hematocrit 31.5 % (37.0-47.0); Hemoglobin 10.0 g/dL (12.0-15.0); Immature Granulocyte Percent A 0.3 % (0-0.5); Lymphocytes Absolute Auto 1.44 K/mm3 (0.9-3.2); Mean Corpuscular HGB Conc 31.7 g/dl (32-36); Mean Corpuscular Hemoglobin 24.6 pg (26-34); Mean Corpuscular Volume 77.4 fl (80-100); Nucleated Red Blood Cells Absolute Auto 0.000 K/mm3 (0.0-0.012); Nucleated Red Blood Cells Perc 0.0 % (0.0-0.2); Platelet Count Result 305 k/mm3 (150-375); Red Blood Count 4.07 M/mm3 (4.2-5.4); White Blood Count 9.7 K/mm3 (4.5-10.0)
[2025-02-16 09:16] VITALS: BP 122/85; PULSE 93
[2025-02-16 09:25] LABS: Total Protein Urine Random 7 mg/dL; Ur Ttl Prot Creatinine Ratio 0.03 mg/mg (0-0.20)
[2025-02-16 09:31] VITALS: BP 118/81; PULSE 90
[2025-02-16 09:33] LABS: Add Urine Microscopic? YES; Appearance Urine Cloudy (Clear); Glucose Urine UA Negative (Negative); Leukocyte Esterase Ur 2+ LEU/UL (Negative); Need Manual Microscopic Reviewed; Nitrate Urine Negative (Negative); Non Pathogenic Casts 0-2; Specific Grav Ur 1.020 (1.001-1.035)
[2025-02-16 09:38] LABS: Alanine Aminotransferase 15 U/L (6-35); Albumin Level 3.5 g/dL (3.5-5.1); Alkaline Phosphatase 157 U/L (38-126); Anion Gap 7 mmol/L (4-12); Aspartate Amino Transferase 22 U/L (14-36); Bilirubin,Total 0.4 mg/dL (0.2-1.3); Blood Urea Nitrogen 7 mg/dL (7-17); Calcium 8.6 mg/dL (8.4-10.2); Carbon Dioxide 21 mmol/L (22-30); Chloride 105 mmol/L (98-107); Estimated Glomerular Filt Rate > 60; Glucose 94 mg/dL (65-110); Potassium 3.9 mmol/L (3.4-5.0); Sodium 133 mmol/L (137-145); Total Protein 6.9 g/dL (6.3-8.2); Uric Acid 3.5 mg/dL (2.5-7.5)
[2025-02-16 09:46] VITALS: BP 118/80; PULSE 90
[2025-02-16] MEDS: ACETAMINOPHEN 500 MG TABLET 1000 MG PO (10:21)
== END 2025-02-16 10:50 | disposition home or self-care (01) ==
LOC: ANHOBOP 08:44 → ANHLDR 08:46
PROVIDERS: Visit Provider Obstetrics & Gynecology
DX: O13.9 Gestational [pregnancy-induced] hypertension without significant proteinuria, unspecified trimester (principal); Z3A.00 Weeks of gestation of pregnancy not specified
CPT/HCPCS: 36415; 59025; 80053; 81001; 82570; 84156; 84550; 85025; 87086; 99199; A9270

== ENCOUNTER 2025-02-24 09:43 | Inpatient (IN) | payer OTHER, SELFPAY ==
--- OUTSIDE RECORDS SUMMARY | 2016-03-01 04:45 | XMS_ITS | Continuity of Care Document ---
Author Organization [facility] Address [address] [place] [address] Dr Perdue [address] [place] [phone] Phone Care Team Providers Care Grommet Machine Operator Name Role Phone Gabino FERNANDEZ, Bradley Unavailable Unavailable Allergies, Adverse Reactions, Alerts Substance Reaction Status Criticality No Known Allergies Active No Inform ation Medications Medication Instructions Dosage Effective Dates (start - stop) Status Comments prednisolone acetate 1 % eye drops,suspension instill 1 drop by ophthalmic route every 2 waking hours into left eye for 5 days - Active Procedures Procedure Date Office/outpatient Visit, Est Office/outpatient Visit, Est Office/outpatient Visit, Est Office/outpatient Visit, Est Office/outpatient Visit, Est No Charge Refraction Visual Field Examination(s) Office/outpatient Visit, Est Office/outpatient Visit, Est Office/outpatient Visit, Est Office/outpatient Visit, Est Office/outpatient Visit, Est Office/outpatient Visit, Est Office/outpatient Visit, Est Office/outpatient Visit, New Advance Directives Directive Yes / No Effective Date File Name No Information Encounters Encounter Description Practice Location Reason(s) For Visit Diagnoses Date Provider Providers Copied on Encounter Office/outpa tient Visit, [facility], [address] [place] [address] [address], [place], [place], [address], [place] tel:[phone] SEC Boubacar AMADO Professional 1 week follow up (chief complaint) Recurrent iritis of left eye Oct-0 7- 6 Gabino Huerta. [address], [address] [place], [address], [place]. tel:[phone] Referring Provider: Kartik Maki MD P, [address] [facility], [place], [address]. tel:[phone] Office/outpa tient Visit, [facility], [address] [place] [address] [address], [place], [place], [address], [place] tel:[phone] SEC Boubacar AMADO Professional 3 day follow up for acute iridocyclitis (chief complaint) Acute iritis, left eye Sep-2 6 Gabino Huerta. [address], [address] [place], [address], [place]. tel:[phone] Referring Provider: Kartik Maki MD P, [address] [employer] [address] [facility], [place], [address]. tel:[phone] Office/outpa tient Visit, [facility], [address] [place] [address] [address], [place], [place], [address], [place] tel:[phone] SEC Boubacar AMADO Professional Pain and redness (chief complaint) No Information Sep-2 6 Gabino Huerta. [address], [place], [place], [address], [place]. tel:[phone] Referring Provider: Kartik Maki MD P, [address] [facility], [place], [address]. tel:[phone] Office/outpa tient Visit, [facility], [address] [place] [address] [address], [place], [place], [address], [place] tel:[phone] SEC [place] Professional Redness and itching (chief complaint) No Information 5 Wankum Bradley. [address], [place], [place], [address], [place]. tel:[phone] Referring Provider: Kartik Maki MD P, [address], [place], [place], [facility]. tel:[phone] Office/outpa tient Visit, [facility], [address] [place] [address] [address], [place], [place], [address], [place] tel:[phone] SEC [place] Professional Visual Disturbance OU (chief complaint) No Information 5 Glynn Verdugo. [address], [place], [place], [facility], [place]. tel:[phone] Referring Provider: Kartik Maki MD P, [address], [place], [place], [facility]. tel:[phone] Office/outpa tient Visit, [facility], [address] [place] [address] [address], [place], [place], [address], [place] [phone] [place] Professional redness (chief complaint) No Information 4 Wankum Bradley. [address], [place], [place], [address], [place]. tel:[phone] Referring Provider: Kartik Maki MD P, [address], [place], [place], [facility]. tel:[phone] Office/outpa tient Visit, [facility], [address] [place] [address] [address], [place], [place], [address], [place] tel:[phone] SEC [place] Professional WIE (chief complaint) No Information 4 Wankum Bradley. [address], [place], [place], [address], [place]. tel:[phone] Referring Provider: Kartik Maki MD P, [address], [place], [address]. tel:[phone] Office/outpa tient Visit, [facility], [address], [place], [place], [address], [place] tel:[phone] SEC [place] No Information 3 Samantha Lechuga. [address] [facility], [address], [place], [address], . tel:[phone] Referring Provider: Kartik Maki MD P, [address] [facility] [address], [place], [address]. tel:[phone] Office/outpa tient Visit, [facility], [address] [place] [address] [address], [place], [place], [address], tel:[phone] SEC Loc [place] No Information 3 Samantha Lechuga. [address] [facility], [address], [place], [place], [address], . tel:[phone] Referring Provider: Kartik Maki MD P, [address] [facility] [address], [place], [address]. tel:[phone] Office/outpa tient Visit, [facility], [address], [place], [place], [address], [place] tel:[phone] SEC [place] Professional No Information 3 Gabino Huerta. [address], [place], [place], [address], [place]. tel:[phone] Referring Provider: Kartik Maki MD P, [address] [facility] [address], [place], [address]. tel:[phone] Office/outpa tient Visit, [facility], [address], [place], [place], [address], [place] tel:[phone] SEC [place] Professional No Information 3 Gabino Huerta. [address] [facility], [address] [place], [address], . tel:[phone] Referring Provider: Kartik Maki MD P, [address], [place], [place], [facility]. tel:[phone] Office/outpa tient Visit, [facility], [address] [place] [address] [address], [place], [place], [address], tel:[phone] SEC [place] Professional No Information 3 Gabino Huerta. [address] [facility], [address] [place], [address], . tel:[phone] Referring Provider: Kartik Maki MD P, [address], [place], [facility]. tel:[phone] Office/outpa tient Visit, [facility], [address], [place], [place], [address], tel:[phone] SEC [place] Professional No Information 3 Glynn Verdugo. [address] [facility], [address], [place], [facility], . tel:[phone] Referring Provider: Jose Ahn MD, [address] [facility] [address], [place], [address]. tel:[phone] Family History Family Member Type Diagnosis Age At Onset Problem (finding) Mother Problem (finding) hypertension Payers Payer name Insurance type Covered democrat ID Moni adams(s) [facility] CI [id number] Social History Type Description Quantity Date Captured Comments Alcohol Use Details No Caffeine Use Details Unknown Tobacco Use Status No Information Smoking Status Never smoker Non-Smoking Tobacco Use Details : No Details Available : No Details Available Sex Female Chief Complaint And Reason For Visit From encounter dated '03/01/2016 09:45'. 1 week follow up (chief complaint). Description: The 15 year 9 month old female presents for 1 weekfollow of Iritis OS. Patient reports OS feels better. Using Pred 1-2 times per day OS. Reason For Referral Reason For Referral No Information History Of Present Illness Encounter Date Complaint History Of Prese nt Illness 1 week follow up The 15 year 9 m onth old female presents for 1 week follow of Iritis OS. Patient reports OS feels better. Using Pred 1-2 times per day OS. 3 day follow up for acute iridocyclitis The 15 year 9 month old female presents for 3 day follow up for acute iridocyclitis OS. Patient is using Pred Q2H OS. Patient states that OS is roseanna feeling better. Patient denies flashes and floaters OU. Pain and redness The 15 year 9 m onth old female presents for Pain and redness OS. Patient states that the pain, redness and photophobia started Friday while at school. She states that she had drops left over from last incident and she used them Q6H, but they did not help (last used yesterday). Redness and itching The 14 year 5 month old female presents for WIE for redness, itching, and pain OS. HX Recurrent Iritis OS and sudden loss of vision OU. Pt states yesterday OS was red nasally and in a few hours all of OS was red. Pt states it is itchy and painful. No gtt. Visual Disturbance OU The 14 yea r 3 month old female presents for evaluation of Visual Disturbance OU. Patient has a HX of Recurrent Iridocyclitis OS. Patient reports that within the last week she has had two episodes where OU vision went completely dark / no vision OU for less than 5 minutes, returning vision was foggy for a short time, and then returned to normal. Patient reports when the episodes happened she was sitting doing homework. Patient has never had episodes like this before. Patient states she gets headaches at times - never migraines- and did not have a headache before, during or after the episodes. redness Patient presents for a 5 day follow up for Iritis OS. Patient is using Pred 1% 1 gtt q2hr while awake. Patient is going to see a RA specialist at [facility] on January 12. Patient forgot glasses. WIE The 13 year 7 mo nth old female presents for a WIE in the left eye. Patient states OS started becoming sensative Friday night. The OS is now red, hurts, and sensative to light. Functional Status Date Functional Assessmen t No Information Instructions Date Instruction Additional Infor radha Impression/Plan - Ir itis resolving OS. Continue Pred BID x 1 week then stop. Instructed patient to return to clinic with any problems or if symptoms persist. Follow up - PRN Recurrent iritis of left eye - Educational material given Related to Recurrent iritis of left eye Follow up - Return i n 1 week with Bradley Lloyd M.D. for follow up exam. Impression/Plan - Re solving Iritis OS. Every 2 hours for 2 days and QID until next appt. Return to clinic in 1 week for follow up or sooner with any problems. Return to school form completed excusing patient from outdoor activities due to photophobic. Acute iritis, left e ye - Educational material given Related to Acute iritis, left eye Follow up - Return t o clinic for follow up Keratic precipitates of left eye - Educational material provided Related to Keratic precipitates of left eye Impression/Plan - Di scussed diagnosis in detail with patient. Start Pred 1gtt OS every 2 waking hours. Erx to [facility]. Return to clinic for follow up or sooner with any problems. - Discussed diagnosi s with patient start Pred Mild 1gtt ou QID x5 days BID x2-3 days then stop. Return as needed. erx pred mild to [facility]. Related to REDNESS/DISCHARGE OF EYE - as needed Related to REDNE SS/DISCHARGE OF EYE - Reviewed symptoms in detail with patient. No cause for vision loss noted during the exam. Refer patient to carpet journeyman Dr Linda Ahn for evaluation and possible referral to neurology. Return to clinic as needed. Letter dictated to Dr Ahn. Related to Sudden loss of vision - as needed Related to Sudde n loss of vision - pred qid for 5 day s then bid for 5 days Related to RECURRENT IRIDOCYCLITIS - prn if eye bothers at all Rela mansoor to RECURRENT IRIDOCYCLITIS - dilated with isopt hyoscinepred 1 % q2h while awake Related to RECURRENT IRIDOCYCLITIS - early next week Related to REC URRENT IRIDOCYCLITIS RECURRENT IRIDOCYCLI TIS OS Resolving - Taper Prednisolone to bid x 4 days the qd x 4 daysReturn i f inflammation returns Return for complete exam Educational materials provided:about today's exam. Related to RECURRENT IRIDOCYCLITIS RECURRENT IRIDOCYCLI TIS OS - Prednisolone 1% 2 drops a minute apart every 2 hours OS today, the qid OS beginning tomorrow.Return to DR Lloyd in 1 week. Educational materials provided:Medication Instruction. Related to RECURRENT IRIDOCYCLITIS iritis os-quiet now- had blood work at drs office-no cause found - pf tid for 5 days then bid for 5 days then d/c Related to Iritis, unspecified - prn Related to Iriti s, unspecified iritis os-slowly imp roving-getting blood work today - pf q3h Related to Iritis, unspecified - 2weeks Related to Iriti s, unspecified iritis os - dilated with isoptohyoscinecont pred 1% 6-8 times per day-she'll see her carpet journeyman and get checked for autoimmune dx Related to Iritis, unspecified - 1week Related to Iriti s, unspecified ACUTE IRIDOCYCLITIS NOS OS - DIFFICULT EXAM DUE TO PHOTOPHOBIA, START PREDNISONE, REPEAT DFE ON FRIDAY. ROS FOR RHEUM AND INFECTIOUS NEGATIVE, LETTER TO [facility], DISCUSSED DX AND TX WITH PATIENT AND MOTHER. Related to ACUTE IRIDOCYCLITIS NOS Assessments Type Assessment Date assessment Recurrent iritis of left eye Feb Patient Care Teams Name Effective Dates (start - stop) Status Members No Information
[2025-02-24] VITALS (63 sets, daily range): BP systolic 101–153; BP diastolic 54–130; PULSE 55–162; RESP 15–16; TEMP 36.3–37.3; O2SAT 84–100; BMI 40.9
[2025-02-24] MEDS: LACTATED RINGERS 1,000 ML 999 ML IV CONT (11:38)
--- OUTSIDE RECORDS SUMMARY | 2025-02-24 11:52 | XMS_ITS | Clinical Summary ---
Author Organization [facility] Address [address] [place] [address] Phone Care Team Providers Care Chemical Processing Laborer Name Role Phone Provider, None Primary Care [...] this topic Insurance MEDICAID [place] Care Teams Chemical Processing Laborer Relationship Specialty Start Date End Date Provider, None [place] PCP - General 11/20/21
--- OUTSIDE RECORDS SUMMARY | 2025-02-24 11:52 | XMS_ITS | Clinical Summary ---
Author Organization [facility] Address [address] [place] [address] Phone Care Team Providers Care Production Control Coordinating Clerk Name Role Phone Unavailable Primary Care Provider [...] SMEAR 2019 INFLUENZA VACCINE (#1) 2024 Insurance [id number] [place] [id number] [place]
[2025-02-24 12:01] LABS: Add Urine Microscopic? YES; Appearance Urine Cloudy (Clear); Glucose Urine UA Negative (Negative); Leukocyte Esterase Ur 2+ LEU/UL (Negative); Need Manual Microscopic Reviewed; Nitrate Urine Negative (Negative); Non Pathogenic Casts 0-2; Specific Grav Ur 1.025 (1.001-1.035)
[2025-02-24 12:39] LABS: Hematocrit 32.8 % (37.0-47.0); Hemoglobin 10.2 g/dL (12.0-15.0); Immature Granulocyte Percent A 0.4 % (0-0.5); Lymphocytes Absolute Auto 1.20 K/mm3 (0.9-3.2); Mean Corpuscular HGB Conc 31.1 g/dl (32-36); Mean Corpuscular Hemoglobin 24.2 pg (26-34); Mean Corpuscular Volume 77.7 fl (80-100); Nucleated Red Blood Cells Absolute Auto 0.000 K/mm3 (0.0-0.012); Nucleated Red Blood Cells Perc 0.0 % (0.0-0.2); Platelet Count Result 289 k/mm3 (150-375); Red Blood Count 4.22 M/mm3 (4.2-5.4); White Blood Count 8.6 K/mm3 (4.5-10.0)
[2025-02-24] MEDS: AMPICILLIN SODIUM 2 GM in SODIUM CHLORIDE 0.9% IV 100 ML 200 ML IVPB (12:41)
[2025-02-24] MEDS: LACTATED RINGERS 1,000 ML 125 ML IV CONT (12:46)
--- NOTE | 2025-02-24 13:04 | PC.NURSE ---
Pre-admission information originally done by Daniele Kauffman RN on 02/23/25 at 1221 was recopied to this chart.
--- NOTE | 2025-02-24 13:18 | WPDHPUPDATE1 ---
History and Physical Update Update Date/Time: 02/24/25 13:18 24-year-old female multi parous female at term in labor. Epidural was placed. Vertex position. Reassuring status. To augment labor with rupture membranes and possibly Pitocin. History and Physical has been reviewed, including an updated exam of the patient. There are NO changes in the patient's condition. Risks, benefits, and alternatives have been discussed and questions answered. Patient agrees to proceed with procedure.
[2025-02-24 13:33] LABS: Syphilis IgG/IgM Antibody Non-Reactive (Nonreactive)
--- NOTE | 2025-02-24 13:44 | P.PNOB_ITS ---
ADMINISTRATIVE SERVICES COORDINATOR - A/P Time Spent With Patient Time: Total time spent is greater than 50% in coordination of care (as documented) at patient's floor/unit and/or counseling patient: Time with patient: less than 15 minutes ADMINISTRATIVE SERVICES COORDINATOR- PN:Subj Post-Op Subjective Date/time seen: 02/24/25 13:44 AROM, clear fluid, 6 cm/90%/minus 3, reassuring status ADMINISTRATIVE SERVICES COORDINATOR - PN: Obj Data Vital Signs Vital Signs: Vital Signs - 24 hr 02/24/25 11:31 02/24/25 11:32 02/24/25 11:37 Pulse Rate 106 H Blood Pressure 129/94 H Pulse Oximetry 98 100 02/24/25 11:42 02/24/25 11:47 02/24/25 11:52 Pulse Rate Blood Pressure Pulse Oximetry 100 97 100 02/24/25 11:57 02/24/25 12:01 02/24/25 12:02 Pulse Rate 86 Blood Pressure 131/87 Pulse Oximetry 99 99 02/24/25 12:07 02/24/25 12:12 02/24/25 12:45 Pulse Rate Blood Pressure Pulse Oximetry 100 100 84 L 02/24/25 12:45 02/24/25 12:47 02/24/25 12:50 Pulse Rate 114 H Blood Pressure 149/86 H Pulse Oximetry 87 L 97 02/24/25 12:51 02/24/25 12:53 02/24/25 12:54 Pulse Rate 90 93 Blood Pressure 146/87 H 144/83 H Pulse Oximetry 100 02/24/25 12:55 02/24/25 12:56 02/24/25 12:58 Pulse Rate 103 H 98 81 Blood Pressure 119/84 101/75 146/89 H Pulse Oximetry 02/24/25 12:59 02/24/25 13:00 02/24/25 13:04 Pulse Rate 92 Blood Pressure 153/97 H Pulse Oximetry 100 100 02/24/25 13:05 02/24/25 13:09 02/24/25 13:10 Pulse Rate 99 100 162 H Blood Pressure 132/94 H 138/100 H 146/98 H Pulse Oximetry 99 02/24/25 13:14 02/24/25 13:19 02/24/25 13:24 Pulse Rate Blood Pressure 153/130 H Pulse Oximetry 100 100 100 02/24/25 13:26 02/24/25 13:27 02/24/25 13:28 Pulse Rate 84 88 Blood Pressure 125/83 140/62 Pulse Oximetry 98 02/24/25 13:32 02/24/25 13:35 02/24/25 13:36 Pulse Rate 99 94 Blood Pressure 140/80 137/110 H Pulse Oximetry 99 02/24/25 13:37 02/24/25 13:42 Pulse Rate Blood Pressure Pulse Oximetry 100 100 Meds/Results Medications: Active Medications Generic Name Dose Route Start Last Admin Trade Name Freq PRN Reason Stop Dose Admin Fentanyl Citrate 50 mcg 02/24/25 12:26 Fentanyl Citrate Inj (*Crx) 100 Mcg/2 Ml Vial IV PUSH Q1H PRN Pain Rated 5 or Less Fentanyl Citrate 100 mcg 02/24/25 12:26 Fentanyl Citrate Inj (*Crx) 100 Mcg/2 Ml Vial IV PUSH Q1H PRN Pain Rated 6 or Greater Lactated Ringer's 1,000 mls @ 125 mls/hr 02/24/25 12:30 Lr - Lactated Ringers Iv IV CONT .Q8H [facility] Oxytocin/Sodium Chloride 30 units in 500 mls @ 999 mls/hr 02/24/25 12:26 Oxytocin 30 Units/Ns 500 Ml IV CONT .Q31M PRN if not received in labor Oxytocin/Sodium Chloride 30 units in 500 mls @ 125 mls/hr 02/24/25 12:26 Oxytocin 30 Units/Ns 500 Ml IV CONT .Q4H PRN if not received in labor Lactated Ringer's 500 mls @ 999 mls/hr 02/24/25 12:26 Lr - Lactated Ringers Iv IV CONT .Q31M PRN see Label Comments Ampicillin Sodium 1 gm/ Sodium 50 mls @ 100 mls/hr 02/24/25 16:30 Chloride IVPB Q4H [facility] Naloxone HCl 0.1 mg 02/24/25 12:26 Naloxone Hcl 0.4 Mg/Ml Vial IV PUSH Q2M PRN Respiratory rate less than 10 Ondansetron HCl 4 mg 02/24/25 12:26 Ondansetron Inj 4 Mg/2 Ml Vial IV PUSH Q6H PRN Nausea And Vomiting Terbutaline Sulfate 0.25 mg 02/24/25 12:26 Terbutaline Sulfate 1 Mg/Ml Vial SUB-Q PRN PRN Tachystole Labs 02/24/25 12:31 Labs: Laboratory Results - last 24 hr 02/24/25 02/24/25 11:39 12:31 WBC 8.6 RBC 4.22 Hgb 10.2 L Hct 32.8 L MCV 77.7 L MCH 24.2 L MCHC 31.1 L RDW 14.0 Plt Count 289 MPV 10.3 Immature Gran % (Auto) 0.4 Neut % (Auto) 79.8 H Lymph % (Auto) 14.0 L [place] % (Auto) 5.3 Eos % (Auto) 0.1 Baso % (Auto) 0.4 Lymph # (Auto) 1.20 [place] # (Auto) 0.5 Eos # (Auto) 0.0 Baso # (Auto) 0.0 Abs Immat Gran (auto) 0.03 Absolute Neuts (auto) 6.8 H Absolute Nucleated RBC 0.000 Nucleated RBC % 0.0 Urine Color Dark yellow Urine Appearance Cloudy H Urine pH 6.5 Ur Specific [place] 1.025 Urine Protein 1+ H Urine Glucose (UA) Negative Urine Ketones Trace H Ur Blood (Man) Negative Urine Nitrate Negative Urine Bilirubin Negative Urine Urobilinogen 1.0 Add Ur Microanalysis Reviewed Leukocyte Esterase Rfl 2+ H Urine RBC 0-2 Urine WBC 0-5 Ur Squamous Epith Cells Moderate Urine Bacteria 1+ H Urine Casts 0-2 Urine Mucus Present Syphilis IgG/IgM Ab Non-reactive Blood Type O Positive Antibody Screen Negative
--- NOTE | 2025-02-24 14:13 | P.PNAN_ITS ---
Anes - Initial Pre Proc Eval Procedure: labor epidural Date/Time: 02/24/25 14:13 Surgeon: Stanley Jensen MD Pre Op Diagnosis: labor pain Pre Op Diagnosis: Contractions Patient Data Age: 24 Gender: F Height: 1.68 m Weight: 115 kg Last Vital Signs Pulse 93 02/24/25 14:00 BP 152/86 H 02/24/25 14:00 Pulse Ox 100 02/24/25 14:12 Allergies Allergy/AdvReac Type Severity Reaction Status Date / Time No Known Allergies Allergy Unknown Verified 02/24/25 11:41 Home Medications ?Medication ?Instructions ?Recorded ?Confirmed ?Type docosahexaenoic acid 200 mg mg PO 02/23/25 History capsule ( DHA) Laboratory Tests 02/24/25 02/24/25 02/24/25 11:39 12:31 13:25 WBC 8.6 K/mm3 (4.5-10.0) RBC 4.22 M/mm3 (4.2-5.4) Hgb 10.2 L g/dL (12.0-15.0) Hct 32.8 L % (37.0-47.0) MCV 77.7 L fl (80-100) MCH 24.2 L pg (26-34) MCHC 31.1 L g/dl (32-36) RDW 14.0 % (11.5-14.5) Plt Count 289 k/mm3 (150-375) MPV 10.3 fl (7.4-10.4) Immature Gran % (Auto) 0.4 % (0-0.5) Neut % (Auto) 79.8 H % (45.5-73.1) Lymph % (Auto) 14.0 L % (18.3-44.2) [place] % (Auto) 5.3 % (2.6-8.5) Eos % (Auto) 0.1 % (0-4.4) Baso % (Auto) 0.4 % (0.2-1.2) Lymph # (Auto) 1.20 K/mm3 (0.9-3.2) [place] # (Auto) 0.5 K/mm3 (0.1-0.6) Eos # (Auto) 0.0 K/mm3 (0-0.3) Baso # (Auto) 0.0 K/mm3 (0.0-0.1) Abs Immat Gran (auto) 0.03 K/mm3 (0.00-0.031) Absolute Neuts (auto) 6.8 H K/mm3 (1.3-6.7) Absolute Nucleated RBC 0.000 K/mm3 (0.0-0.012) Nucleated RBC % 0.0 % (0.0-0.2) Urine Color Dark yellow (Yellow) Urine Appearance Cloudy H (Clear) Urine pH 6.5 (5.0-9.0) Ur Specific [place] 1.025 (1.001-1.035) Urine Protein 1+ H mg/dL (Negative) Urine Glucose (UA) Negative mg/dL (Negative) Urine Ketones Trace H mg/dL (Negative) Ur Blood (Man) Negative (Negative) Urine Nitrate Negative (Negative) Urine Bilirubin Negative (Negative) Urine Urobilinogen 1.0 mg/dL (<2.0) Add Ur Microanalysis Reviewed Leukocyte Esterase Rfl 2+ H QING/UL (Negative) Urine RBC 0-2 /hpf (0-2) Urine WBC 0-5 /hpf (0-3) Ur Squamous Epith Cells Moderate /hpf (Few) Urine Bacteria 1+ H /hpf Urine Casts 0-2 Urine Mucus Present /lpf Syphilis IgG/IgM Ab Non-reactive (Nonreactive) HIV 1&2 Ab/P24 Ag 4thGn Pending Blood Type O Positive Antibody Screen Negative Patient hx anesthesia problems: none Family hx anesthesia problems: none Results Review: All pre-operative results and documents have been reviewed as part of the pre- operative evaluation. [facility] Past Medical History Medical History contractions Round ligament pain No pertinent past medical history Surgical History Surgical History No pertinent past surgical history Family History Family History (Updated 02/23/25 @ 12:27 by Chely Kauffman RN) Mother Colon cancer Hypertension Grandparent Acute myocardial infarction Social History Social History Social History: Non-smoker Smoking status: Never smoker Substance use: never Lack of Transportation: No Lack of Food: Never True Current Housing: I Have Housing Concerned About Future Housing: No Difficulty Paying Gas/Electric Bills: No Difficulty Paying for Meds: No Currently Unemployed: No Education: High School Diploma/GED Difficulty w/ Childcare or Family Care: No Living arrangements: with family Gender identity (if verbalized by the patient): Female Spiritual care concerns: No Anes - Eval Final PreProcedure Day of Procedure 02/24/25 14:13 Patient weight: morbidly obese ASA classification: III Anesthetic plan: proceed Anesthesia type and monitoring: regional epidural and standard monitoring Results Review: All pre-operative results and documents have been reviewed as part of the pre- operative evaluation. Informed Consent: The patient's anesthetic plan and its attendant risks and benefits were discussed with the patient/family/POA. Questions were solicited and answers provided to the satisfaction of the patient/family/POA.
[2025-02-24 14:31] LABS: HIV 1/2 Ab P24 Ag Result Negative (Negative)
[2025-02-24] MEDS: OXYTOCIN 30 UNITS/NS 500 ML 30 UNITS/500 ML BAG 999 UNITS IV CONT (14:37)
--- NOTE | 2025-02-24 14:38 | PM.OBPRVD ---
OB - Vaginal Delivery Note Procedure Delivery date: 02/24/25 Delivery augmentation: Rupture of Membranes Delivery monitor: External FHT and External Uterine Route of delivery: Episiotomy description: None Laceration Description: Perineal - 1st Degree Delivery repair: vicryl Specimen: No Quantitative Blood Loss (ml): 50 Anesthesia type: Epidural Disposition: Floor Complications: No immediate complications
[2025-02-24] MEDS: OXYTOCIN 30 UNITS/NS 500 ML 30 UNITS/500 ML BAG 125 UNITS IV CONT (15:21)
[2025-02-24] MEDS: IBUPROFEN 600 MG TABLET PO ×2 (16:38→23:27)
--- NOTE | 2025-02-24 17:40 | OBPPTRN ---
Patient transferred to post room #292 via wheelchair. Support person present. Oriented to unit, room, information board, rooming in, admission packet and security measures. Patient verbalizes understanding.
[2025-02-24] MEDS: ACETAMINOPHEN 325 MG TABLET 650 MG PO (19:10)
[2025-02-25] MEDS: ACETAMINOPHEN 325 MG TABLET 650 MG PO ×2 (02:42→11:22)
[2025-02-25 05:06] LABS: Hematocrit 28.8 % (37.0-47.0); Hemoglobin 8.7 g/dL (12.0-15.0)
[2025-02-25] MEDS: IBUPROFEN 600 MG TABLET PO ×3 (05:12→17:13)
[2025-02-25] MEDS: DOCUSATE SODIUM 100 MG CAPSULE PO ×2 (07:48→17:13)
--- NOTE | 2025-02-25 08:02 | PM.OBPNVD ---
OB - PN: Subj Subjective Date/time seen: 02/25/25 08:02 Interval history: day 1. Doing well. No complaints. OB - PN: Obj Data Labs 02/25/25 04:09 Labs: Laboratory Results - last 24 hr 02/24/25 02/24/25 02/24/25 11:39 12:31 13:25 WBC 8.6 RBC 4.22 Hgb 10.2 L Hct 32.8 L MCV 77.7 L MCH 24.2 L MCHC 31.1 L RDW 14.0 Plt Count 289 MPV 10.3 Immature Gran % (Auto) 0.4 Neut % (Auto) 79.8 H Lymph % (Auto) 14.0 L [place] % (Auto) 5.3 Eos % (Auto) 0.1 Baso % (Auto) 0.4 Lymph # (Auto) 1.20 [place] # (Auto) 0.5 Eos # (Auto) 0.0 Baso # (Auto) 0.0 Abs Immat Gran (auto) 0.03 Absolute Neuts (auto) 6.8 H Absolute Nucleated RBC 0.000 Nucleated RBC % 0.0 Urine Color Dark yellow Urine Appearance Cloudy H Urine pH 6.5 Ur Specific [place] 1.025 Urine Protein 1+ H Urine Glucose (UA) Negative Urine Ketones Trace H Ur Blood (Man) Negative Urine Nitrate Negative Urine Bilirubin Negative Urine Urobilinogen 1.0 Add Ur Microanalysis Reviewed Leukocyte Esterase Rfl 2+ H Urine RBC 0-2 Urine WBC 0-5 Ur Squamous Epith Cells Moderate Urine Bacteria 1+ H Urine Casts 0-2 Urine Mucus Present Syphilis IgG/IgM Ab Non-reactive HIV 1&2 Ab/P24 Ag 4thGn Negative Blood Type O Positive Antibody Screen Negative 02/25/25 04:09 WBC RBC Hgb 8.7 L Hct 28.8 L MCV MCH MCHC RDW Plt Count MPV Immature Gran % (Auto) Neut % (Auto) Lymph % (Auto) [place] % (Auto) Eos % (Auto) Baso % (Auto) Lymph # (Auto) [place] # (Auto) Eos # (Auto) Baso # (Auto) Abs Immat Gran (auto) Absolute Neuts (auto) Absolute Nucleated RBC Nucleated RBC % Urine Color Urine Appearance Urine pH Ur Specific [place] Urine Protein Urine Glucose (UA) Urine Ketones Ur Blood (Man) Urine Nitrate Urine Bilirubin Urine Urobilinogen Add Ur Microanalysis Leukocyte Esterase Rfl Urine RBC Urine WBC Ur Squamous Epith Cells Urine Bacteria Urine Casts Urine Mucus Syphilis IgG/IgM Ab HIV 1&2 Ab/P24 Ag 4thGn Blood Type Antibody Screen OB - PN A/P Plan day: 1 Plan: routine care Time Spent With Patient Time: Total time spent is greater than 50% in coordination of care (as documented) at patient's floor/unit and/or counseling patient: Review of Systems Review of Systems: All systems reviewed & are unremarkable except as noted in HPI and below Exam Const: General: alert Resp: Effort & Inspection: normal respiratory effort and able to speak in complete sentences Skin: General skin exam: normal color
[2025-02-25 08:15] VITALS: BP 129/73; PULSE 72; RESP 18; TEMP 36.8; O2SAT 99
[2025-02-25 12:52] VITALS: BP 136/82; PULSE 99; RESP 18; TEMP 36.8; O2SAT 99
--- NOTE | 2025-02-25 14:25 | WPDANLDPN2 ---
Anes-Prog Note L&D Date/Time: 02/25/25 14:25 Comfortable throughout: labor and delivery Neuraxial method: epidural Epidural/Spinal procedure site: clean & non-tender Neuro status: Neuro function grossly intact. Cardiovascular status: normal Respiratory status: normal Airway patency: baseline Mental status: baseline Post-Op hydration status: normal Vital Signs: Last Vital Signs Temp 36.8 C 02/25/25 12:52 Pulse 99 02/25/25 12:52 Resp 18 02/25/25 12:52 BP 136/82 02/25/25 12:52 Pulse Ox 99 02/25/25 12:52 O2 Del Method Room Air 02/24/25 19:10 Pain score (VAS): 1 I/O: Intake & Output 02/24/25 02/25/25 02/25/25 23:59 07:59 15:59 Intake Total 480 Balance 480 Post-procedural complaints: none Patient feedback: Patient satisfied with anesthetic care.
[2025-02-25] MEDS: FERROUS SULFATE 325 MG TABLET PO (17:13)
[2025-02-25 20:00] VITALS: BP 127/80; PULSE 100; PULSE 72; RESP 16; TEMP 36.5; O2SAT 100
[2025-02-26 07:57] VITALS: BP 134/90; PULSE 73; RESP 18; TEMP 37; O2SAT 100
[2025-02-26] MEDS: MULTIVIT/MIN/PREN/FOL AC/IRON TABLET 1 TAB PO (08:09)
[2025-02-26] MEDS: FERROUS SULFATE 325 MG TABLET PO (08:09)
[2025-02-26] MEDS: DOCUSATE SODIUM 100 MG CAPSULE PO (08:09)
[2025-02-26] MEDS: ACETAMINOPHEN 325 MG TABLET 650 MG PO (08:15)
--- NOTE | 2025-02-26 09:01 | P.PNOB_ITS ---
OB - PN: Subj Subjective Date/time seen: 02/26/25 09:01 Interval history: day 1. Doing well. No complaints. Patient comments: no complaints, pain well controlled and tolerating diet OB - PN: Obj Data Labs 02/25/25 04:09 OB - PN A/P Plan day: 2 Plan: routine care and discharge home Time Spent With Patient Time: Total time spent is greater than 50% in coordination of care (as documented) at patient's floor/unit and/or counseling patient: Exam 2 Const: General: comfortable and no acute distress Resp: Effort & Inspection: normal respiratory effort Auscultation: no rales, no rhonchi and no wheezes Cardio: Rate: regular rate Heart sounds: no click, no murmurs and no rubs GI: GI Palp: Yes Soft to palpation and No Tenderness to palpation present (GI) Auscultation: normal bowel sounds Extrem: General: normal to inspection, no pedal edema and no calf tenderness
--- NOTE | 2025-02-26 09:01 | P.DS_ITS ---
DS: Admitting Diagnosis Discharge Date 02/26/2025 Admitting Diagnosis Term DS: Discharge Diagnosis Discharge Diagnosis (1) (normal spontaneous vaginal delivery): Code(s): O80 - Encounter for full-term uncomplicated delivery Status: Acute OB - DS: Summary OB Procedures : None OB Procedures Intrapartum: Spontaneous Vag Delivery OB Procedures: : None Peripartum Data Laceration Description: Perineal - 1st Degree Episiotomy description: None Time Spent with Patient Time attestation: Total time spent providing and/or coordinating discharge services: Discharge Plan Discharge Discharging Clinician: Stanley Jensen Patient Disposition: Home Activity: pelvic rest Diet: regular Patient Instructions: Antibiotic Form Patient Language: Armenian Stand Alone Forms: General Discharge Information Follow-up/Referrals: Stanley Jensen MD [Physician, ACCOUNTING CONSULTANT] Discharge Medications: Continued DHA 200 mg capsule PO Date of admission: 02/24/25 12:25 Primary Care Provider: UNKNOWN,DOCTOR Admitting Provider: Stanley Jensen Attending physician on admission: Stanley Jensen Condition: Stable
== END 2025-02-26 12:25 | disposition home or self-care (01) | DRG 560 ==
LOC: ANHOBPP 11:30 → ANHLDR 12:35 → ANHOB2 17:55
PROVIDERS: Admitting Provider Obstetrics & Gynecology; Visit Provider Obstetrics & Gynecology
DX: O60.14X0 Preterm labor third trimester with preterm delivery third trimester, not applicable or unspecified (principal); Z37.0 Single live birth; Z3A.36 36 weeks gestation of pregnancy; O70.0 First degree perineal laceration during delivery
CPT/HCPCS: 36415; 81001; 85014; 85018; 85025; 86593; 86703; 86850; 86900; 86901; A9270; G0378; G0379; G0432; J0290; J2590; J2795; J7120

== ENCOUNTER 2025-05-04 00:40 | Day surgery (SDC) | payer OTHER, SELFPAY ==
[2025-04-28 15:17] VITALS: BMI 37.1
--- NOTE | 2025-05-02 08:37 | PC.NURSE ---
[facility] has started construction of its new state of the art ER which will open Spring 2026. With this, we anticipate parking may be a challenge for some our surgical patients and families. Parking spaces are limited but are available for all Surgical, obstetrics, and ER patients sharing this lot. If you arrive and find you are having a hard time finding a parking space, please note that we understand the challenges, please drive around the hospital and park near Hospital Entrance 1. When you enter this entrance, you can ask a volunteer to direct or take you back to the surgical waiting area to check in. We appreciate everyone?s understanding of these expected challenges while we build for your future. Report to the Outpatient Waiting Room, entrance under the green pavilion located off [address], at time 0700AM on date 05/04/25 . Planned Procedure Time: _0900AM .? Time changes happen often and if your time is changed the preop area will call you the afternoon before. - You and your visitor will be asked to self-screen and do not enter if you have any COVID symptoms. Please call surgeon if you need to reschedule. - A mask is optional within the hospital at this time. Patients may have clear liquids (water, carbonated beverages, clear teas, apple juice) until 3 hours prior to surgery( 0600AM) with a maximum of 20 ounces. - No food from midnight until time of surgery and no smoking, or chewing tobacco (or any form of nicotine). No chewing gum, candy or mints. Take only the following medications with a SIP of water on the morning of surgery: ___N/A DO NOT STOP ANY OF YOUR OTHER PRESCRIPTION MEDICATIONS PRIOR TO SURGERY EXCEPT THE FOLLOWING Hold all vitamins and supplements for 3 days per anesthesiologist. Medications to discontinue per physician N/A Date to take last dose Please no make-up, nail hungarian, hairspray, perfume, deodorant, or body powder the day of surgery.? No jewelry (including any body piercings) or valuables the day of surgery, leave them at home.? Please take a shower or bath the night before, or the morning of, surgery with an antibacterial soap.? Wear comfortable, loose fitting clothing.? - Jewelry must be removed prior to entering the operating room.? Rings and piercings that are not removed may be cut off. - The hospital will not accept responsibility for valuables.? - Please leave all valuables, including medications, at home the day of surgery. If you are going home after surgery, a licensed auto haulaway driver must drive you home.? - NO public transportation without another adult if you receive anesthesia. - We recommend that an adult stay with you for 24 hours following discharge. - We also recommend that you do not drive, make important decision, drink alcoholic beverages, or take any drugs that were not prescribed by your health care provider for at least 24 hours after your discharge time. Follow any additional instructions given to you from your surgeon. Telephone instructions given to ___KAREN and asked if any additional questions and then verbalized understanding. Patient advised to call surgeon office or pre surgery nurse liaison [phone] if any additional questions.
[2025-05-04] VITALS (8 sets, daily range): BP systolic 104–131; BP diastolic 62–86; PULSE 70–100; RESP 8–16; TEMP 36.3–36.6; O2SAT 98–100; BMI 39.3
--- OUTSIDE RECORDS SUMMARY | 2025-05-04 00:43 | XMS_ITS | Data Portability ---
Author Organization [facility] Address [address] [place] [address] Assessment Encounter Date Assessment Date Assessment LastModified by Organization Details LastModified Time 12/30/2024 12/30/2024 Patient is ___weeks . Discussed plan. Not available 12/30/2024 16:27:44 01/21/2025 01/21/2025 Patient is ___weeks . Discussed plan. [email or web address] Not available 01/21/2025 09:57:20 02/04/2025 02/04/2025 Patient is ___weeks . Discussed plan. Not available 02/04/2025 10:21:26 02/18/2025 02/18/2025 Patient is ___weeks . Discussed plan. Not available 02/18/2025 11:58:16 Plan of Treatment Reminders Order Date Submit Date Provider Last Modified By Organization Details Last Modified Time Details Appointments SURG Salpingec kiran 2024 09:00A Edel JENSEN MD Not available Not available Not available SURG POST OP 2024 09:45A Edel JENSEN MD Not available Not available Not available [facility] 2025 08:30A MICHELLE Waterman Not available Not available Not available Lab None recorded. Referral None recorded. Procedures None recorded. Surgeries None recorded. Imaging None recorded. Medication Orders None recorded. Patient TargetsNo targets recorded. Patient InstructionsNo instructions recorded. Reason for Referral None Reported. Results Created Date Observation Date Name Description Value Unit Range Abnormal Flag Note LastModifiedBy Organization Detail LastModifiedTime 12/31/19 25 12/30/2024 HEMOG LOBIN (HGB) HGB 10.4 g/dL (based on docume nted legal sex) 11.6-1 5.4 low Not Available [facility] (Lab) [address] [facility], [place], [address], 12/31/2024 06:29:20 12/31/19 25 12/30/2024 HEMAT OCRIT (HCT) HCT 32.6 % (based on docume nted legal sex) 34.0-4 5.0 low Not Available [facility] (Lab) [address] [facility], [place], [address], 12/31/2024 06:29:20 12/31/19 25 12/30/2024 GTT - GESTA RAMONA L SCREE N, ACOG OB glucose, 1 hour screen 145 mg/dL 70-135 high Not Available [facility] (Lab) [address] [place], [address], 12/31/2024 06:29:21 01/08/20 25 01/07/2025 GTT - GESTA RAMONA L, 3 HOUR, ACOG glucose, fasting acog 76 mg/dL 70-94 Not Available [facility] (Lab) [address] [place], [address], 01/08/2025 05:01:37 01/08/20 25 01/07/2025 GTT - GESTA RAMONA L, 3 HOUR, ACOG glucose, 1 hour acog 143 mg/dL 70-179 Not Available [facility] (Lab) [address] [place], [address], 01/08/2025 05:01:37 01/08/20 25 01/07/2025 GTT - GESTA RAMONA L, 3 HOUR, ACOG glucose, 2 hour acog 137 mg/dL 70-154 Not Available [facility] (Lab) [address] [place], [address], 01/08/2025 05:01:37 01/08/20 25 01/07/2025 GTT - GESTA RAMONA L, 3 HOUR, ACOG glucose, 3 hour acog 67 mg/dL 70-139 low Not Available [facility] (Lab) [address], [place], [address], 01/08/2025 05:01:37 12/04/19 25 12/03/2024 , obste tric, follo w-up No observ ation record ed. [facility] [address], [place], [address], 12/03/2024 13:30:04 12/04/19 25 12/03/2024 US, obste tric, follo w-up No observ ation record ed. [email or web address] [facility] [address], [place], [address], 12/05/2024 21:27:02 01/15/20 25 01/14/2025 non-s tress test No observ ation record ed. [address] [facility], [place], [address], 01/19/2025 12:09:24 02/17/20 25 02/16/2025 non-s tress test No observ ation record ed. [address] [facility], [place], [address], 02/24/2025 09:03:15 Result Notes None recorded. Problems Name Problem SNOMED Code Status Onset Date Resolution Date Notes Provider Name and Address Organization Details Recorded Time Gestatio nal diabetes mellitus 07461798 Completed Historic al Insulin Dependen t - to have early testing Stanley Jensen MD [address], [place], [address], [facility] 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 S ource: EHR Perianesthesia Rn irene: N Merlin ce ID: [id number] Cristhian lable Time: 01:45:00 PM Not Available [facility] 0 21:35:17 Pregnanc y 20701429 Completed 202403/24/2025 Gabriela Booker [facility], [facility] 5 11:46:12 Erythema nodosum [id number] Completed 2024 restrict ed to pregnanc y, given supporti ve care recommen dations. Stanley Jensen MD [address], [place], [address], [facility] 5 14:46:51 Problem Notes None recorded. Procedures Surgical History Date Name Laterality Status Provider Name and Address Organization Details Recorded Time 5 Date of Last Pap Smear completed Gabriela Booker [facility] 08/11/2024 15:13:33 4 termination of completed Gabriela [facility] 08/11/2024 15:17:45 Imaging Results None recorded. Procedure Notes None recorded. Medical Equipment None Reported. Allergies No known drug allergies Medications Name Sig Start Date Stop Date Status Note LastModified by Organization Details LastModified Time Metrogel Vaginal 0.75 % (37.5 mg/5 gram) insert 1 applicat orful by vaginal route every day at bedtime 08/07 completed Prescrib ed Elsewher e: No [facility] By: ashly tz Encou nter DateTime : 08/07/19 08:30:00 AM Not Available Not Available Not Available Flagyl 500 mg tablet take 1 tablet by oral route every 12 hours 09/16 completed Prescrib ed Elsewher e: No [facility]at [facility] By: eliot Das ncounter DateTime : 08/11/19 11:10:58 AM Not Available [...] e: Yes Loca tion: Viraj das [facility] odify By: eliot mercado DateTime : 04/11/20 17 11:00:00 AM Not Available Not Available Not Available mupirocin 2 % topical ointment APPLICAT ION SITE: APPLY TO AFFECTED AREA TWICE DAILY FOR 7 DAYS 07/28 completed Not Available Not Available Not Available Bactrim DS 800 mg-160 mg tablet take 1 tablet by oral route every 12 hours 08/06 completed Prescrib ed Elsewher e: No Locat ion: Viraj das [facility] odify By: alexia osoriountkassy DateTime : 04/11/20 17 11:00:00 AM Not Available Not Available Not Available Zithromax 500 mg tablet take 2 tablet by oral route once 09/16 completed Prescrib ed Elsewher e: No Locat ion: Viraj das [facility] odify By: eliot osoriountkassy DateTime : 08/07/19 19 09:09:52 AM Not Available Not Available Not Available Ortho-Cyc arlene (28) 0.25 mg-35 mcg tablet take 1 tablet by oral route every day 09/09 completed Prescrib ed Elsewher e: No Locat ion: Viraj das [facility] odify By: ashly Silva nter DateTime : 08/07/19 19 08:30:00 AM Not Available Not Available Not Available active Not Available Not Avai lable Not Available Tawanna 14 mcg/24 hr (up to 3 years) 13.5 mg intrauter ine device 08/06 completed Prescrib ed Elsewher e: Yes Loca tion: Viraj das [facility] odify By: ashly Silva nter DateTime : 11/09/19 16 09:45:00 AM Not Available Not Available Not Available Vitals Date Recorded Body weight Systolic And Diastolic Provider Name and Address Organization Details Last Updated DateTime 12/30/2024 554580.54422 g 135/82 mm[Hg] Gabriela Kimer [facility] 12/30/2024 16:29:14 Date Recorded Body height Body mass index (BMI) Body weight Systolic And Diastolic Provider Name and Address Organization Details Last Updated DateTime 01/21/2025 167.64 cm 40.9 kg/m2 533501.03 g 129/80 mm[Hg] Nedra Calvert [facility] 01/21/2025 10:01:32 Date Recorded Body height Body mass index (BMI) Body weight Systolic And Diastolic Provider Name and Address Organization Details Last Updated DateTime 02/04/2025 167.64 cm 40.8 kg/m2 737538.87 g 123/80 mm[Hg] Gabriela Jhony [facility] 02/04/2025 10:23:09 Date Recorded Body weight Systolic And Diastolic Provider Name and Address Organization Details Last Updated DateTime 02/18/2025 279520.34666 g 122/87 mm[Hg] Gabriela [facility] 02/18/2025 11:58:45 Date Recorded Body weight Body mass index (BMI) Body height Systolic And Diastolic Provider Name and Address Organization Details Last Updated DateTime 03/24/2025 280755.79 932 g 38.1 kg/m2 167.64 cm 121/82 mm[Hg] Gabriela [facility] 03/24/2025 11:44:57 Social History Question Answer Notes LastModified by Organizat ion Details LastModified Time Tobacco Smoking Status Never Smoker Gabrielaabbey Kimer [facility] 08/11/2024 15:17:19 In The 14 Days [...] Functional Status Question Answer Note LastModified by Organizat ion Details LastModified Time Do you use any [...] of Flow (days) 6 Current Control Method None Are cycles usually normal Y Frequency of Cycle (Q days) 28 Sexually Active? Y Menses Monthly Y Age of first menstrual cycle 10 Date of Last Pap Smear 07/28/2024 Sexual Problems? N Desired Control Method Sterilizati on LMP Unknown Obstetrics History GPAL:G 4 P 3 0 1 3 Type Value Full Term 3 Induced 1 Living 3 Total 4 Past Encounters Encounter ID Performer Location Encounter Start Date Encounter Closed Date Diagnosis/Indication Diagnosis SNOMED-CT Code Diagnosis ICD10 Code Diagnosis IMO Codes Diagnosis Note [id number] Stanley Jensen MD [place] [address],[place] [address] 07/28/2024 14:57:10 07/28/2024 15:58:50 screening 007286089 Z36.87 Z3A.01 [id number] Stanley Jensen MD [place] [address],[place] [address] 07/28/2024 15:02:32 07/28/2024 17:37:13 Amenorrhea 43182586 N91.2 this patient is a 24-year-ol d [...] at her next visit. Gynecologi c examination 43496369 Z01.419 [id number] Stanley Jensen MD [place] [address],[place] [address] 08/11/2024 14:11:52 08/11/2024 15:02:25 [id number] Stanley Jensen MD [place] [address],[place] [address] 08/11/2024 14:12:30 08/11/2024 15:38:39 Amenorrhea 93861216 N91.2 this patient is a 24-year-ol d [...] begin routine care at her next visit. [id number] Stanley Jensen MD [place] [address],[place] [address] 09/06/2024 09:14:22 09/06/2024 10:02:44 screening 998985031 Z36.82 Z3A.11 [id number] MD Eugene Reddy [address],[place] [address] 09/06/2024 09:14:31 09/06/2024 11:19:23 Routine care 936311009 Z34.91 Gestation period, 12 weeks 54956185 Z3A.12 [id number] MD Eugene Reddy [address],[place] [address] 10/04/2024 13:52:17 10/04/2024 14:55:13 care status 503489164 Z34.82 [id number] JAYSON BLANC MD [place] [address],[place] [address] 11/05/2024 09:20:13 11/05/2024 10:37:18 Ultrasound scan - obstetric 019721249 Z36.3 O99.210 Z3A.20 [id number] JAYSON BLANC MD [place] [address],[place] [address] 11/05/2024 09:20:46 11/05/2024 11:22:17 Past history of gestational diabetes mellitus 390571463 O09.299 Z86.32 7628656 - GDMA2 in both prior deliveries - early 1h GTT today Gestation period, 20 weeks 69246991 Z3A.20 2147221 - anatomy incomplete , repeat in 4 weeks [id number] MD Eugene Reddy [address],[place] [address] 12/03/2024 09:55:55 12/03/2024 10:55:10 anatomy study 003371231 Z36.2 Z3A.24 [id number] Ligia [facility]win [facility] [address],[place] [address] 12/03/2024 09:56:12 12/03/2024 11:17:24 Gestation period, 24 weeks 035837128 Z3A.24 6936531 [id number] Stanley Jensen MD [place] [address],[place] [address] 12/30/2024 16:08:22 12/30/2024 17:19:41 care status 503625629 Z34.83 [id number] MD Eugene Reddy [address],[place] [address] 01/21/2025 09:55:09 01/21/2025 10:41:39 care status 134540623 Z34.83 89708614 [id number] Stanley Jensen MD [place] [address],[place] [address] 02/04/2025 10:04:36 02/04/2025 11:05:58 care status 391511324 Z34.83 [id number] Stanley Jensen MD [place] [address],[place] [address] 02/18/2025 11:14:51 02/18/2025 12:39:27 care status 401156352 Z34.83 [id number] MD Eugene Reddy [address],[place] [address] 03/24/2025 11:32:26 03/24/2025 12:04:35 state 30577543 Z39.2 [id number] This patient is a 24-year-ol d female who presents for care. Her baby is bottle feeding. Her baby is doing very well. Her mood is good. She has not had intercours e. Her bleeding is resolved. contracept ion - salpingect jessica. F/U in 3 months Health Concerns Section Related Observation LastModified by Organization Detai ls LastModified Time None Recorded Concern Status LastModified by Organization Details LastModified Time None Recorded Advance Directives Directive None Recorded Payers Insurance Date Sequence Insurance Name Policy Number Policy Cano Covered Member ID Cano Member ID Guarantor Name 09/01/2024 1 [place] [id number] Becky Tao [id number] Becky Ariella Tao 07/28/2024 2 [place] [facility] Becky Dinh [id number] Becky L Dinh 07/28/2024 2 [facility] (O) [id number] Becky Dinh [id number] Becky L Dinh 05/01/2025 1 [facility] (MEDICAID HMO) [id number] Becky L Dinh [id number] Becky L Dinh 11/03/2024 1 [place] [facility] Becky L Dinh [id number] Becky L Dinh Notes Date Note Type Note Provider Name and Address Organization Details Recorded Time 12/30/2024 text/html Generic HPI TemplateReported by Patient Stanley Jensen MD [address], [place], [address], [facility] 12/30/2024 17:15:55 01/21/2025 text/html Generic HPI TemplateReported by Patient Stanley Jensen MD [address], [place], [address], [facility] 01/21/2025 10:41:03 02/04/2025 text/html Generic HPI TemplateReported by Patient Stanley Jensen MD [address], [place], [address], [facility] 02/04/2025 10:59:59 02/18/2025 text/html Generic HPI TemplateReported by Patient Stanley Jensen MD [address], [place], [address], [place] [facility] 02/18/2025 12:31:56 03/24/2025 text/html VisitReported by Patient This patient is a 24-year-old female who presents for care. Her baby is bottle feeding. Her baby is doing very well. Her mood is good. She has not had intercourse. Her bleeding is resolved. contraception - salpingectomy. F/U in 3 months Stanley Jensen MD [address], [place], [address], [place] [facility] 03/24/2025 12:02:38 OBGyn Episode Ob Episode Information Episode Created Date Number of Fetuses Patient Bloodtype Patient rh Status Prepregnancy Weight lbs Domestic Partner Domestic Partner Phone Father Name Slot Floor Supervisor Status 08/12/19 25 1 CLOSED Fetus Data First Name Last Name Admitted to NICU Weight (g) Sex Living Outcome Pediatric Complications Fetus ID Race Codes Race Delivery Type , Induced 63190 Matt Calculation Initial Matt Date Initial Exam [...] Domestic Partner Domestic Partner Phone Father Name Slot Floor Supervisor Status 07/29/19 25 1 CLOSED Fetus Data First Name Last Name Admitted to NICU Weight (g) Sex Living Outcome Pediatric Complications Fetus ID Race Codes Race Delivery Type M Full Term 10990 Vaginal Delivery Matt Calculation Initial Matt Date [...] Domestic Partner Domestic Partner Phone Father Name Slot Floor Supervisor Status 09/07/19 25 1 O Positive 234 Sukhwinder CLOSED Fetus Data First Name Last Name Admitted to NICU Weight (g) Sex Living Outcome Pediatric Complications Fetus ID Race Codes Race Delivery Type false 3090.09 55 F true Full Term 14661 Vaginal Delivery Problems Problem Notes Synechiae baby moves freely Problem Name Start Date End Date Resolution Snomed Code Not e Gestational diabetes mellitus 13572050 Historical Insu dameon Dependent - to have early testing Erythema nodosum 10/04/2024 34121686 re stricted to , given supportive care [...] Weight in lbs Pre/Post Dialysis Refused Weight 240.671598367250 BP Diastolic BP Location Tested BP Systolic [...] Weight in lbs Pre/Post Dialysis Refused Weight 246.739299154502 BP Diastolic BP Location Tested BP Systolic [...] Weight in lbs Pre/Post Dialysis Refused Weight 245.679442228778 BP Diastolic BP Location Tested BP Systolic [...] Type Weight in lbs Pre/Post Dialysis Refused 248.093556092109 BP Diastolic BP Location Tested BP Systolic [...] Type Weight in lbs Pre/Post Dialysis Refused 251.20294808971 BP Diastolic BP Location Tested BP Systolic [...] Weight in lbs Pre/Post Dialysis Refused Weight 253.275614361887 BP Diastolic BP Location Tested BP Systolic [...] Weight in lbs Pre/Post Dialysis Refused Weight 253.257178724211 BP Diastolic BP Location Tested BP Systolic BP Type 80 L arm 123 sitting Fetus Heart Rate Present A 142 Present Fetus Movement A Yes Comments no complaints, no problems, routine care, no contractions, no vaginal bleeding, no loss of fluid, no cramping Flowsheet Date 02/18/2025 Jhaveri Score Blood Edema Fundus Height Fundus Units Glucose Ketones Leukocytes Nitrite Labor Signs Protein Cervic Dilation Cervic Effacement Cervic Station Type Weight in lbs Pre/Post Dialysis Refused 254.244614617518 BP Diastolic BP Location Tested BP Systolic BP Type 87 L arm 122 sitting Fetus Heart Rate Present A 144 Present Fetus Movement A Yes Comments no complaints, no problems, routine care, no contractions, no vaginal bleeding, no loss of fluid, no cramping Flowsheet Date 03/24/2025 Jhaveri Score Blood Edema Fundus Height Fundus Units Glucose Ketones Leukocytes Nitrite Labor Signs Protein Cervic Dilation Cervic Effacement Cervic Station Type Weight in lbs Pre/Post Dialysis Refused 236.681071669025 BP Diastolic BP Location Tested BP Systolic BP Type 82 L arm 121 sitting Fetus Heart Rate Present Fetus Movement Comments Menstrual History Last Menstrual Date Menses Monthly On Bcp Conception Prior Menses Frequency Hcg Plus Date Menarche Onset Age true Delivery Information Delivery Date Delivery Type Labor Anesthesia Weeks Gestation Incision Type Labor Labor Length Hrs Delivered By Post Complications Tubal Sterilization Discharge Date Comments 5 36.1 true None false Discharge Information Feeding Method Contraceptive Method Maternal HG B and HCT Levels Ob Episode Information Episode Created Date Number of Fetuses Patient Bloodtype Patient rh Status Prepregnancy Weight lbs Domestic Partner Domestic Partner Phone Father Name Slot Floor Supervisor Status 07/29/19 25 1 CLOSED Fetus Data First Name Last Name Admitted to NICU Weight (g) Sex Living Outcome Pediatric Complications Fetus ID Race Codes Race Delivery Type M Full Term 25466 Vaginal Delivery Matt Calculation Initial Matt Date [...]
--- OUTSIDE RECORDS SUMMARY | 2025-05-04 00:43 | XMS_ITS | Continuity of Care Document ---
Author Organization [facility] Address [address] [place] [address] Assessment No assessment recorded. Plan of Treatment Reminders Order Date Submit Date Provider Last Modified By Organization Details Last Modified Time Details Appointments SURG Salpingec kiran 2024 09:00A Edel TALBOT MD Not available Not available Not available SURG POST OP 2024 09:45A Edel TALBOT MD Not available Not available [...] Abnormal Flag Note LastModifiedBy Organization Detail LastModifiedTime 09/07/1909/06/2024 CULTU RE: URINE result report SEE RESULT S BELOW Test: Cultu re: Urine Speci men Sourc e: Urine - Clean Catch Speci men Type: Urine Speci men Date: 2024 1416 Resul t Date: 2024 2137 Resul t Statu s: Final resul t Abnor mal: No Resul ting Lab: [facility] [address] [facility] [address] Tel: CULTU RE ----- ----- ----- --- No growt h in 1 day (dete ction level of 10,00 0 colon ies / ml.) Not Available [facility] (Lab) [address], [place], [address], 09/07/2024 22:41:47 09/07/19 25 09/06/2024 drug scree n, urine Amphetamines : negati ve Not Available [facility] [address], [place], [address], 09/06/2024 15:16:04 09/07/19 25 09/06/2024 drug scree n, urine Cannabinoids : negati ve Not Available [facility] [address], [place], [address], 09/06/2024 15:16:04 09/07/19 25 09/06/2024 drug scree n, urine Cocaine: negati ve Not Available [facility] [address], [place], [address], 09/06/2024 15:16:04 09/07/19 25 09/06/2024 drug scree n, urine Opiates: negati ve Not Available [facility] [address], [place], [address], 09/06/2024 15:16:04 09/07/19 25 09/06/2024 drug scree n, urine Phenocyclidi ne: negati ve Not Available [facility] [address], [place], [address], 09/06/2024 15:16:04 09/07/19 25 09/06/2024 drug scree n, urine Barbiturates : negati ve Not Available [facility] [address], [place], [address], 09/06/2024 15:16:04 09/07/19 25 09/06/2024 drug scree n, urine Benzodiazepi maria de jesus: negati ve Not Available [facility] [address], [place], [address], 09/06/2024 15:16:04 09/07/19 25 09/06/2024 drug scree n, urine Ethanol: negati ve Not Available [facility] [address], [place], [address], 09/06/2024 15:16:04 09/07/19 25 09/06/2024 drug scree n, urine Hallucinogen s: negati ve Not Available [facility] [address], [place], [address], 09/06/2024 15:16:04 09/07/19 25 09/06/2024 drug scree n, urine Inhalants: negati ve Not Available [facility] [address], [place], [address], 09/06/2024 15:16:04 09/07/19 25 09/06/2024 drug scree n, urine Anabolic Steroids: negati ve Not Available [facility] [address], [place], [address], 09/06/2024 15:16:04 09/07/19 25 09/06/2024 drug scree n, urine Other: negati ve Not Available [facility] [address], [place], [address], 09/06/2024 15:16:04 11/06/19 25 11/05/2024 GTT - GESTA RAMONA L SCREE N, ACOG OB glucose, 1 hour screen 124 mg/dL 70-135 Not Available [facility] (Lab) [address], [place], [address], 11/06/2024 13:44:23 11/06/19 25 11/05/2024 HIV 1/2 ANTIG EN/AN TIBOD Y, REFLE X CONFI RMATI ON HIV antigen/anti body Nonrea ctive nonrea ctive HIV-1 antig en and HIV-1 /HIV- 2 antib odies were not detec mansoor. No labor atory evide nce of HIV infec tion. Not Available [facility] (Lab) [address] [facility], [place], [address], 11/06/2024 13:44:23 11/06/19 25 11/05/2024 HEMOG LOBIN (HGB) HGB 10.3 g/dL (based on docume nted legal sex) 11.6-1 5.4 low Not Available [facility] (Lab) [address] [facility], [place], [address], 11/06/2024 13:44:24 11/06/19 25 11/05/2024 HEMAT OCRIT (HCT) HCT 32.0 % (based on docume nted legal sex) 34.0-4 5.0 low Not Available [facility] (Lab) [address] [place], [address], 11/06/2024 13:44:24 11/06/19 25 11/05/2024 RPR SCREE N, REFLE X TITER /CONF IRMAT ION RPR qualitative Nonrea ctive nonrea ctive Not Available [facility] (Lab) [address] [place], [address], 11/06/2024 13:44:24 12/31/19 25 12/30/2024 HEMOG LOBIN (HGB) HGB 10.4 g/dL (based on docume nted legal sex) 11.6-1 5.4 low Not Available [facility] (Lab) [address] [place], [address], 12/31/2024 06:29:20 12/31/19 25 12/30/2024 HEMAT OCRIT (HCT) HCT 32.6 % (based on docume nted legal sex) 34.0-4 5.0 low Not Available [facility] (Lab) [address] [place], [address], 12/31/2024 06:29:20 12/31/19 25 12/30/2024 GTT - GESTA RAMONA L SCREE N, ACOG OB glucose, 1 hour screen 145 mg/dL 70-135 high Not Available [facility] (Lab) [address] [facility], [place], [address], 12/31/2024 06:29:21 01/08/20 25 01/07/2025 GTT - GESTA RAMONA L, 3 HOUR, ACOG glucose, fasting acog 76 mg/dL 70-94 Not Available [facility] (Lab) [address] [facility], [place], [address], 01/08/2025 05:01:37 01/08/2001/07/2025 GTT - GESTA RAMONA L, 3 HOUR, ACOG glucose, 1 hour acog 143 mg/dL 70-179 Not Available [facility] (Lab) [address] [facility], [place], [address], 01/08/2025 05:01:37 01/08/20 25 01/07/2025 GTT - GESTA RAMONA L, 3 HOUR, ACOG glucose, 2 hour acog 137 mg/dL 70-154 Not Available [facility] (Lab) [address] [facility], [place], [address], 01/08/2025 05:01:37 01/08/20 25 01/07/2025 GTT - GESTA RAMONA L, 3 HOUR, ACOG glucose, 3 hour acog 67 mg/dL 70-139 low Not Available [facility] (Lab) [address] [facility], [place], [address], 01/08/2025 05:01:37 09/07/19 25 09/06/2024 US, gisel tric, nucha l trans lucen cy No observ ation record ed. [email or web address] [facility] [address], [place], [address], 09/06/2024 14:10:27 09/07/1909/06/2024 US, obste tric, follo w-up No observ ation record ed. [email or web address] [facility] [address], [place], [address], 10/06/2024 07:11:03 11/06/19 25 11/05/2024 US, obste tric, 2nd or 3rd trime ster No observ ation record ed. [facility] [address], [place], [address], 11/05/2024 18:38:30 11/06/19 25 11/05/2024 US, obste tric, 2nd or 3rd trime ster No observ ation record ed. [email or web address] [address] [address], [place], [address], 11/06/2024 23:15:18 12/04/19 25 12/03/2024 US, obste tric, follo w-up No observ ation record ed. [facility] [address], [place], [address], 12/03/2024 13:30:04 12/04/19 25 12/03/2024 US, obste tric, follo w-up No observ ation record ed. [email or web address] [facility] [address], [place], [address], 12/05/2024 21:27:02 01/15/20 25 01/14/2025 non-s tress test No observ ation record ed. [address], [place], [address], 01/19/2025 12:09:24 02/17/20 25 02/16/2025 non-s tress test No observ ation record ed. [address], [place], [address], 02/24/2025 09:03:15 Result Notes None recorded. Problems Name Problem SNOMED Code Status Onset Date Resolution Date Notes Provider Name and Address Organization Details Recorded Time Gestatio nal diabetes mellitus 82273277 Completed Historic al Insulin Dependen t - to have early testing Stanley Talbot MD [address], [place], [address], [facility] 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, [facility] 5 11:46:12 Erythema nodosum [id number] Completed 2024 restrict ed to pregnanc y, given supporti ve care recommen dations. Stanley Talbot MD [address], [place], [address], [facility] 5 14:46:51 Problem Notes None recorded. Procedures Surgical History Date Name Laterality Status Provider Name and Address Organization Details Recorded Time 5 Date of Last Pap Smear completed Gabriela Booker [facility] 08/11/2024 15:13:33 4 termination of completed Gabrielaabbey Booker [facility] 08/11/2024 15:17:45 Imaging Results None [...] Elsewher e: No Locat ion: Viraj das [facility] odify By: ashly Silva nter DateTime : 08/07/19 19 08:30:00 AM Not Available Not Available Not Available Flagyl 500 mg tablet take 1 tablet by oral route every 12 hours 09/16 completed Prescrib ed Elsewher e: No Locat ion: [facility] das [facility] odify By: eliot osoriounter DateTime : 08/11/19 19 11:10:58 AM Not [...] Elsewher e: Yes Loca tion: [facility] das [facility] odify By: elito osoriounter DateTime : 04/11/20 17 11:00:00 AM Not Available Not Available Not Available mupirocin 2 % topical ointment APPLICAT ION SITE: APPLY TO AFFECTED AREA TWICE DAILY FOR 7 DAYS 07/28 completed Not Available Not Available Not Available Bactrim DS 800 mg-160 mg tablet take 1 tablet by oral route every 12 hours 08/06 completed Prescrib ed Elsewher e: No Locat ion: [facility]aj das [facility] odify By: alexia osoriounter DateTime : 04/11/20 17 11:00:00 AM Not Available Not Available Not Available Zithromax 500 mg tablet take 2 tablet by oral route once 09/16 completed Prescrib ed Elsewher e: No Locat ion: [facility]aj das [facility] odify By: eliot Das ncounter DateTime : 08/07/19 19 09:09:52 AM Not Available Not Available Not Available Ortho-Cyc arlene (28) 0.25 mg-35 mcg tablet take 1 tablet by oral route every day 09/09 completed Prescrib ed Elsewher e: No Locat ion: Viraj das [facility] odify By: lbillhar tz Encou nter DateTime : 08/07/19 08:30:00 AM Not Available Not Available Not Available active Not Available Not Avai lable Not Available Tawanna 14 mcg/24 hr (up to 3 years) 13.5 mg intrauter ine device 08/06 completed Prescrib ed Elsewher e: Yes Loca tion: [facility] odify By: ashly tz Encou nter DateTime : 11/09/19 09:45:00 AM Not Available Not Available Not Available Vitals Date Recorded Body weight Body mass index (BMI) Body height Systolic And Diastolic Provider Name and Address Organization Details Last Updated DateTime 03/24/2025 930307.79 932 g 38.1 kg/m2 167.64 cm 121/82 mm[Hg] Gabriela Booker [facility] 03/24/2025 11:44:57 Social History Question Answer Notes LastModified by Organizat ion Details LastModified Time Tobacco Smoking Status Never Smoker Gabriela Booker null, [facility] 08/11/2024 15:17:19 In The 14 [...] ICD10 Code Diagnosis IMO Codes Diagnosis Note [id number] Stanley Talbot MD [facility] [address] [address] 03/24/2025 11:32:26 03/24/2025 12:04:35 state 94233734 Z39.2 [id number] This patient is a 24-year-ol d female who presents for care. Her baby is bottle feeding. Her baby is doing very well. Her mood is good. She has not had intercours e. Her bleeding is resolved. contracept ion - salpingect jessica. F/U in 3 months Health Concerns Section Related Observation LastModified by Organization Osiris bartlett LastModified Time None Recorded Concern Status LastModified by Organization Details LastModified Time None Recorded Payers Encounter Date Sequence Insurance Name Policy Number Policy Cano Covered Member ID Cano Member ID Guarantor Name 03/24/2025 1 [facility] (MEDICAID HMO) [id number] Becky Tao [id number] Becky Tao Notes Date Note Type Note Provider Name and Address Organization Details Recorded Time 03/24/2025 text/html VisitReported by Patient This patient is a 24-year-old female who presents for care. Her baby is bottle feeding. Her baby is doing very well. Her mood is good. She has not had intercourse. Her bleeding is resolved. contraception - salpingectomy. F/U in 3 months Stanley Talbot MD [address], [place], [address], [facility] 03/24/2025 12:02:38 OBGyn Episode Ob Episode Information Episode Created Date Number of Fetuses Patient Bloodtype Patient rh Status Prepregnancy Weight lbs Domestic Partner Domestic Partner Phone Father Name Shoder Filler Status 09/07/19 25 1 O Positive 234 Sukhwinder CLOSED Fetus Data First Name Last Name Admitted to NICU Weight (g) Sex Living Outcome Pediatric Complications Fetus ID Race Codes Race Delivery Type false 3090.09 55 F true Full Term [id number] Vaginal Delivery Problems Problem Notes Synechiae baby moves freely Problem Name Start Date End Date Resolution Snomed Code Not e Gestational diabetes mellitus [id number] Historical Insu dameon Dependent - to have early testing Erythema nodosum 10/04/2024 [id number] re stricted to , given supportive care [...] Weight in lbs Pre/Post Dialysis Refused Weight 240.975869314154 BP Diastolic BP Location Tested BP Systolic [...] Weight in lbs Pre/Post Dialysis Refused Weight 246.159134370717 BP Diastolic BP Location Tested BP Systolic [...] Weight in lbs Pre/Post Dialysis Refused Weight 245.343618985443 BP Diastolic BP Location Tested BP Systolic [...] Type Weight in lbs Pre/Post Dialysis Refused 248.723385016008 BP Diastolic BP Location Tested BP Systolic [...] Type Weight in lbs Pre/Post Dialysis Refused 251.81741387768 BP Diastolic BP Location Tested BP Systolic [...] Weight in lbs Pre/Post Dialysis Refused Weight 253.314095911555 BP Diastolic BP Location Tested BP Systolic [...] Weight in lbs Pre/Post Dialysis Refused Weight 253.320287929644 BP Diastolic BP Location Tested BP Systolic [...] Type Weight in lbs Pre/Post Dialysis Refused 254.047674202885 BP Diastolic BP Location Tested BP Systolic [...] Type Weight in lbs Pre/Post Dialysis Refused 236.985210991794 BP Diastolic BP Location Tested BP Systolic [...]
--- OUTSIDE RECORDS SUMMARY | 2025-05-04 00:43 | XMS_ITS | Continuity of Care Document ---
Author Organization [facility] Address [address] [place] [address] Assessment Encounter Date Assessment Date Assessment LastModified by Organization Details LastModified Time 02/18/2025 02/18/2025 Patient is ___weeks . Discussed [...] men Date: 2024 1416 Resul t Date: 20247 Resul t Statu s: Final resul t Abnor mal: No Resul ting Lab: [facility] [address] [facility] [address] Tel: CULTU RE ----- ----- ----- --- No growt h in 1 day (dete ction level of 10,00 0 colon ies / ml.) Not Available [facility] (Lab) [address], [place], [address], 09/07/2024 22:41:47 09/07/19 25 09/06/2024 drug scree n, urine Amphetamines : negati ve Not Available [facility] [address], [place], [address], 09/06/2024 15:16:04 09/07/19 25 09/06/2024 drug scree n, urine Cannabinoids : negati ve Not Available [place] [address], [place], [address], 09/06/2024 15:16:04 09/07/19 25 09/06/2024 drug scree n, urine Cocaine: negati ve Not Available [place] [address], [place], [address], 09/06/2024 15:16:04 09/07/19 25 09/06/2024 drug scree n, urine Opiates: negati ve Not Available [place] [address], [place], [address], 09/06/2024 15:16:04 09/07/19 25 09/06/2024 drug scree n, urine Phenocyclidi ne: negati ve Not Available [place] [address], [place], [address], 09/06/2024 15:16:04 09/07/19 25 09/06/2024 drug scree n, urine Barbiturates : negati ve Not Available [place] [address], [place], [address], 09/06/2024 15:16:04 09/07/19 25 09/06/2024 drug scree n, urine Benzodiazepi maria de jesus: negati ve Not Available [facility] [address], [place], [address], 09/06/2024 15:16:04 09/07/19 25 09/06/2024 drug scree n, urine Ethanol: negati ve Not Available [facility] [address], [place], [address], 09/06/2024 15:16:04 09/07/19 25 09/06/2024 drug scree n, urine Hallucinogen s: negati ve Not Available [facility] [address], [place], [address], 09/06/2024 15:16:04 09/07/19 25 09/06/2024 drug scree n, urine Inhalants: negati ve Not Available [facility] [address], [place], [address], 09/06/2024 15:16:04 09/07/19 25 09/06/2024 drug scree n, urine Anabolic Steroids: negati ve Not Available [facility] [address], [place], [address], 09/06/2024 15:16:04 09/07/19 25 09/06/2024 drug scree n, urine Other: negati ve Not Available [facility] [address], [place], [address], 09/06/2024 15:16:04 11/06/19 25 11/05/2024 GTT - GESTA RAMONA L SCREE N, ACOG OB glucose, 1 hour screen 124 mg/dL 70-135 Not Available [facility] (Lab) [address], [place], [address], 11/06/2024 13:44:23 11/06/19 11/05/2024 HIV 1/2 ANTIG EN/AN TIBOD Y, REFLE X CONFI RMATI ON HIV antigen/anti body Nonrea ctive nonrea ctive HIV-1 antig en and HIV-1 /HIV- 2 antib odies were not detec mansoor. No labor atory evide nce of HIV infec tion. Not Available [facility] (Lab) [address], [place], [address], 11/06/2024 13:44:23 11/06/19 25 11/05/2024 HEMOG LOBIN (HGB) HGB 10.3 g/dL (based on docume nted legal sex) 11.6-1 5.4 low Not Available [facility] (Lab) [address], [place], [address], 11/06/2024 13:44:24 11/06/19 25 11/05/2024 HEMAT OCRIT (HCT) HCT 32.0 % (based on docume nted legal sex) 34.0-4 5.0 low Not Available [facility] (Lab) [address], [place], [address], 11/06/2024 13:44:24 11/06/19 25 11/05/2024 RPR SCREE N, REFLE X TITER /CONF IRMAT ION RPR qualitative Nonrea ctive nonrea ctive Not Available [facility] (Lab) [address], [place], [address], 11/06/2024 13:44:24 12/31/19 25 12/30/2024 HEMOG LOBIN (HGB) HGB 10.4 g/dL (based on docume nted legal sex) 11.6-1 5.4 low Not Available [facility] (Lab) [address], [place], [address], 12/31/2024 06:29:20 12/31/19 25 12/30/2024 HEMAT OCRIT (HCT) HCT 32.6 % (based on docume nted legal sex) 34.0-4 5.0 low Not Available [facility] (Lab) [address], [place], [address], 12/31/2024 06:29:20 12/31/19 25 12/30/2024 GTT - GESTA RAMONA L SCREE N, ACOG OB glucose, 1 hour screen 145 mg/dL 70-135 high Not Available [facility] (Lab) [address], [place], [address], 12/31/2024 06:29:21 01/08/20 25 01/07/2025 GTT - GESTA RAMONA L, 3 HOUR, ACOG glucose, fasting acog 76 mg/dL 70-94 Not Available [facility] (Lab) [address], [place], [address], 01/08/2025 05:01:37 01/08/20 25 01/07/2025 GTT - GESTA RAMONA L, 3 HOUR, ACOG glucose, 1 hour acog 143 mg/dL 70-179 Not Available [facility] (Lab) [address], [place], [address], 01/08/2025 05:01:37 01/08/20 25 01/07/2025 GTT - GESTA RAMONA L, 3 HOUR, ACOG glucose, 2 hour acog 137 mg/dL 70-154 Not Available [facility] (Lab) [address], [place], [address], 01/08/2025 05:01:37 01/08/20 25 01/07/2025 GTT - GESTA RAMONA L, 3 HOUR, ACOG glucose, 3 hour acog 67 mg/dL 70-139 low Not Available [facility] (Lab) [address] [place], [address], 01/08/2025 05:01:37 09/07/19 25 09/06/2024 US, obste tric, nucha l trans lucen cy No observ ation record ed. [email or web address] [address], [place], [address], 09/06/2024 14:10:27 09/07/19 25 09/06/2024 US, obste tric, follo w-up No observ ation record ed. [email or web address] [address], [place], [address], 10/06/2024 07:11:03 11/06/19 25 11/05/2024 US, obste tric, 2nd or 3rd trime ster No observ ation record ed. [facility] [address], [place], [address], 11/05/2024 18:38:30 11/06/19 25 11/05/2024 US, obste tric, 2nd or 3rd trime ster No observ ation record ed. [address], [place], [address], 11/06/2024 23:15:18 12/04/19 25 12/03/2024 US, obste tric, follo w-up No observ ation record ed. [facility] [address], [place], [address], 12/03/2024 13:30:04 12/04/19 25 12/03/2024 US, obste tric, follo w-up No observ ation record ed. [email or web address] [address], [place], [address], 12/05/2024 21:27:02 01/15/20 25 01/14/2025 non-s tress test No observ ation record ed. [place] [id number] [facility] [address], [place], [address], 01/19/2025 12:09:24 02/17/20 25 02/16/2025 non-s tress test No observ ation record ed. [facility] [place] [address], [place], [address], 02/24/2025 09:03:15 Result Notes None recorded. Problems Name Problem SNOMED Code Status Onset Date Resolution Date Notes Provider Name and Address Organization Details Recorded Time Gestatio nal diabetes mellitus 73942665 Completed Historic al Insulin Dependen t - to have early testing Stanley Talbot MD [address], [place], [address], [facility] 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 5 11:46:12 Erythema nodosum [id number] Completed 2024 restrict ed to pregnanc y, given supporti ve care recommen dations. Stanley Talbot MD [address], [place], [address], [facility] 5 14:46:51 Problem Notes None recorded. Procedures Surgical History Date Name Laterality Status Provider Name and Address Organization Details Recorded Time 5 Date of Last Pap Smear completed Gabriela Booker [facility] 08/11/2024 15:13:33 4 termination of completed Gabriela Booker [facility] 08/11/2024 15:17:45 Imaging Results None recorded. [...] [facility] odify By: ashly tz Encou nter DateTime : 08/07/19 08:30:00 AM Not Available Not Available Not Available Flagyl 500 mg tablet take 1 tablet by oral route every 12 hours 09/16 completed Prescrib ed Elsewher e: No Locat ion: Viraj das [facility] odify By: amkdionne Das ncounter DateTime : 08/11/19 11:10:58 AM [...] odify By: amkdionne Das ncounter DateTime : 04/11/20 17 11:00:00 [...] [facility] odify By: tmkodak Das ncounter DateTime : 04/11/20 17 11:00:00 AM Not Available Not Available Not Available Zithromax 500 mg tablet take 2 tablet by oral route once 09/16 completed Prescrib ed Elsewher e: No [facility] By: amkdionne Das ncounter DateTime : 08/07/19 19 09:09:52 AM Not Available Not Available Not Available Ortho-Cyc arlene (28) 0.25 mg-35 mcg tablet take 1 tablet by oral route every day 09/09 completed Prescrib ed Elsewher e: No Locat ion: Viraj das [facility] odify By: ashly mai Encou nter DateTime : 08/07/19 08:30:00 AM Not Available Not Available Not Available active Not Available Not Avai lable Not Available Tawanna 14 mcg/24 hr (up to 3 years) 13.5 mg intrauter ine device 08/06 completed Prescrib ed Elsewher e: Yes Loca tion: Viraj das [facility] odify By: ashly mai Encou nter DateTime : 11/09/19 09:45:00 AM Not Available Not Available Not Available Vitals Date Recorded Body weight Systolic And Diastolic Provider Name and Address Organization Details Last Updated DateTime 02/18/2025 834919.07751 g 122/87 mm[Hg] Gabriela Booker [facility] 02/18/2025 11:58:45 Social History Question Answer Notes LastModified by Organizat ion Details LastModified Time Tobacco Smoking Status Never Smoker Gabriela Booker null, [facility] 08/11/2024 15:17:19 In The 14 Days [...] ICD10 Code Diagnosis IMO Codes Diagnosis Note [id number] Stanley Tlabot MD [place] [address] [address] 01/21/2025 09:55:09 01/21/2025 10:41:39 care status 086211802 Z34.83 [id number] Stanley Talbot MD [place] [address] [address] 02/04/2025 10:04:36 02/04/2025 11:05:58 care status 540002724 Z34.83 [id number] Stanley Talbot MD [place] [address] [address] 02/18/2025 11:14:51 02/18/2025 12:39:27 care status 900023274 Z34.83 [id number] Health Concerns Section Related Observation LastModified by Organization Detai ls LastModified Time None Recorded Concern Status LastModified by Organization Details LastModified Time None Recorded Payers Encounter Date Sequence Insurance Name Policy Number Policy Cano Covered Member ID Cano Member ID Guarantor Name 02/18/2025 1 [facility] (MEDICAID HMO) [id number] Becky Tao [id number] Becky Tao Notes Date Note Type Note Provider Name and Address Organization Details Recorded Time 02/18/2025 text/html Generic HPI TemplateReported by Patient Stanley Talbot MD [address], [place], [address], [facility] 02/18/2025 12:31:56 OBGyn Episode Ob Episode Information Episode Created Date Number of Fetuses Patient Bloodtype Patient rh Status Prepregnancy Weight lbs Domestic Partner Domestic Partner Phone Father Name Contract Serviceman Status 09/07/19 25 1 O Positive 234 Sukhwinder CLOSED Fetus Data First Name Last Name Admitted to NICU Weight (g) Sex Living Outcome Pediatric Complications Fetus ID Race Codes Race Delivery Type false [id number] [id number] F true Full Term [id number] Vaginal Delivery Problems Problem Notes Synechiae baby moves freely Problem Name Start Date End Date Resolution Snomed Code Not e Gestational diabetes mellitus [id number] Historical Insu dameon Dependent - to have early testing Erythema nodosum 10/04/2024 [id number] re stricted to , given supportive care [...] Gestation 0 [email or web address] 09/06/2024 03/23/20 25 0 Pre-evan Flowsheet Flowsheet Date 09/06/2024 Jhaveri Score Blood Edema Fundus Height Fundus Units Glucose Ketones Leukocytes Nitrite Labor Signs Protein Cervic Dilation Cervic Effacement Cervic Station Type Weight in lbs Pre/Post Dialysis Refused Weight 240.657309674303 BP Diastolic BP Location Tested BP Systolic [...] Weight in lbs Pre/Post Dialysis Refused Weight 246.365204749852 BP Diastolic BP Location Tested BP Systolic [...] Weight in lbs Pre/Post Dialysis Refused Weight 245.550612558285 BP Diastolic BP Location Tested BP Systolic [...] Present Fetus Movement Comments Flowsheet Date 12/03/2024 Jhaevri Score Blood Edema Fundus Height Fundus Units Glucose Ketones Leukocytes Nitrite Labor Signs Protein Cervic Dilation Cervic Effacement Cervic Station Type Weight in lbs Pre/Post Dialysis Refused 248.205555322391 BP Diastolic BP Location Tested BP Systolic [...] Type Weight in lbs Pre/Post Dialysis Refused 251.11402741022 BP Diastolic BP Location Tested BP Systolic [...] Weight in lbs Pre/Post Dialysis Refused Weight 253.082485813694 BP Diastolic BP Location Tested BP Systolic [...] Weight in lbs Pre/Post Dialysis Refused Weight 253.101148214179 BP Diastolic BP Location Tested BP Systolic [...] Type Weight in lbs Pre/Post Dialysis Refused 254.295200792929 BP Diastolic BP Location Tested BP Systolic [...] Type Weight in lbs Pre/Post Dialysis Refused 236.913712921502 BP Diastolic BP Location Tested BP Systolic [...]
--- OUTSIDE RECORDS SUMMARY | 2025-05-04 00:43 | XMS_ITS | Clinical Summary ---
Author Organization [facility] Address [address] [place] [address] Phone Care Team Providers Care Manager Marketing Communications Name Role Phone Unavailable Primary Care Provider Unavailabl e Social History Tobacco Use Types Packs/Day Years Used Date Smoking Tobacco: Never Assessed Comments Unknown Sex and Gender Information Value Date Recorded Sex Assigned at Not on file Legal Sex Female 2:17 PM CDT Gender Identity Not on file Sexual Orientation Not on file Plan of Treatment Health Maintenance Due Date Last Done Comments DTAP/TDAP/TD VACCINES (1 - Tdap) 2017 HEPATITIS B VACCINES (1 of 3 - 19+ 3-dose series) 12/2016 CERVICAL CANCER SCREENING 2019 HPV/Cotest (21-29) 2019 PAP SMEAR 2019 INFLUENZA VACCINE (#1) 2024 HPV VACCINES (No Doses Required) Completed Insurance [id number] SILVERIO [id number] [address] MEDICAID [place]
--- OUTSIDE RECORDS SUMMARY | 2025-05-04 00:43 | XMS_ITS | Clinical Summary ---
Author Organization [facility] Address [address] [place] [address] Phone Care Team Providers Care Marketing Effectiveness Manager Name Role Phone Provider, None Primary Care [...] 999, 1998, 1998 TdaP Immunization Discontinued 11/08/2008 Varicella Immunization Completed 11/08/2008, 1999 Human Papillomavirus (HPV) Immunization Completed 01/17/2014, 03/04/2013, 03/01/2013, Additional history exists Meningococcal Immunization (ACWY) Completed 12/26/2015, 11/07/2009 Pneumococcal Immunization Combined Aged Out No longer eligible based on patient's age to complete this topic Rotavirus Immunization Aged Out No lo nger eligible based on patient's age to complete this topic Insurance [place]ICAID [place] Care Teams Marketing Effectiveness Manager Relationship Specialty Start Date End Date Provider, None [facility] PCP - General 11/20/21
--- OUTSIDE RECORDS SUMMARY | 2025-05-04 00:43 | XMS_ITS | Continuity of Care Document ---
Author Organization [facility] Address [address] [place] [address] Assessment Encounter Date Assessment Date Assessment LastModified by Organization Details LastModified Time 02/04/2025 02/04/2025 Patient is ___weeks . Discussed [...] t Abnor mal: No Resul ting Lab: [facility] [address] [facility] [address] Tel: CULTU RE ----- ----- ----- --- No growt h in 1 day (dete ction level of 10,00 0 colon ies / ml.) Not Available [facility] (Lab) [address], [place], [address], 09/07/2024 22:41:47 09/07/19 25 09/06/2024 drug scree n, urine Amphetamines : negati ve Not Available [facility] [address], [place], [address], 09/06/2024 15:16:04 09/07/19 25 09/06/2024 drug scree n, urine Cannabinoids : negati ve Not Available [facility] [address], [place], [address], 09/06/2024 15:16:04 09/07/19 25 09/06/2024 drug scree n, urine Cocaine: negati ve Not Available [facility] [address], [place], [address], 09/06/2024 15:16:04 09/07/19 25 09/06/2024 drug scree n, urine Opiates: negati ve Not Available [facility] [address], [place], [address], 09/06/2024 15:16:04 09/07/19 25 09/06/2024 drug scree n, urine Phenocyclidi ne: negati ve Not Available [facility] [address], [place], [address], 09/06/2024 15:16:04 09/07/19 25 09/06/2024 drug scree n, urine Barbiturates : negati ve Not Available [facility] [address], [place], [address], 09/06/2024 15:16:04 09/07/19 25 09/06/2024 drug scree n, urine Benzodiazepi maria de jesus: negati ve Not Available [facility] [address], [place], [address], 09/06/2024 15:16:04 09/07/19 25 09/06/2024 drug scree n, urine Ethanol: negati ve Not Available [facility] [address], [place], [address], 09/06/2024 15:16:04 09/07/19 25 09/06/2024 drug scree n, urine Hallucinogen s: negati ve Not Available [facility] [address], [place], [address], 09/06/2024 15:16:04 09/07/19 25 09/06/2024 drug scree n, urine Inhalants: negati ve Not Available [facility] [address], [place], [address], 09/06/2024 15:16:04 09/07/19 25 09/06/2024 drug scree n, urine Anabolic Steroids: negati ve Not Available [facility] [address], [place], [address], 09/06/2024 15:16:04 09/07/19 25 09/06/2024 drug scree n, urine Other: negati ve Not Available [facility] [address], [place], [address], 09/06/2024 15:16:04 11/06/19 25 11/05/2024 GTT - GESTA RAMONA L SCREE N, ACOG OB glucose, 1 hour screen 124 mg/dL 70-135 Not Available [facility] (Lab) [address] [facility], [place], [address], 11/06/2024 13:44:23 11/06/19 11/05/2024 HIV 1/2 ANTIG EN/AN TIBOD Y, REFLE X CONFI RMATI ON HIV antigen/anti body Nonrea ctive nonrea ctive HIV-1 antig en and HIV-1 /HIV- 2 antib odies were not detec mansoor. No labor atory evide nce of HIV infec tion. Not Available [facility] (Lab) [address] [facility], [place], [address], 11/06/2024 13:44:23 11/06/19 25 11/05/2024 HEMOG LOBIN (HGB) HGB 10.3 g/dL (based on docume nted legal sex) 11.6-1 5.4 low Not Available [facility] (Lab) [address] [facility], [place], [address], 11/06/2024 13:44:24 11/06/19 25 11/05/2024 HEMAT OCRIT (HCT) HCT 32.0 % (based on docume nted legal sex) 34.0-4 5.0 low Not Available [facility] (Lab) [address] [facility], [place], [address], 11/06/2024 13:44:24 11/06/19 25 11/05/2024 RPR SCREE N, REFLE X TITER /CONF IRMAT ION RPR qualitative Nonrea ctive nonrea ctive Not Available [facility] (Lab) [address] [facility], [place], [address], 11/06/2024 13:44:24 12/31/19 25 12/30/2024 HEMOG LOBIN (HGB) HGB 10.4 g/dL (based on docume nted legal sex) 11.6-1 5.4 low Not Available [facility] (Lab) [address] [facility], [place], [address], 12/31/2024 06:29:20 12/31/19 25 12/30/2024 HEMAT OCRIT (HCT) HCT 32.6 % (based on docume nted legal sex) 34.0-4 5.0 low Not Available [facility] (Lab) [address] [facility], [place], [address], 12/31/2024 06:29:20 12/31/19 25 12/30/2024 GTT - GESTA RAMONA L SCREE N, ACOG OB glucose, 1 hour screen 145 mg/dL 70-135 high Not Available [facility] (Lab) [address] [facility], [place], [address], 12/31/2024 06:29:21 01/08/20 25 01/07/2025 GTT - GESTA RAMONA L, 3 HOUR, ACOG glucose, fasting acog 76 mg/dL 70-94 Not Available [facility] (Lab) [address] [facility], [place], [address], 01/08/2025 05:01:37 01/08/20 25 01/07/2025 GTT - GESTA RAMONA L, 3 HOUR, ACOG glucose, 1 hour acog 143 mg/dL 70-179 Not Available [facility] (Lab) [address] [facility], [place], [address], 01/08/2025 05:01:37 01/08/20 25 01/07/2025 GTT - GESTA RAMONA L, 3 HOUR, ACOG glucose, 2 hour acog 137 mg/dL 70-154 Not Available [facility] (Lab) [address] [facility], [place], [address], 01/08/2025 05:01:37 01/08/20 25 01/07/2025 GTT - GESTA RAMONA L, 3 HOUR, ACOG glucose, 3 hour acog 67 mg/dL 70-139 low Not Available [facility] (Lab) [address] [place], [address], 01/08/2025 05:01:37 09/07/19 25 09/06/2024 US, obste tric, nucha l trans lucen cy No observ ation record ed. [email or web address] [address], [place], [address], 09/06/2024 14:10:27 09/07/19 25 09/06/2024 US, obste tric, follo w-up No observ ation record ed. [email or web address] [address], [place], [address], 10/06/2024 07:11:03 11/06/19 25 11/05/2024 US, obste tric, 2nd or 3rd trime ster No observ ation record ed. [facility] [address], [place], [address], 11/05/2024 18:38:30 11/06/19 25 11/05/2024 US, obste tric, 2nd or 3rd trime ster No observ ation record ed. [email or web address] [address], [place], [address], 11/06/2024 23:15:18 12/04/19 25 12/03/2024 US, obste tric, follo w-up No observ ation record ed. [facility] [address], [place], [address], 12/03/2024 13:30:04 12/04/19 25 12/03/2024 US, obste tric, follo w-up No observ ation record ed. [email or web address] [address], [place], [address], 12/05/2024 21:27:02 01/15/20 25 01/14/2025 non-s tress test No observ ation record ed. [place] [id number] [facility] [address], [place], [address], 01/19/2025 12:09:24 02/17/20 25 02/16/2025 non-s tress test No observ ation record ed. [facility] [address], [place], [address], 02/24/2025 09:03:15 Result Notes None recorded. Problems Name Problem SNOMED Code Status Onset Date Resolution Date Notes Provider Name and Address Organization Details Recorded Time Gestatio nal diabetes mellitus 80676675 Completed Historic al Insulin Dependen t - to have early testing Stanley Talbot MD [address], [place], [address], [facility] 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 5 11:46:12 Erythema nodosum [id number] Completed 2024 restrict ed to pregnanc y, given supporti ve care recommen dations. Stanley Talbot MD [address], [place], [address], [facility] 5 14:46:51 Problem Notes None recorded. Procedures Surgical History Date Name Laterality Status Provider Name and Address Organization Details Recorded Time 5 Date of Last Pap Smear completed Gabriela Booker [facility] 08/11/2024 15:13:33 4 termination of completed Gabriela Booker [facility] 08/11/2024 15:17:45 Imaging Results None recorded. [...] Elsewher e: No Locat ion: Viraj das [facility] odify By: ashly tz Encou nter DateTime : 08/07/19 08:30:00 AM Not Available Not Available Not Available Flagyl 500 mg tablet take 1 tablet by oral route every 12 hours 09/16 completed Prescrib ed Elsewher e: No Locat ion: Viraj das [facility] odify By: amkdionne Das ncounter DateTime [...] Elsewher e: Yes Loca tion: Viraj das [facility] odify By: amkdionne Das ncounter DateTime [...] Elsewher e: No Locat ion: Viraj das [facility] odify By: tmkodak Das ncounter DateTime : 04/11/20 17 11:00:00 AM Not Available Not Available Not Available Zithromax 500 mg tablet take 2 tablet by oral route once 09/16 completed Prescrib ed Elsewher e: No [facility]: amkdionne Das ncounter DateTime : 08/07/19 19 09:09:52 AM Not Available Not Available Not Available Ortho-Cyc arlene (28) 0.25 mg-35 mcg tablet take 1 tablet by oral route every day 09/09 completed Prescrib ed Elsewher e: No Locat ion: Dick thiago [facility] odify By: ashly tz Encou nter DateTime : 08/07/19 08:30:00 AM Not Available Not Available Not Available active Not Available Not Avai lable Not Available Tawanna 14 mcg/24 hr (up to 3 years) 13.5 mg intrauter ine device 08/06 completed Prescrib ed Elsewher e: Yes Loca tion: Viraj das [facility] odify By: ashly tz Encou nter DateTime : 11/09/19 09:45:00 AM Not Available Not Available Not Available Vitals Date Recorded Body height Body mass index (BMI) Body weight Systolic And Diastolic Provider Name and Address Organization Details Last Updated DateTime 02/04/2025 167.64 cm 40.8 kg/m2 933206.87 g 123/80 mm[Hg] Gabriela Booker [facility] 02/04/2025 10:23:09 Social History Question Answer Notes LastModified by Organizat ion Details LastModified Time Tobacco Smoking Status Never Smoker Gabriela Booker [facility], [facility] 08/11/2024 15:17:19 In The 14 Days [...] ICD10 Code Diagnosis IMO Codes Diagnosis Note [id number] Stanley Talbot MD [facility] [address] [address] 01/21/2025 09:55:09 01/21/2025 10:41:39 care status 535754608 Z34.83 [id number] Stanley Talbot MD [facility] [address] [address] 02/04/2025 10:04:36 02/04/2025 11:05:58 care status 808070027 Z34.83 [id number] Health Concerns Section Related Observation LastModified by Organization Detai ls LastModified Time None Recorded Concern Status LastModified by Organization Details LastModified Time None Recorded Payers Encounter Date Sequence Insurance Name Policy Number Policy Cano Covered Member ID Cano Member ID Guarantor Name 02/04/2025 1 [facility] (MEDICAID HMO) [id number] Becky Tao [id number] Becky Tao Notes Date Note Type Note Provider Name and Address Organization Details Recorded Time 02/04/2025 text/html Generic HPI TemplateReported by Patient Stanley Talbot MD [address], [place], [address], [facility] 02/04/2025 10:59:59 OBGyn Episode Ob Episode Information Episode Created Date Number of Fetuses Patient Bloodtype Patient rh Status Prepregnancy Weight lbs Domestic Partner Domestic Partner Phone Father Name Entry Level Staff Accountant Status 09/07/19 25 1 O Positive 234 Sukhwinder CLOSED Fetus Data First Name Last Name Admitted to NICU Weight (g) Sex Living Outcome Pediatric Complications Fetus ID Race Codes Race Delivery Type false 3090.09 53 F true Full Term [id number] Vaginal Delivery Problems Problem Notes Synechiae baby moves freely Problem Name Start Date End Date Resolution Snomed Code Not e Gestational diabetes mellitus [id number] Historical Insu dameon Dependent - to have early testing Erythema nodosum 10/04/2024 [id number] re stricted to , given supportive care [...] Weight in lbs Pre/Post Dialysis Refused Weight 240.878439737740 BP Diastolic BP Location Tested BP Systolic [...] Weight in lbs Pre/Post Dialysis Refused Weight 246.589780771579 BP Diastolic BP Location Tested BP Systolic [...] Weight in lbs Pre/Post Dialysis Refused Weight 245.675649397254 BP Diastolic BP Location Tested BP Systolic [...] Type Weight in lbs Pre/Post Dialysis Refused 248.133226399289 BP Diastolic BP Location Tested BP Systolic [...] Type Weight in lbs Pre/Post Dialysis Refused 251.22955177970 BP Diastolic BP Location Tested BP Systolic [...] Weight in lbs Pre/Post Dialysis Refused Weight 253.633353878986 BP Diastolic BP Location Tested BP Systolic [...] Weight in lbs Pre/Post Dialysis Refused Weight 253.151809736807 BP Diastolic BP Location Tested BP Systolic [...] Type Weight in lbs Pre/Post Dialysis Refused 254.663471168398 BP Diastolic BP Location Tested BP Systolic [...] Type Weight in lbs Pre/Post Dialysis Refused 236.077424494103 BP Diastolic BP Location Tested BP Systolic [...]
[2025-05-04] MEDS: LACTATED RINGERS 1,000 ML 30 ML IV CONT (07:35)
[2025-05-04] MEDS: KETOROLAC 15 MG/ML VIAL (*BKC) IV PUSH (07:40)
[2025-05-04] MEDS: ACETAMINOPHEN 500 MG TABLET 1000 MG PO (07:40)
--- NOTE | 2025-05-04 08:38 | P.PNAN_ITS ---
Anes - Initial Pre Proc Eval Procedure: Operation Date: 05/04/25 09:00 Proposed Procedures p Bilateral Laparoscopic Salpingectomy - Stanley Jensen MD Date/Time: 05/04/25 08:38 Surgeon: Stanley Jensen MD Pre Op Diagnosis: Unwanted Fertility Patient Data Age: 25 Gender: F Height: 1.68 m Weight: 110.5 kg Last Vital Signs Temp 36.6 C 05/04/25 07:15 Pulse 88 05/04/25 07:15 Resp 16 05/04/25 07:15 BP 131/86 05/04/25 07:15 Pulse Ox 100 05/04/25 07:15 O2 Del Method Room Air 05/04/25 07:15 Allergies Allergy/AdvReac Type Severity Reaction Status Date / Time No Known Allergies Allergy Unknown Verified 05/04/25 07:41 Home Medications ?Medication ?Instructions ?Recorded ?Confirmed ?Type No Home Medications 05/02/25 05/02/25 H istory Patient hx anesthesia problems: none Family hx anesthesia problems: none Results Review: All pre-operative results and documents have been reviewed as part of the pre-op erative evaluation. [facility] Past Medical History Medical History contractions Round ligament pain No pertinent past medical history Surgical History Surgical History No pertinent past surgical history Family History Family History Mother Colon cancer Hypertension Grandparent Acute myocardial infarction Social History Social History Social History: Non-smoker Smoking status: Never smoker Alcohol intake: never Substance use: never Substance use type: does not use Lack of Transportation: No Lack of Food: Never True Current Housing: I Have Housing Concerned About Future Housing: No Difficulty Paying Gas/Electric Bills: No Difficulty Paying for Meds: No Currently Unemployed: No Education: High School Diploma/GED Difficulty w/ Childcare or Family Care: No Living arrangements: with family Gender identity (if verbalized by the patient): Female Spiritual care concerns: No Anes - Eval Final PreProcedure Day of Procedure 05/04/25 08:38 Patient weight: morbidly obese Heart: regular rate and rhythm Lungs: clear to auscultation Airway: Mallampati scale class II Neurological: alert and oriented Last oral intake: >/= 8 hours ASA classification: III Emergent: no Anesthetic plan: proceed Anesthesia type and monitoring: general ETT and standard monitoring Results Review: All pre-operative results and documents have been reviewed as part of the pre- operative evaluation. Informed Consent: The patient's anesthetic plan and its attendant risks and benefits were discussed with the patient/family/POA. Questions were solicited and answers provided to the satisfaction of the patient/family/POA.
--- NOTE | 2025-05-04 09:00 | P.HP_ITS ---
H&P: HPI History of Present Illness Date/Time: 05/04/25 09:00 Chief Complaint: Unwanted fertility Narrative: This patient is a 25-year-old with unwanted fertility. We have agreed to perform laparoscopic bilateral salpingectomy. She understands risks, benefits, and alternatives. She has completed informed consent process and is ready to proceed. The patient understands the details of the procedure. The procedure has been explained in detail. She understands the risks. She understands that injuries may occur that result in hospitalization, more surgery, and severe illness. She understands risk of hemorrhage and infection. She denies any chest pain or shortness of breath. She denies any nausea, vomiting, fever, chills. Review of Systems Review of Systems: All systems reviewed & are unremarkable except as noted in HPI and below Constitutional: Constitutional: Denies chills, Denies fatigue, Denies fever(s) and Denies weakness Eyes: Eyes: Denies blurry vision, Denies change in vision, Denies loss of peripheral vision, Denies loss of vision, Denies other visual disturbances and Denies eye pain ENT: Denies vertigo, Denies dizziness, Denies hearing loss, Denies mouth pain, Denies nasal obstruction, Denies neck mass and Denies neck pain Cardiovascular: Cardiovascular: Denies chest pain, Denies diaphoresis, Denies syncope, Denies leg edema and Denies dyspnea Respiratory: Respiratory: Denies chest congestion, Denies cough, Denies hemoptysis, Denies dyspnea and Denies wheezing Gastrointestinal: Gastrointestinal: Denies abdominal pain, Denies constipation, Denies diarrhea, Denies nausea and Denies vomiting Genitourinary: Genitourinary: Denies hematuria, Denies change in libido, Denies nocturia, Denies genital lesions, Denies flank pain and Denies urinary urgency Musculoskeletal: Musculoskeletal: Denies abnormal gait, Denies back pain, Denies myalgias, Denies arthralgias, Denies joint swelling, Denies muscle weakness and Denies neck pain Integumentary/Breasts: Skin/Breast: Denies swelling, Denies breast pain, Denies breast mass, Denies dry skin, Denies nipple discharge, Denies unusual bruising and Denies jaundice Neurologic: Denies Neuro-related abnormal movements, Denies Abnormal speech present, Denies abnormal gait, Denies behavioral changes, Denies confusion, Denies vertigo, Denies dizziness, Denies syncope, Denies loss of vision, Denies memory loss, Denies convulsions and Denies weakness Psychiatric: Psychiatric: Denies abnormal sleep pattern, Denies behavioral changes, Denies change in libido, Denies confusion, Denies depression, Denies anhedonia and Denies memory loss Endocrine: Endocrine: Reports no additional endocrine complaints, Denies change in libido and Denies fatigue Hematologic/Lymphatic: Hematologic/Lymphatic: Reports no additional hematologic/lymphatic complaints Allergic/Immunologic: Allergic/Immunologic: Reports no additional allergic/immunologic complaints and Denies wheezing PMFSH Past Medical History Medical History contractions Round ligament pain No pertinent past medical history Surgical History Surgical History No pertinent past surgical history Family History Family History Mother Colon cancer Hypertension Grandparent Acute myocardial infarction Social History Social History Social History: Non-smoker Smoking status: Never smoker Alcohol intake: never Substance use: never Substance use type: does not use Lack of Transportation: No Lack of Food: Never True Current Housing: I Have Housing Concerned About Future Housing: No Difficulty Paying Gas/Electric Bills: No Difficulty Paying for Meds: No Currently Unemployed: No Education: High School Diploma/GED Difficulty w/ Childcare or Family Care: No Living arrangements: with family Gender identity (if verbalized by the patient): Female Spiritual care concerns: No Meds Home Medications and Allergies Home Medications ?Medication ?Instructions ?Recorded ?Confirmed ?Type No Home Medications 05/02/25 05/02/25 H istory Allergies Allergy/AdvReac Type Severity Reaction Status Date / Time No Known Allergies Allergy Unknown Verified 05/04/25 07:41 Vital Signs Vital Signs - 24 hr 05/04/25 07:15 Temperature 98 F Pulse Rate 88 Respiratory Rate 16 Blood Pressure 131/86 Pulse Oximetry 100 Oxygen Delivery Room Air Exam Const: General: cooperative, healthy appearing, comfortable and no acute distress Orientation/consciousness: oriented to person, oriented to place and oriented to time HENMT: Head: normal to inspection Ears: external ears normal Face/Nose/Sinus: Normal external nose present and normal facial exam Face and sinus: normal facial exam Eyes: General: appearance normal, both eyes and all related structures Neck: Neck: normal visual inspection, trachea midline and supple Resp: Auscultation: clear to auscultation bilaterally, no crackles, no rales, no rhonchi and no wheezes Cardio: Rate: regular rate Rhythm: regular rhythm Heart sounds: no click, no murmurs and no rubs GI: GI Palp: No abdominal tenderness, No Soft to palpation, No Tenderness to palpation present (GI) and No Palpable mass present Auscultation: normal bowel sounds Skin: General skin exam: normal color and no rashes or lesions noted Neuro: General: oriented to person, oriented to place and oriented to time Extrem: General: normal to inspection, no joint enlargement, no clubbing, cyanosis or edema, no pedal edema and no calf tenderness Psych: Appearance: grossly normal Mental Status: mental status grossly normal Speech and movement: Normal speech and movement present Assessment and Plan Assessment and plan (1) Unwanted fertility: Code(s): Z30.09 - Encounter for other general counseling and advice on contraception Status: Acute Plan This patient is a 25-year-old with unwanted fertility. We have agreed to perform laparoscopic bilateral salpingectomy. She understands risks, benefits, and alternatives. She has completed informed consent process and is ready to proceed.
--- NOTE | 2025-05-04 09:03 | WPDHPUPDATE1 ---
History and Physical Update Update Date/Time: 05/04/25 09:03 History and Physical has been reviewed, including an updated exam of the patient. There are NO changes in the patient's condition. Risks, benefits, and alternatives have been discussed and questions answered. Patient agrees to proceed with procedure.
--- NOTE | 2025-05-04 09:49 | S_PTH ---
PATIENT: Becky Tao LOC: [facility] U#:[id number] AGE/SX: 25/F ROOM: RE05/04/[address]: Stanley Jensen MD : 2000 BED: DIS: 05/04/2025 SPEC #: [id number] RECD: 05/04/25 11:23 STATUS: SANJANA REBharath #: [id number] GABI: 05/04/25 09:[address]: Stanley Jensen DEPT: [facility] Surgical RECD BY: Roxanne Neil MLT, ([facility]) ENTERED: 05/04/25 11:24 SP TYPE: Surgical OTHR DR: Neo Daniels, Tissues: A - Fallopian Tube Bilateral Procedures: Gross and Microscopic Level 2 Hematoxylin and Eosin Stain
--- NOTE | 2025-05-04 10:07 | P.OP_ITS ---
Procedure Note - Detailed Date of Procedure 05/04/25 Pre-op Diagnosis Unwanted Fertility Post-op Diagnosis Same Procedure Performed Laparoscopic bilateral salpingectomy Surgeon Stanley Jensen MD Anesthesia General Indications Unwanted fertility Findings Normal pelvic anatomy Description of Procedure The patient was taken the operating room. She was prepped and draped in the dorsal lithotomy position after induction of general anesthesia. A 5 mm skin incision was made in the left upper quadrant of the abdominal skin. A 5 mm trocar was inserted the intra-abdominal cavity under direct visualization of the scope. Pneumoperitoneum was achieved. A 5 mm trocar was inserted in the left lower quadrant identical fashion. A 5 mm infraumbilical trocar was inserted in identical fashion as well. The bilateral fallopian tubes were removed. This was done by using a LigaSure cautery. The mesosalpinx adjacent to the tube was cauterized transected with LigaSure. This was initiated in the area the ovary and in a stepwise fashion moved medially to the area of the cornu of the uterus. Once there the fallopian tube was cauterized and transected. This was done in identical fashion on each side. The fallopian tubes were taken out through the left lower quadrant trocar site. The pneumoperitoneum was reduced. The trocars removed. The skin was closed with subcuticular 4 Monocryl and covered with Derm abond. She was taken to cover stable condition. Sponge lap and needle counts were correct x2. Estimated Blood Loss 5 Drains No Packing No Pathology Yes Complications No immediate complications Condition Stable Disposition PACU
[2025-05-04 10:09] LABS: BEDSIDEPREGUCG Negative (Negative)
[2025-05-04] MEDS: fentaNYL CITRATE INJ (*CRX) 100 MCG/2 ML VIAL 25 MCG IV PUSH (10:55)
[2025-05-04] MEDS: oxyCODONE HCL (*CRX) 5 MG TAB IR PO (11:40)
== END 2025-05-04 12:35 | disposition home or self-care (01) ==
PROVIDERS: PCP Internal Medicine Infectious Disease; Visit Provider Obstetrics & Gynecology
PROC: (CPT 49320; principal; 2025-05-04 09:00)
DX: Z30.2 Encounter for sterilization (principal); E66.01 Morbid (severe) obesity due to excess calories; Z68.39 Body mass index [BMI] 39.0-39.9, adult
CPT/HCPCS: 58661; 88302; A9270; J0330; J1100; J1885; J2003; J2250; J2590; J2704; J3010; J7120